=== PATIENT | female | born 1945 | race Caucasian/White ===

== ENCOUNTER 2021-03-30 06:44 | Day surgery (SDC) | payer MEDICARE, SELFPAY ==
--- NOTE | 2021-03-29 15:52 | HP.PCM_ITS ---
History and Physical Date of Admission: 03/30/21 Taniya Rendon 1945 ??? CHIEF COMPLAINT: left lower quadrant abdominal pain, screeening for colon cancer ? HPI: The patient is a 75 year old female presents with complaint of left lower quadrant abdominal pain. She underwent a CT scan to determine if there was a recurrence of her spigelian hernia, no hernia identified on CT scan. She has not had a previous colonoscopy and I have offered her one. She denies noting blood in her stools. ? PAST MEDICAL HISTORY ? Back pain ? ? Degenerative arthritis ? ? PAST SURGICAL HISTORY ? CHOLECYSTECTOMY HX ? 09/23/2003 ? INGUINAL HERNIA REPAIR HX ? 02/02/2009 ?? Medications ? peg 3350-Electrolytes (GOLYTELY) 236-22.74-6.74 -5.86 gram suspension Take 4,000 mL by mouth one time only for 1 dose. Refer to printed prep instructions from your provider. ? OTC NUTRITIONAL SUPPLEMENT plexux ? ALLERGIES: Sulfa (Sulfonamide Antibiotics) ? PERSONAL HISTORY: ? Smoking status: Never Smoker ? Smokeless tobacco: Never Used Substance Use Topics ? Alcohol use: Not on file ? Drug use: Not on file ? FAMILY HISTORY: no colon cancer known in family. ?? REVIEW OF SYSTEMS: General - denies fevers,?patient denies weight loss however IMO she has lost weight since I last took care of her Cardiovascular - denies chest pain,?unknown?history of MD had EKG changes but states that NM cardiac study was normal Pulmonary - denies shortness of breath, denies coughing up blood Gastrointestinal -?see HPI, denies previous colonoscopy, denies constipation or diarrhea, denies hematemesis, denies blood in stools Neurological - denies seizures, denies chronic numbness/weakness of extremities, denies chronic headaches Genitourinary - denies burning with urination, denies blood in urine Hematological - denies spontaneous/prolonged bleeding Skin - denies nonhealing skin wounds Musculoskeletal -?had recent stem cell injection in right hip (costing $12K) from [facility], has back and neck pain Endocrine - denies diabetes, no thyroid problems Psychological ??denies hallucinations ? PHYSICAL EXAMINATION: General: The patient is 75 year old female, well nourished, well hydrated in no acute distress. The patient is oriented to time, place, and person. VITALS: Blood pressure 122/64, pulse 96, temperature 36.7 ?C (98 ?F), height 167.6 cm (5' 6), weight 61.2 kg (135 lb), SpO2 100 %. Body mass index is 21.79 kg/m?. Head ? Normocephalic. EOM intact with sclera clear and no icterus noted. Mouth with mucus membranes moist. Neck - supple with no jugular venous distention noted. Trachea is midline. Lungs ? clear to auscultation. Normal breath sounds. No rales/rhonchi/wheezing noted. No labored breathing noted, such as retractions. No cough heard. Heart ? normal S1 and S2 auscultated. No rubs/clicks/murmurs noted. Regular rate. Abdomen ? soft and benign. Normal bowel sounds. Extremities ? no calf tenderness noted. No pitting edema noted. Skin ? normal skin integrity. Neurological ? gait normal, no focal deficits noted. Psych ? calm and appropriate IMPRESSION: screening for colon cancer via colonoscopy ? PLAN: I have discussed the above with the patient. I have offered colonoscopy, possible biopsies I have explained the procedure to the patient. I have counseled the patient as to the risks of the procedure, including but not limited to: infection, bleeding, injury to any intrabdominal organs such as liver/spleen, perforation of the GI tract, inability to complete the procedure, complications of anesthesia, etc. ? the patient understands. The patient wishes to proceed. I have answered all questions to the patient?s satisfaction and the patient has no further questions. . Diagnoses: (Z12.11) Screening for colon cancer (primary encounter diagnosis) Return to Clinic: The patient is instructed to follow-up with me as above. ? Elena Degroot MD v
[2021-03-30 07:10] VITALS: BP 138/69; PULSE 54; RESP 16; TEMP 37.1; O2SAT 100; BMI 22.1
[2021-03-30] MEDS: Lactated Ringers 1,000 ML 75 ML IV (07:10)
[2021-03-30 07:56] VITALS: BP 120/62; BP 138/69; PULSE 77; RESP 14; TEMP 36.4; O2SAT 99
--- NOTE | 2021-03-30 07:57 | OP.COLON_ITS ---
Patient Name: Taniya Rendon Procedure Date: 03/30/2021 7:23 AM Date of : 1945 Age: 75 Procedure: Colonoscopy Indications: Screening for colorectal malignant neoplasm Providers: Elena Degroot MD Referring MD: Eva Grant Medicines: See the Anesthesia note for documentation of the administered medications Patient Profile: Refer to note in patient chart for documentation of history and physical. Last Colonoscopy: none. The patient's first colonoscopy is today. Complications: No immediate complications. Procedure: Pre-Anesthesia Assessment: - see anesthesia note After I obtained informed consent, the scope was passed under direct vision. Throughout the procedure, the patient's blood pressure, pulse, and oxygen saturations were monitored continuously. The colonoscope was introduced through the anus and advanced to the cecum, identified by the appendiceal orifice, IC valve and transillumination. The colonoscopy was performed without difficulty. The patient tolerated the procedure well. The quality of the bowel preparation was adequate. Scope In: 7:33:10 AM Scope Withdrawal Time 0 hours 6 minutes 26 seconds Scope Out: 7:50:55 AM Total Procedure Duration Time 0 hours 17 minutes 45 seconds Findings: The perianal and digital rectal examinations were normal. Pertinent negatives include normal sphincter tone. Multiple small and large-mouthed diverticula were found in the sigmoid colon (tortuous sigmoid colon), descending colon and transverse colon. Non-bleeding internal hemorrhoids were found. Impression: - Diverticulosis in the sigmoid colon, in the descending colon and in the transverse colon. - Non-bleeding internal hemorrhoids. - No specimens collected. Recommendation: - Return to primary care physician PRN. - No repeat colonoscopy due to current age (66 years or older). - Continue present medications. Procedure Code(s): --- Professional --- G0121, Colorectal cancer screening; colonoscopy on individual not meeting criteria for high risk Diagnosis Code(s): --- Professional --- Z12.11, Encounter for screening for malignant neoplasm of colon K64.8, Other hemorrhoids K57.30, Diverticulosis of large intestine without perforation or abscess without bleeding CPT copyright 2017 [employer]. All rights reserved. The codes documented in this report are preliminary and upon robot technician review may be revised to meet current compliance requirements. MD Elena Davidson MD 03/30/2021 7:57:17 AM This report has been signed electronically. Number of Addenda: 0 Note Initiated On: 03/30/2021 7:23 AM
--- NOTE | 2021-03-30 07:57 | OP.CCLET_ITS ---
03/30/2021 Eva Grant Re : Colonoscopy procedure for Taniya Rendon Dear Juanita This procedure was performed on Tuesday, March 30, 2021. My impressions and recommendations are as follows: Impressions : - Diverticulosis in the sigmoid colon, in the descending colon and in the transverse colon. - Non-bleeding internal hemorrhoids. - No specimens collected. Recommendations : - Return to primary care physician PRN. - No repeat colonoscopy due to current age (66 years or older). - Continue present medications. My findings are described in the full procedure note, which is enclosed. If I can be of further assistance, please feel free to contact me at Doctor phone number(s): , Work: . Sincerely, MD Elena Davidson MD 03/30/2021 7:57:17 AM This report has been signed electronically.
[2021-03-30 08:00] VITALS: BP 124/52; BP 138/69; PULSE 79; RESP 18; O2SAT 99
[2021-03-30 08:05] VITALS: BP 121/80; BP 138/69; PULSE 78; RESP 18; O2SAT 99
[2021-03-30 08:12] VITALS: BP 125/66; BP 138/69; PULSE 79; RESP 18; TEMP 36.1; O2SAT 99
[2021-03-30 08:50] VITALS: BP 138/69
== END 2021-03-30 08:58 | disposition home or self-care (01) ==
LOC: EN 06:44 → AC 06:45
PROVIDERS: Visit Provider Surgery
PROC: 0DJD8ZZ Inspection of Lower Intestinal Tract, Via Natural or Artificial Opening Endoscopic (ICD-10-PCS; CPT 45378; principal; 2021-03-30 07:25)
DX: Z12.11 Encounter for screening for malignant neoplasm of colon (principal); K57.30 Diverticulosis of large intestine without perforation or abscess without bleeding; K64.8 Other hemorrhoids; M19.90 Unspecified osteoarthritis, unspecified site; Z86.2 Personal history of diseases of the blood and blood-forming organs and certain disorders involving the immune mechanism; Z86.73 Personal history of transient ischemic attack (TIA), and cerebral infarction without residual deficits
CPT/HCPCS: G0121; 87426; C9803; J7050; J7120; J2405

== ENCOUNTER 2022-08-31 12:54 | Day surgery (SDC) | payer OTHER, MEDICARE, SELFPAY ==
--- NOTE | 2022-08-30 14:00 | RAD_ITS ---
EXAM: XR CHEST, 2 VIEWS CLINICAL INDICATION: PRE-OP TECHNIQUE: Frontal and lateral views of the chest. This report was created using [employer] report generation technology. COMPARISON: None. FINDINGS: LUNGS AND PLEURAL SPACES: There is a calcified nodule in the right midlung. No pneumothorax. No effusion. HEART: Unremarkable. Cardiac silhouette not enlarged. MEDIASTINUM: Central airways and mediastinal contour are unremarkable. BONES/JOINTS: Unremarkable. SOFT TISSUES: Unremarkable. RAD/Chest PA and Lateral IMPRESSION: No acute findings in the chest. Electronically Signed: Karl Todd MD at 23:19 EST ,
[2022-08-30 14:43] LABS: Absolute Lymphocyte Count 2.27 X10^3/uL (0.83-4.51); Absolute Neutrophil Count 3.4 X10^3/uL (2.0-7.7); Basophil# 0.02 X10^3/uL; Basophil% 0.3 % (0-1); Eosinophil# 0.18 X10^3/uL; Eosinophils% 2.9 % (0-5); Hematocrit 40.1 % (37-47); Hemoglobin 12.6 g/dL (12.0-15.0); Lymphocyte # 2.27 X10^3/ul (0.83-4.51); Lymphocyte % 36.1 % (19-41); Mean Corp Hgb Conc 31.4 g/dL (32-36); Mean Corpuscular Hgb 27.9 pg (27.0-32.0); Mean Corpuscular Volume 88.9 fL (81-99); Mean Platelet Vol. 8.6 fl (6.2-12.0); Monocyte# 0.37 X10^3/uL; Monocyte% 5.9 % (0-10); NRBC Flagged by Analyzer 0 % (0-5); Neutrophil # 3.42 X10^3/uL (2.7-7.7); Neutrophil % 54.5 % (47-70); Platelet Count 317 K/mm3 (150-450); RBC Distribution Width CV 13.9 % (11.6-14.6); RBC Distribution Width SD 45.1 fl (35.1-43.9); Red Blood Count 4.51 M/mm3 (4.2-5.4); White Blood Count 6.3 K/mm3 (4.4-11.0)
[2022-08-30 15:05] LABS: Anion Gap 3 (5-15); BUN 15 mg/dL (7-18); BUN/Creat Ratio 20.5 RATIO (10-20); Calcium,Total 9.1 mg/dL (8.5-10.1); Chloride 106 mmol/L (98-107); Creatinine, Serum 0.73 mg/dL (0.55-1.02); EST Glomerular Filtration Rate 82 mL/min (>60); Est Glom Filt Rate - Afr Amer 100 mL/min (>60); Glucose 105 mg/dL (74-106); Potassium 3.3 mmol/L (3.5-5.1); Sodium Level 142 mmol/L (136-145)
--- NOTE | 2022-08-31 13:20 | RAD_ITS ---
STUDY: INTRAOPERATIVE FLUOROSCOPY TECHNIQUE: The examination was performed with referring physician in attendance. Under fluoroscopic observation, fluoroscopic images were obtained. Radiologist was not present for the study. Radiologist did not perform the procedure. This dictation is for documentation of the radiation dosage only. There is no interpretation of the images. TOTAL NUMBER OF IMAGES: 1 COMPARISON: None RADIATION DOSE: .29 mGy FLUOROSCOPY TIME: 30.1 seconds REASON FOR EXAM: FX Female, 77 years old. FINDINGS: 2 K wires visualized involving the base of the fifth proximal phalanx. RAD/Finger(s) Min 2 Views IMPRESSION: Fluoroscopic assistance images were obtained. Dictation for documentation purposes only. Electronically Signed: Mukul Avilez MD at 20:56 EST ,
[2022-08-31 13:24] VITALS: BP 123/46; PULSE 88; RESP 16; TEMP 36.8; O2SAT 100; BMI 26.2
[2022-08-31] MEDS: Lactated Ringers 1,000 ML 15 ML IV (13:40)
[2022-08-31] MEDS: Cefazolin 2 GM in 0.9% Normal Saline 100 ML IV (14:39)
[2022-08-31] MEDS: Lidocaine 1% (30 ml sdv) 30 ML Vial (14:45)
[2022-08-31 16:10] VITALS: BP 123/46; BP 132/68; PULSE 85; RESP 18; TEMP 36.8; O2SAT 100
--- NOTE | 2022-08-31 18:17 | DCINST_ITS ---
Discharge Instructions Follow Up Care Test Results: Test results from this visit will be discussed in further detail at your follow- up appointment, if applicable. Discharge Plan Admission Attending Provider: Olegario Grover Primary Care Provider: Eva Grant Instructions Additional Instructions / Restrictions: Follow preprinted instructions from your surgeons office. Discharge Orders/Prescriptions Prescriptions: No Action Plexus 2 - 4 cap PO/SL DAILY multivitamin Tablet 1 tab PO DAILY Referrals / Follow Up: Eva Grant DO [Primary Care Provider] - Olegario Grover DO [Med Staff - Active Staff] - Within 2 Weeks Disposition Disposition (needs filled in before D/C Order can be placed): Home, Self Care
--- NOTE | 2022-08-31 18:17 | OP.PCM_ITS ---
Report of Operation Date of Procedure: 08/31/22 Description of Surgical Findings:: Preoperative diagnosis: Right small finger proximal phalanx shaft fracture with intra-articular extension Postoperative diagnosis: Right small finger proximal phalanx shaft fracture with intra-articular extension Procedure: Right small finger proximal phalanx closed reduction percutaneous pinning Surgeon: Olegario Grover DO Anesthesia: Digital nerve block Complications: None apparent Drains: None Estimated blood loss: 5 cc Urinary output: None recorded IV fluids: Per anesthesia record Specimens: None Surgical implants: 0.045 K wires x2 Surgical indications: This is a 77-year-old female male who sustained a ground- level mechanical fall onto an outstretched right hand approximately 1 week ago. X-rays were obtained and demonstrated displaced proximal phalanx fracture of the right small finger she was placed in a finger splint by the emergency department and followed up in my office yesterday. There was rotational deformity and sagittal plane malalignment. I recommended surgical intervention in the form of closed versus open reduction with percutaneous pinning of the right small finger proximal phalanx. The risk, benefits, alternatives to the procedure reviewed with patient and parents at length and they agreed to proceed. Risks included but were not limited to bleeding, flexion, loss of life or limb, postoperative stiffness, need for therapy, long-term deformity. Informed consent obtained in the office. Description of procedure: Patient was identified in the preoperative holding area by name, medical record number, and date of . The operative extremity was marked. All questions were answered to patient's satisfaction. Informed consent confirmed. At time of her procedure, patient brought to the operative suite and positioned supine a standard operating table. All bony prominences were well-padded. 2 g Ancef was administered prior to the procedure by nursing staff. We prepped and draped the right hand and wrist in a normal, sterile orthopedic fashion. We then performed a timeout with all parties in attendance in agreement with the side, site, operation be performed. No concerns were voiced and would like to proceed with surgery. Then brought in C arm to act as a hand table. Prereduction fluoroscopic images were obtained. I then performed a closed reduction with longitudinal traction, MCP flexion, and external rotation of the digit. Reduction appeared ap propriate. I then placed 2 crossing percutaneous 0.045 K wires entering the collateral recesses of the fifth metacarpal head. Pins were driven through the MCP joint into the proximal phalanx. Placement and continued reduction was confirmed on orthogonal fluoroscopy. These were saved as finals. Pins were then bent and cut. Xeroform was placed around the pins. Bulky sterile compression dressing was then applied. Patient was placed in a well-padded ulnar gutter fiberglass splint with the wrist extended 10 degrees and MCP flexed 70 degrees. Patient tolerated procedure well without complication. She transferred his gurney and subsequently to same-day surgery in stable condition. Post Operative Plan: Weightbearing: Nonweightbearing operative extremity Antibiotics: None DVT Prophylaxis: None indicated Price: None Dressing: Maintain splint, keep it clean dry and intact until follow-up. Pins likely to be maintained for 3 weeks total. X-Rays: 2 week postop in the office Pain Medication: Hydrocodone provided as an outpatient Follow-up: 2 week post-operatively with me in the office
== END 2022-08-31 16:16 | disposition home or self-care (01) ==
LOC: SDC 12:55 → AC 12:55
PROVIDERS: Referring Provider Student in an Organized Health Care Education/Training Program; Visit Provider Student in an Organized Health Care Education/Training Program
PROC: (CPT 26727; principal; 2022-08-31 14:05)
DX: S62.616A Displaced fracture of proximal phalanx of right little finger, initial encounter for closed fracture (principal); W01.198A Fall on same level from slipping, tripping and stumbling with subsequent striking against other object, initial encounter; E66.3 Overweight; Z68.25 Body mass index [BMI] 25.0-25.9, adult
CPT/HCPCS: 26727; 01820; 36415; 71046; 73140; 76000; 80048; 85025; J7120

== ENCOUNTER 2022-12-21 10:00 | Outpatient (RCR) | payer OTHER, MEDICARE, SELFPAY ==
--- NOTE | 2022-11-28 07:20 | HP.OTEVAL ---
Patient's Visit Information LLOYD LUDWIG is a 77 year old F, referred to Occupational Therapy by Dr. Olegario Grover DO, with a diagnosis of right distal phal displaced fx LF. Date of Evaluation: 11/27/22 Occupational Therapist: Fawn Russell, OTR/Tay, CHT - Subjective This 77 year old female was seen for OT eval with dx of right LF displaced fx of proximal phalanx. pt states she had fall 1st week of 2021 suffering the finger fx. 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 pt states she is unsure how long she had pins in her finger but feels it was close to 8 weeks. pt states pins have been out and she has been trying to move her finger and make a fist but fingers are stiff and weak. pt would like to return to her PLOF with ADLs and IADls. - ROM MP: right 0/70 left 0/100 PIP: right -40/70 left 0/90 DIP: right -15/35 left 0/50 ROM Comments: pt demo with OA deformities in DIP and PIPJ - Strength Administrative Support Manager: right 15# left 45# Lateral Pinch: right 10# left 14# Tripod Pinch: right 6# left 8# Strength Comments: pt demo with weakness of right regional director and pinch strength - Sensation Thumb: right 3.22 left 2.83 Index: right 3.22 left 2.83 Middle: right 3.22 left 2.83 Ring: right 3.22 left 2.83 Little: right 3.22 left 2.83 - Quick DASH-Disab of Arm,Shoulder& Hand Quick DASH Score: 56.6650 - Goals Goal:ROM equal to unaffected hand: Yes Goal:Administrative Support Manager/Pinch strength at least 75% of unaffected hand: Yes Goal:No pain with affected hand use: Yes Goal:Full use of affected hand in daily activities including: Yes Other Goal: pt will demo understanding of joint protection and ad. eq. use as needed by d/c - Rehabilitation General Assessment: pt demo with decrease ROM of right LF and limited tight composite right fist. This limits pts ind. with ADls and IADls. Pt would benefit from skilled OT services 2x week for 6 weeks to increase functional ROM and strength to return pt to her PLOF. Today therapist reviewed ROM ex and discussed POC. pt demo understanding and agrees to POC. Rehabilitation Potential: Good - Anticipated Interventions A/AAROM/PROM, Strengthening, Modalities, Orthoses, Joint Protection/Energy Conservation, Home Program - Visit Plan Frequency: 2-3x /Week Duration: 6 Weeks TEXT: Thank you for the opportunity to evaluate your patient. For Medicare and Medicare HMO plans, please review the plan of care and approve it. It will need to be FAXED BACK to us at [phone] for Medicare purposes. Please let me know if there are questions or concerns regarding this plan of care. Physician Signature: Date:
--- NOTE | 2022-12-21 10:23 | HP.OTDCSUM ---
It has been my pleasure to treat LLOYD LUDWIG under orders from Dr. Olegario Grover, DO, for the diagnosis of right distal phal displaced fx LF for a total of 8 visit(s). Please see the following information for a summary of their discharge status. % Improvement: 80 Objective/Function: pt has had 8 OT sessions and is working consistently with her HEP. pt states pain is not there but has not noticed much change in ROM. left LF PIP 0/70. left LF MCP -40/75. left LF DIP -20/40. right senior executive assistant strength 30# this is a increase from 15#. pt continues to demo min. change in ROM however pain is much less and allowing her to use her hand with daily tasks and work tasks. Can vacuum and sweep without difficulty. pt d/c at this time with HEP Patient Goals: Regain Mobility, Decrease Pain, Use Hand/Wrist/Arm Normally Again, Be More Independent in ADLS, Resume Former Household Responsibilities (Cooking,Cleaning,Yard, etc.) Goal:ROM equal to unaffected hand: Yes Goal:Hospitalist Medical Director/Pinch strength at least 75% of unaffected hand: Yes Goal:No pain with affected hand use: Yes Goal:Full use of affected hand in daily activities including: Yes Other Goal: pt will demo understanding of joint protection and ad. eq. use as needed by d/c Plan: D/C Discharge Comments: Pt was seen for 8 OT sessions. pts ROM did not change much- but pts functional use returned and senior executive assistant strength to perform her ADLs and IADLs. pt was advised to continue with her HEP as tolerated - pt agree and agree to D/C. If there are questions or concerns regarding this patient's occupational therapy, please fell free to call me at [phone]. Thank you for the referral of this patient. Sincerely, Fawn Russell, OTR/L, CHT
== END 2022-12-21 19:00 | disposition home or self-care (01) ==
LOC: OT 10:00
PROVIDERS: Referring Provider Student in an Organized Health Care Education/Training Program; Visit Provider Student in an Organized Health Care Education/Training Program
DX: S62.616D Displaced fracture of proximal phalanx of right little finger, subsequent encounter for fracture with routine healing (principal)
CPT/HCPCS: 97110; 97140; 97166; 97530

== ENCOUNTER → 2023-03-12 | Outpatient (CLI) | payer MEDICARE, SELFPAY ==
--- NOTE | 2023-03-12 15:31 | CT_ITS ---
STUDY: CT CHEST WITHOUT CONTRAST REASON FOR EXAM: Female, 77 years old. CHEST PAIN OVERREAD ONLY RADIATION DOSAGE (If Supplied By Facility): CTDIvol = ( 26.35 ) mGy, DLP = ( 1333.51 ) mGycm TECHNIQUE: Transaxial imaging was performed without the administration of intravenous contrast material. Individualized dose optimization techniques were used for this CT. COMPARISON: No relevant priors. FINDINGS: CHEST Increased linear markings at the lung bases suggestive of scarring more prominent at the right lung base. There is no demonstrated pleural abnormality. There are calcifications of the coronary arteries. Calcified mediastinal lymph nodes. Calcified bilateral hilar lymph nodes. Normal unenhanced pulmonary arteries. Normal aorta arch and descending thoracic aorta. There are degenerative changes of the thoracic spine. Calcified hepatic and splenic granulomas. CT/Limited Chest CT Cardiac Only IMPRESSION: Coronary artery calcification. Electronically Signed: James Thompson MD at 15:07 EDT ,
[2023-03-12 15:36] VITALS: BP 122/50; PULSE 80; RESP 18; TEMP 36.6; O2SAT 97; BMI 25.6
[2023-03-12 15:56] VITALS: BP 122/50; PULSE 83
[2023-03-12] MEDS: Metoprolol Tartrate 5 MG/5 ML Vial IV ×2 (15:56→16:25)
[2023-03-12] MEDS: 0.9% Saline Lock 10 ML Syringe IV (15:59)
[2023-03-12 16:06] VITALS: BP 118/40; PULSE 66; RESP 18; O2SAT 99
[2023-03-12 16:25] VITALS: BP 115/75; PULSE 75
[2023-03-12 16:39] VITALS: BP 115/75; PULSE 70
[2023-03-12] MEDS: Nitroglycerin SL (ED/IMG/CATH) 0.4 MG TABLET SL (16:39)
[2023-03-12 16:51] VITALS: BP 115/50; PULSE 73; RESP 16; O2SAT 98
--- NOTE | 2023-03-14 07:56 | CCTA.WCONT ---
CCTA w/Cont Coronary Arteries Date of Study:: 03/14/23 Chest pain High-resolution computed tomographic imaging of the chest was performed on 03/12/2023 with particular attention paid to the coronary arteries. Images from the examination were analyzed for the presence and extent of coronary artery calcification using the coronary calcification quantification software. Intravenous contrast agent was also administered for evaluation of the coronary anatomy. Patient tolerated the procedure well there were no complications. There was minimal emergency registration artifact noted. The patient's score was then compared with published data relating to scores for people of similar age and gender. LEFT MAIN CORONARY ARTERY: This arose from the left coronary cusp and bifurcating to left anterior descending artery and left circumflex artery. No significant atherosclerotic plaquing was noted. Calcium score was 0. [] LEFT ANTERIOR DESCENDING CORONARY ARTERY: This was a medium size vessel which coursed towards the apex of the ventricle with minimal atherosclerotic plaquing noted and a calcium score of 0. [] LEFT CIRCUMFLEX CORONARY ARTERY: Nondominant vessel with no significant atherosclerotic plaquing noted. [] RIGHT CORONARY ARTERY: Dominant right coronary artery arising from the right coronary cusp with minimal atherosclerotic plaquing noted. CORONARY CALCIUM SCORE:0 Conclusion: Cardiac CT angio with a calcium score of 0 and minimal atherosclerotic plaquing noted.
== END | disposition home or self-care (01) ==
PROVIDERS: Referring Provider Internal Medicine Cardiovascular Disease; Visit Provider Internal Medicine Cardiovascular Disease
DX: R94.31 Abnormal electrocardiogram [ECG] [EKG] (principal); R07.89 Other chest pain
CPT/HCPCS: 75571; 75574; 76380; Q9967

== ENCOUNTER → 2023-04-28 | Outpatient (CLI) | payer MEDICARE, SELFPAY ==
--- NOTE | 2023-04-28 08:17 | CT_ITS ---
CT BILATERAL LOWER EXTREMITY WITH 3-D IMAGING CLINICAL INDICATION: PAIN RIGHT HIP MADISON PROTOCOL TECHNIQUE: Axial CT images of the BILATERAL lower extremity was performed without IV contrast material. Coronal and sagittal reformats were provided. RADIATION DOSAGE (If Supplied By Facility): CTDIvol = ( 13.96 ) mGy, DLP = ( 774.19 ) mGycm COMPARISON: No relevant prior comparison study available FINDINGS: Bones: Imaging of the right hip joint was obtained. There is a marked degree of joint space narrowing of the right hip joint with acetabular and femoral spur formation. 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 There is also evidence of moderate degree of joint space narrowing of the left hip joint with acetabular spurs. Imaging of both knee joints were obtained. There is a moderate degree of joint space narrowing and degenerative changes of both medial compartments. Soft Tissues: The deep soft tissue structures are unremarkable. The superficial soft tissues are unremarkable without evidence of edema, hematoma, or foreign body. CT/Extremity Lower without Contra IMPRESSION: Marked degree of joint space narrowing of the right hip joint with acetabular and femoral spur formation. 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 Moderate degree of the joint space narrowing of the left hip joint with acetabular spurs. Electronically Signed: James Thompson MD at 14:43 EDT ,
== END | disposition home or self-care (01) ==
PROVIDERS: Referring Provider Student in an Organized Health Care Education/Training Program; Visit Provider Student in an Organized Health Care Education/Training Program
DX: M25.551 Pain in right hip (principal)
CPT/HCPCS: 73700

== ENCOUNTER 2023-05-10 10:03 | Observation (INO) | payer MEDICARE, SELFPAY ==
[2023-04-24 16:34] LABS: Magnesium 2.2 mg/dL (1.6-2.6)
[2023-05-10] VITALS (14 sets, daily range): BP systolic 100–158; BP diastolic 51–84; PULSE 73–103; RESP 16–83; TEMP 36–36.8; O2SAT 96–100; BMI 26.6
--- NOTE | 2023-05-10 | HIP_PTH ---
PATIENT: LLOYD LUDWIG LOC: MS3 U#:[id number] AGE/SX: 77/F ROOM: [facility] [place] RE05/10/[address]: Dr. Olegario Grover DO : 1945 BED: 1 DIS: 05/11/2023 SPEC #: [id number] RECD: 05/10/23 12:22 STATUS: GILA BRIAN #: [id number] KIMBERLY: 05/10/23 00:[address]: Olegario Grover DEPT: SURGICAL PATHOLOGY RECD BY: Rafi Bustamante ENTERED: 05/10/23 12:22 SP TYPE: TOTAL HIP OTHR DR: DO Dr. Olegario Lang MD Tissues: Hip, NOS Procedures: Decalcification bone/plaque Surgery Specimen Level IV HEADER OPERATION: ERAS, total hip replacement robotic arm assist PRE-OP DIAGNOSIS: Severe osteoarthritis left hip TISSUE SUBMITTED: Right hip bone and tissue MICROSCOPIC DIAGNOSIS Bone and tissue of right hip, total hir resection: Severe degenerative joint disease. AM/am 05/16/23 MICROSCOPIC DESCRIPTION Slides are reviewed. GROSS DESCRIPTION Received is one container labeled with the patient's name and designated right hip bone and tissue. The specimen consists of a álvarez femoral head that measures 5.8 x 4.6 x 4.6 cm. The articular surface displays prominent osteophyte formation, eburnation and bone erosion. Also present in the specimen container are multiple irregular fragments of bone reamings, bone fragments and pink-yellow soft tissue measuring in aggregate 7.0 x 5.0 x 2.0 cm. Certified Anesthesiologist Assistant sections are submitted in two cassettes as follows: 1 - soft tissue, 2 - bone after decalcification. / AM:marla 05/10/2023 :5 CPT: 10889, 57932
[2023-05-10] MEDS: Lactated Ringers 1,000 ML 999 ML IV ×2 (06:31→10:20)
[2023-05-10] MEDS: Magnesium 1 GM over 15 mins IV (06:32)
[2023-05-10] MEDS: Gabapentin 600 MG Tablet PO (06:32)
[2023-05-10] MEDS: Acetaminophen 500 MG Tablet 1000 MG PO ×3 (06:33→23:13)
[2023-05-10 06:49] LABS: Bedside Glucose 91 mg/dL (74-106)
[2023-05-10] MEDS: Cefazolin 2 GM in 0.9% Normal Saline 100 ML IV (07:30)
[2023-05-10] MEDS: dexAMETHasone 10 MG/ML Vial IV (07:40)
[2023-05-10] MEDS: TXA 1000mg in NS100 100ml (IVPB at Incision) 660 MG IV (07:50)
[2023-05-10] MEDS: TXA 1000mg in NS100 100ml (IVPB at Closure) 660 MG IV (09:31)
[2023-05-10] MEDS: JPS (Morphine 10mg/ml) OPERA.SITE (09:31)
--- NOTE | 2023-05-10 10:01 | RAD_ITS ---
STUDY: X-RAY - PELVIS AND RIGHT HIP REASON FOR EXAM: Female, 77 years old. Total knee arthroplasty. Immediate postop evaluation. TECHNIQUE: 2 views of the pelvis and hip. COMPARISON: None. FINDINGS: Osteopenia with total hip arthroplasty in anatomic alignment with expected post-operative findings. No complications noted. Mild arthrosis of the left hip. RAD/Hip Min 2 Views (Portable) IMPRESSION: Placement of total hip arthroplasty in anatomic alignment without complications. Electronically Signed: Christian Bates MD at 11:05 EDT ,
--- NOTE | 2023-05-10 10:05 | PCM.OPRPT ---
Report of Operation Date of Procedure: 05/10/23 Description of Surgical Findings:: Preoperative diagnosis: Right hip primary osteoarthritis Postoperative diagnosis: Right hip primary osteoarthritis Procedure: Robotic assisted right total hip arthroplasty Surgeon: Olegario Grover DO Coal Mill Operator: Elina Cheney PA-C Anesthesia: Spinal with sedation Card Stripper: Rodolfo Keene CRNA Complications: None apparent Drains: None Estimated blood loss: 200 cc Urinary output: none recorded IV fluids: 1 L crystalloid Specimens: Femoral head Surgical implants: Giovani Accolade two 132 degree neck angle hip stem size #7, Biolox delta ceramic V 40 femoral head 36 mm outer diameter +2.5 mm neck length, [place] Trident X3 polyethylene insert, Trident 2 TriTanium cluster hole acetabular shell 50 mm diameter Indications: This is an 77-year-old female seen in the outpatient setting for right hip pain. X-rays revealed severe right hip osteoarthritis. She failed oral [id number]-[id number] analgesics including NSAIDs and Tylenol, activity modification. I recommended surgical intervention the form of right total hip arthroplasty. I reviewed the procedure with the patient, its risk, benefits, alternatives. Risks included but were not limited to bleeding, infection, loss of life or limb, risk of anesthesia, neurovascular injury, persistent pain, instability, need for additional surgery, failure of orthopedic hardware, loosening, osteolysis, need for assistive devices long-term, leg length discrepancy. Patient expressed understanding wish to proceed with surgery. Description of procedure: I greeted the patient in same-day surgery holding area the day of surgery. She was identified by name, medical record number, and date of . All questions were answered to patient satisfaction. The operative extremity was marked with a surgical marker. Informed consent was confirmed with the patient. Patient underwent spinal anesthetic in the PACU prior to the procedure. At time of her procedure, patient brought the operative suite and positioned supine initially on a standard operating table. Gentle MAC anesthesia was administered. Patient was then positioned in a lateral decubitus position with the right side up. An axillary roll was placed under the patient's left axilla. The left fibular head was free. We then prepped and draped the right lower extremity in normal, sterile orthopedic fashion. Prior to the procedure, the [facility] plan was reviewed and appeared appropriate based on the patient's CT scan and anatomy. We performed a timeout with all parties in attendance in agreement with the side, site, and operation to be performed. No concerns were voiced and would like to proceed. 1 g TXA IV as well as 2 g Ancef was administered prior to the incision by anesthesia staff. 1 g TXA IV was administered at time of closure additionally. I first elected to place our pelvic array with a curvilinear incision over the iliac crest just posterior to the ASIS. I bluntly dissected down the level of the periosteum. I then drilled 3 intracortical pins with excellent cortical purchase. Pelvic array was then assembled and positioned appropriately. I then turned my attention to the hip. A standard posterior lateral incision was made curvilinear over the posterior lateral hip, centered on the tip of the greater trochanter. Full-thickness skin incision was made, approximately 12 cm in length. I sharply dissected down the level of the fascia scott. Fascia scott was then incised in line with the incision. I bluntly dissected through the raphae of the gluteus donovan. Femoral checkpoint was placed at this point. We then registered her femoral anatomy prior to dislocating the hip. I then internally rotated the hip. Limited gluteal bursectomy was performed to identify the short external rotators. A Cobra retractor was placed in his gluteus medius. Short external rotators were taken down with Bovie cautery and tagged for later repair with #2 Ethibond suture. This identified the underlying capsule. A hockey-stick shaped capsulotomy was made over the femoral neck carried posteriorly to the acetabular labrum. Labrum was released and the hip was dislocated. I then marked a standard femoral neck cut 1 fingerbreadth above the lesser trochanter. Sagittal saw was used to carefully cut the femoral neck. Femoral head was removed and examined and appeared benign. It was sent to pathology per hospital policy. I then turned my attention to the acetabulum. Cobra retractors were placed anterior and posteriorly. Self-retaining retractor was placed superiorly. Acetabular labrum was excised with a long handled knife. Acetabular pulmonary was excised with Bovie cautery. Hemostasis was excellent at this point. I then registered the acetabulum with the [employer] robot successfully. I then brought in the Huber robot with the acetabular reaming arm to a size 50. This was reamed and the planned position to the planned depth. Reamer was then removed. There was excellent bleeding bone at the base and excellent remaining anterior posterior aburto of the acetabulum. 50 mm acetabular component was selected for and attached to the vocational rehabilitation supervisor arm of the robot. I placed the acetabular component near planned position before attaching to the robot. The robot then held the shell in position while I impacted it to an appropriate depth. The acetabular cup was then removed from the robotic arm. It had excellent rim fit. I drilled for a single cancellous screw 20 mm in length with excellent cancellous purchase. I then selected a 10 degree posterior lipped liner and impacted this per tool setter recommendations. I then turned my attention to the femur. Box chisel was then utilized to gain access to the femoral canal. Canal finder was placed. Sequential broaches were used and press-fit manner. A final size 7 achieved excellent vertical and rotational stability. We then trialed with a 132 degree hip stem as templated. A +5 and + 2.5 mm neck length were trialed. The + 2.5 mm neck achieved greater stability as well as allowed some lengthening of the limb, which was desired given her contralateral hip osteoarthritis. The +5 mm neck appeared to over tension her abductor tendons. Trials were then removed. We irrigated the wound with a 3-minute dilute Betadine bath and subsequent copious irrigation with normal saline solution. A size 7 stem was then impacted with excellent fixation. Final head was then impacted over clean, dry Boateng taper neck. Final reduction was performed. A posterior capsular repair was performed with #2 Ethibond suture and bone tunnels, as well as the short external rotator repair. Femoral checkpoint was removed. Pelvic array pins were removed. IT band was closed watertight with #1 strata fix suture. Deeper fascial layers were closed with 0 Vicryl suture in interrupted fashion. Subcutaneous layers were reapproximated with 2-0 Vicryl suture and skin reapproximated with running subcuticular 3-0 strata fix and skin glue. Pelvic array incision was closed with buried 2-0 Vicryl suture and skin glue.. A silver dressing was applied. Patient tolerated procedure well without complication. She was positioned back in the supine position on his hospital bed. He was transferred to PACU in stable condition. A pillow was placed between the patient's leg to be present while he is in bed. Need for skilled medical support assistant: Elina Cheney PA-C was critical to the outcome of the case. During the course of the procedure the physician medical support assistant played a vital role. Her intimate knowledge of my steps in the procedure aided in safe and expedient completion of the procedure. The PA played a vital role in positioning particularly in obtaining the appropriate positioning. The PA was also vital in the retraction of soft tissues during the exposure and projecting vital structures. The PA was also vital and protecting soft tissues during times of bony cuts. She also played a vital role in closure with my direct supervision. The PA was also important during reduction and dislocation of the joint and trials intraoperatively. Post Operative Plan: Patient will be placed in observation overnight given her multiple comorbidities and advanced age. Plan for discharge to home likely tomorrow. Weightbearing: Weightbearing as tolerated right lower extremity, posterior hip precautions. Pillows between legs while in bed Antibiotics: Ancef 1 g every 8 hours x 3 doses DVT Prophylaxis: Aspirin 81 mg twice daily to start tomorrow Price: None Dressing: Maintain silver dressing x 5 days X-Rays: PACU x-rays were reviewed demonstrated well-positioned right total hip arthroplasty implant. Follow-up 2-week x-rays in the office. Follow-up: 2 weeks in my office as scheduled
[2023-05-10] MEDS: Lactated Ringers 1,000 ML 125 ML IV (11:22)
[2023-05-10] MEDS: Ondansetron 4 MG/2 ML Vial IV (14:06)
[2023-05-10] MEDS: Ketorolac 30 MG/ML Syringe 15 MG IV (16:17)
[2023-05-10] MEDS: Cefazolin 1 GM/50 ML BAG IV ×2 (16:18→23:13)
[2023-05-10] MEDS: Ensure Surgery 237 ML LIQUID PO (18:18)
[2023-05-10] MEDS: Aspirin 81 MG TAB.CHEW PO (23:13)
[2023-05-10] MEDS: Senna/Docusate Sodium 1 Tablet 2 TABLET PO (23:13)
[2023-05-11 03:19] VITALS: BP 102/49; PULSE 95; RESP 12; TEMP 36.9; O2SAT 98
[2023-05-11 05:43] VITALS: O2SAT 99
[2023-05-11 05:45] VITALS: BP 128/70; PULSE 94; RESP 16; TEMP 36.8; O2SAT 97
[2023-05-11] MEDS: Acetaminophen 500 MG Tablet 1000 MG PO ×2 (06:04→15:21)
[2023-05-11] MEDS: oxyCODONE 5 MG Tablet PO (06:05)
[2023-05-11 07:15] LABS: Hematocrit 28.8 % (37-47); Mean Corp Hgb Conc 31.3 g/dL (32-36); Mean Corpuscular Hgb 28.8 pg (27.0-32.0); Platelet Count 278 K/mm3 (150-450); RBC Distribution Width CV 14.1 % (11.6-14.6); RBC Distribution Width SD 47.5 fl (35.1-43.9); Red Blood Count 3.13 M/mm3 (4.2-5.4); White Blood Count 13.4 K/mm3 (4.4-11.0)
--- NOTE | 2023-05-11 07:31 | PCM.PN.ORT ---
Subjective Subjective Patient seen and examined. Up with therapy yesterday and was able to ambulate across the room. Pain controlled with current pain regimen. Denies any fevers, chills, nausea vomiting, chest pain or shortness of breath. Urinating without difficulty. Objective Data Objective Data Vital Signs: Vital Signs Temp Pulse Resp BP Pulse Ox O2 Del Method O2 Flow Rate 98.2 F 94 16 128/70 H 97 Room Air 2 05/11/23 05:45 05/11/23 05:45 05/11/23 05:45 05/11/23 05:45 05/11/23 05:45 05/11/23 05:45 05/11/23 05:43 Oxygen Flow Rate (L/min) 2 Oxygen Delivery Method Room Air Weight: 155 lb 3.287 oz Body Mass Index (BMI) 26.6 Intake & Output: Intake and Output for Last 24 Hours 05/09/23 05/10/23 05/11/23 23:59 23:59 23:59 Intake Total 4632 / 4632 Output Total 1350 / 1350 650 / 650 Balance 3282 / 3282 -650 / -650 Lab / Micro Data 05/11/23 05:50 05/11/23 05:50 Labs: Laboratory Results - last 24 hr 05/11/23 05:50: WBC 13.4 H, RBC 3.13 L, Hgb 9.0 L, Hct 28.8 L, MCV 92.0, MCH 28.8, MCHC 31.3 L, RDW Std Deviation 47.5 H, RDW Coeff of Honorio 14.1, Plt Count 278, MPV 9.0 Micro: Microbiology 04/24/23 15:57 Interface Orders Nasal Screen MRSA/MSSA - Final Radiography Diagnostic Testing: Radiology Impression Hip X-Ray 05/10/23 10:01 IMPRESSION: Placement of total hip arthroplasty in anatomic alignment without complications. Electronically Signed: Christian Bates MD at 11:05 EDT , Physical Exam Narrative General - A&Ox3, NAD. VSS/AF Right lower extremity -incisional dressing C/D/I. SILT Sural, Saphenous, SPN, DPN, Tibial N. distributions. DP, PT 2+. BCR. DF, PF, EHL /. No calf TTP. Assessment & Plan Assessment/Plan (1) Post-op pain: PLAN: POD#1 s/p robotic assisted right total hip arthroplasty - Pain control - Medicine following for medical management - PT/OT -weightbearing as tolerated with a walker, posterior precautions - DVT PPX -Multimodal with SCDs, ED sigala, early mobilization and aspirin 81 mg twice daily - Case management - D/C planning Anticipate discharge home today if therapy goals are met.-
[2023-05-11 07:34] LABS: Anion Gap 2 (5-15); BUN 18 mg/dL (7-18); Calcium,Total 8.7 mg/dL (8.5-10.1); Chloride 109 mmol/L (98-107); Creatinine, Serum 0.67 mg/dL (0.55-1.02); EST Glomerular Filtration Rate 91 mL/min (>60); Est Glom Filt Rate - Afr Amer 111 mL/min (>60); Estimated Creatinine Clearance 41.33 ml/min; Glucose 132 mg/dL (74-106); Potassium 3.8 mmol/L (3.5-5.1); Sodium Level 142 mmol/L (136-145)
[2023-05-11] MEDS: Aspirin 81 MG TAB.CHEW PO (08:05)
[2023-05-11] MEDS: Senna/Docusate Sodium 1 Tablet 2 TABLET PO (08:05)
[2023-05-11] MEDS: Ensure Surgery 237 ML LIQUID PO (08:05)
[2023-05-11] MEDS: Famotidine 20 MG Tablet PO (08:05)
[2023-05-11 08:12] VITALS: BP 105/48; PULSE 86; RESP 18; TEMP 36.9; O2SAT 93
--- NOTE | 2023-05-11 09:24 | PCM.PN.HOSP ---
Subjective Subjective Pain controlled no issues overnight Objective Data Objective Data Vital Signs: Vital Signs Temp Pulse Resp BP Pulse Ox O2 Del Method O2 Flow Rate 98.4 F 86 18 105/48 L 93 Room Air 2 05/11/23 08:12 05/11/23 08:12 05/11/23 08:12 05/11/23 08:12 05/11/23 08:12 05/11/23 08:12 05/11/23 05:43 Oxygen Flow Rate (L/min) 2 Oxygen Delivery Method Room Air Weight: 155 lb 3.287 oz Body Mass Index (BMI) 26.6 Intake & Output: Intake and Output for Last 24 Hours 05/10/23 05/11/23 05/12/23 03:59 03:59 03:59 Intake Total 4632 / 4632 Output Total 1350 / 1350 650 / 650 Balance 3282 / 3282 -650 / -650 Lab / Micro Data 05/11/23 05:50 05/11/23 05:50 Labs: Laboratory Results - last 24 hr 05/11/23 05:50: WBC 13.4 H, RBC 3.13 L, Hgb 9.0 L, Hct 28.8 L, MCV 92.0, MCH 28.8, MCHC 31.3 L, RDW Std Deviation 47.5 H, RDW Coeff of Honorio 14.1, Plt Count 278, MPV 9.0, Sodium 142, Potassium 3.8, Chloride 109 H, Carbon Dioxide 31.0, Anion Gap 2 L, BUN 18, Creatinine 0.67, Estim Creat Clear Calc 41.33, Est GFR (MDRD) Af Amer 111, Est GFR (MDRD) Non-Af 91, BUN/Creatinine Ratio 27.0 H, Glucose 132 H, Calcium 8.7 Micro: Microbiology 04/24/23 15:57 Interface Orders Nasal Screen MRSA/MSSA - Final Radiography Diagnostic Testing: Radiology Impression Hip X-Ray 05/10/23 10:01 IMPRESSION: Placement of total hip arthroplasty in anatomic alignment without complications. Electronically Signed: Christian Bates MD at 11:05 EDT , Physical Exam Narrative General: Alert, Oriented x3, Cooperative, No apparent distress HEENT: Atraumatic, PERRLA, EOMI, Normocephalic Oral: Moist Mucosa Neck: Supple, No JVD Lungs: Clear to auscultation, Normal air movement, No rhonchi, No wheeze, No rales Cardiovascular: Regular rate, Regular Rhythm, Normal S1, Normal S2, No murmurs Abdomen: Soft, Non Tender, Non-Distended, No Hepato-splenomegaly Extremities: No edema, Capillary Refill Less than 3 Seconds Skin: Dressing CDI Musculoskeletal: No Tenderness to Palpation of Joints or Extremities Neurological: Cranial nerves II-XII grossly intact, Motor Exam 5/5 strength throughout, Sensory exam intact to light touch and pain Psych/Mental Status: Normal Affect, Appropriate Assessment & Plan Assessment/Plan (1) Status post total hip replacement, right: PLAN: Plan 1. Status post right total hip arthroplasty 1723 ? Pain management per primary ? PT/OT ? Medically cleared for discharge, she has no medical history We will sign off Charges/Coding Visit Charges Office Visits / Consults: 23850 OV L2 New
--- NOTE | 2023-05-11 10:22 | CASEMGMT ---
?Met with patient to complete TEAGUE form. TEAGUE form explained to patient who voiced understanding and signed form. Original form placed in pt?s chart and copy provided to patient. Deidra Chapman, Discharge Planning Asst.?
--- NOTE | 2023-05-11 12:10 | PCM.DC.SUM ---
Providers Date of Admission: 05/10/23 Primary Care Physician: Dr. Eva Grant, DO Consultations 05/10/23 10:01 Consult: Hospitalist Routine Consulting Provider: Olegario Rodriguez Reason for Consult: Medical management s/p R total hip EMERGENT Consult: No MD Notified: Yes Date Notified: 05/10/23 Time Notified: 12:08 Method of Notification: Text Reason For Visit: Total Hip Replacement Robotic Arm A Diagnosis Discharge Diagnosis (1) Status post total hip replacement, right: Status: Acute Code(s): Z96.641 - Presence of right artificial hip joint Medications at Discharge Home Medications Plexus 2 - 4 cap PO/SL DAILY 03/25/21 multivitamin 1 tab PO DAILY 08/30/22 acetaminophen 650 mg tablet,extended release (Arthritis Pain Relief (acetaminophen) ER) 1,300 mg PO Q12H PRN pain 04/25/23 aspirin 81 mg chewable tablet 81 mg PO BIDCM 28 days #56 tabs 05/11/23 famotidine 20 mg tablet 20 mg PO DAILY 14 days #14 tabs 05/11/23 oxycodone 5 mg tablet 5 mg PO Q4H PRN pain 7 days #42 tabs 05/11/23 sennosides 8.6 mg-docusate sodium 50 mg tablet (Stool Softener-Stimulant Laxative) 2 tab PO BID 7 days #28 tabs 05/11/23 Hospital Course Summary of Care Provided Minutes Spent on Discharge: 15 Hospital Course: Patient underwent elective uncomplicated right total hip arthroplasty with robotic arm assist on 05/10/23. She was admitted postoperatively for medical monitoring and early convalescence. No medical or surgical complications were encountered throughout her stay. She worked well with physical and occupational therapies. A hospitalist consult was placed for medical management during her stay. She was able to be safely discharged to home on postoperative day #1. Physical Exam Narrative General - A&Ox3, NAD. VSS/AF Right lower extremity -incisional dressing C/D/I. SILT Sural, Saphenous, SPN, DPN, Tibial N. distributions. DP, PT 2+. BCR. DF, PF, EHL 5/5. No calf TTP. Weight / BMI Weight Weight: 155 lb 3.287 oz Body Mass Index (BMI) 26.6 ABG / Lab / Microbiology Data 05/11/23 05:50 05/11/23 05:50 Laboratory: Laboratory Results - last 24 hr 05/11/23 05:50: WBC 13.4 H, RBC 3.13 L, Hgb 9.0 L, Hct 28.8 L, MCV 92.0, MCH 28.8, MCHC 31.3 L, RDW Std Deviation 47.5 H, RDW Coeff of Honorio 14.1, Plt Count 278, MPV 9.0, Sodium 142, Potassium 3.8, Chloride 109 H, Carbon Dioxide 31.0, Anion Gap 2 L, BUN 18, Creatinine 0.67, Estim Creat Clear Calc 41.33, Est GFR (MDRD) Af Amer 111, Est GFR (MDRD) Non-Af 91, BUN/Creatinine Ratio 27.0 H, Glucose 132 H, Calcium 8.7 Microbiology: Microbiology 04/24/23 15:57 Interface Orders Nasal Screen MRSA/MSSA - Final Meaningful Use Info Meaningful Use Diagnoses (Choose all that apply): None applicable Discharge Plan Admission Admit Date/Time: 05/10/23 10:03 Primary Reason for Your Visit: Right total hip replacement Attending Provider: Olegario Grover Primary Care Provider: Eva Grant Consulting Providers: Olegario Rodriguez Instructions Additional Instructions / Restrictions: Follow preprinted instructions from your surgeons office Discharge Orders/Prescriptions Prescriptions: New oxycodone 5 mg tablet 5 mg PO Q4H PRN (Reason: pain) 7 Days Qty: 42 0RF sennosides-docusate sodium [Stool Softener-Stimulant Laxat] 8.6-50 mg Tablet 2 tab PO BID 7 Days Qty: 28 0RF famotidine 20 mg Tablet 20 mg PO DAILY 14 Days Qty: 14 0RF aspirin 81 mg Tablet,Chewable 81 mg PO BIDCM 28 Days Qty: 56 0RF Continued Plexus 2 - 4 cap PO/SL DAILY multivitamin Tablet 1 tab PO DAILY acetaminophen [Arthritis Pain Relief (acetam)] 650 mg tablet extended release 1,300 mg PO Q12H PRN (Reason: pain) Referrals / Follow Up: Eva Grant DO [Primary Care Provider] - Olegario Grover DO [Med Staff - Active Staff] - Disposition Disposition (needs filled in before D/C Order can be placed): Home, Self Care
--- NOTE | 2023-05-11 12:46 | CASEMGMT ---
PARUL TIRADO Assessment: Face to Face with pt for initial transition planning/care coordination assessment. PARUL TIRADO introduced self and role at [facility], pt voices understanding and consents to assessment. Pt is A/O x4 and answers all questions appropriately at this time. Pt sitting up in chair in no distress. Care providers, pharmacy, and demographics verified/updated. Admitting Dx: THR PCP:Juanita Specialists:emma Grover; stan Mccloud Preferred Pharmacy: [facility] Insurance: [place] [facility] Prescription Benefit: yes LNOK: Ag Rendon, Living Arrangements: Pt lives with in a single story home with a ramp to enter. Pt reports she is I in ADL's except her assists with lower body dressing. Pt denies concerns at home. Transportation: Pt drives self and denies concerns with transportation. Pt will provide transportation until pt is able to medically again. DME/HHC/SNF: Pt has a rollator that she has been using. She has a FWW, cane, lift chair and shower chair. Pt denies hx of HHC or SNF stays. Pt states no concerns with going home at time of dc. She has outpt therapy set up for Sunday at [facility]. Pt states no further concerns/needs. CM to follow. Advised pt to ask CM if any further question/concerns/needs arise, voices understanding. Pt Goal: Home with outpt therapy already set up Plan: Home with outpt therapy already set up
[2023-05-11 15:25] VITALS: BP 118/66; PULSE 107; RESP 18; TEMP 36.7; O2SAT 96
--- NOTE | 2023-05-11 15:28 | NURSING ---
Pt sent home with extra pair of large thigh high short teds.
== END 2023-05-11 15:28 | disposition home or self-care (01) ==
LOC: SDC 10:26 → MS3 10:26
PROVIDERS: Anesthesiology; Admitting Provider Student in an Organized Health Care Education/Training Program; Referring Provider Student in an Organized Health Care Education/Training Program; Visit Provider Student in an Organized Health Care Education/Training Program
PROC: 8E0Y0CZ Robotic Assisted Procedure of Lower Extremity, Open Approach (ICD-10-PCS; CPT 27130; principal; 2023-05-10 07:00)
DX: M16.11 Unilateral primary osteoarthritis, right hip (principal); M35.3 Polymyalgia rheumatica; Z79.899 Other long term (current) drug therapy; R06.02 Shortness of breath; Z86.73 Personal history of transient ischemic attack (TIA), and cerebral infarction without residual deficits; N39.3 Stress incontinence (female) (male)
CPT/HCPCS: 27130; S2900; 01214; 36415; 73502; 80048; 82962; 83735; 85027; 87077; 87081; 88305; 88311; 94668; 96361; 96365; 96366; 96375; 97110; 97116; 97162; 97166; 97530; 97535; 99221; C1776; J7120; G0378; J2405; J3475

== ENCOUNTER 2024-02-12 10:39 | Inpatient (IN) | payer MEDICARE, SELFPAY ==
[2024-02-12 00:08] VITALS: BMI 25.0
[2024-02-12 00:39] VITALS: BP 114/70; PULSE 86; RESP 16; TEMP 36.6; O2SAT 95
[2024-02-12] MEDS: 0.9% Normal Saline (1000mL) 1,000 ML 100 ML IV ×3 (01:30→22:42)
[2024-02-12 02:20] VITALS: BP 107/51; PULSE 82; RESP 18; TEMP 36.4; O2SAT 95
[2024-02-12 06:31] VITALS: BP 109/61; PULSE 80; RESP 18; TEMP 36.6; O2SAT 99
[2024-02-12 06:42] LABS: Absolute Lymphocyte Count 1.45 X10^3/uL (0.83-4.51); Absolute Neutrophil Count 4.1 X10^3/uL (2.0-7.7); Basophil# 0.04 X10^3/uL; Basophil% 0.7 % (0-1); Eosinophil# 0.05 X10^3/uL; Eosinophils% 0.8 % (0-5); Hematocrit 37.2 % (37-47); Hemoglobin 11.4 g/dL (12.0-15.0); Lymphocyte # 1.45 X10^3/ul (0.83-4.51); Lymphocyte % 24.5 % (19-41); Mean Corp Hgb Conc 30.6 g/dL (32-36); Mean Corpuscular Hgb 25.2 pg (27.0-32.0); Mean Corpuscular Volume 82.1 fL (81-99); Mean Platelet Vol. 8.9 fl (6.2-12.0); Monocyte# 0.31 X10^3/uL; Monocyte% 5.2 % (0-10); NRBC Flagged by Analyzer 0 % (0-5); Neutrophil # 4.06 X10^3/uL (2.7-7.7); Neutrophil % 68.5 % (47-70); Platelet Count 308 K/mm3 (150-450); RBC Distribution Width CV 16.2 % (11.6-14.6); RBC Distribution Width SD 48.9 fl (35.1-43.9); Red Blood Count 4.53 M/mm3 (4.2-5.4); White Blood Count 5.9 K/mm3 (4.4-11.0)
[2024-02-12 07:18] LABS: Anion Gap 7 (5-15); BUN 9 mg/dL (7-18); BUN/Creat Ratio 14.8 RATIO (10-20); Chloride 106 mmol/L (98-107); Creatinine, Serum 0.61 mg/dL (0.55-1.02); EST Glomerular Filtration Rate 101 mL/min (>60); Est Glom Filt Rate - Afr Amer 122 mL/min (>60); Estimated Creatinine Clearance 55.09 ml/min; Glucose 101 mg/dL (74-106); Potassium 3.4 mmol/L (3.5-5.1); Sodium Level 140 mmol/L (136-145)
--- NOTE | 2024-02-12 07:29 | HP.PCM.SX_ITS ---
HPI - General General Date of Admission: 02/11/24 HPI Narrative LLOYD LUDWIG, is a 78 F who presents with vomiting and pain. She says that for the last 2 weeks she has been having vomiting and has not been able to eat and has been having weight loss. She has been having mild pain for the last 2 weeks. She says that yesterday the pain got worse and it was sharp and in her lower abdomen. She also had vomiting x 5 yesterday. She did have a bowel movement yesterday. She is reporting that she is passing a little bit of flatus. She was transferred from outside hospital. She reports that she has had cholecystectomy in the past and several hernia repairs. She had have bowel obstruction this past winter that resolved conservatively [facility] Medical History (Updated 02/12/24 @ 07:[address] Angel Cole MD) Polymyalgia rheumatica History of steroid therapy Ambulates with cane History of pain when walking History of stress test Cardiology follow-up encounter History of echocardiogram Depression Osteoporosis Former smoker Wears glasses Wears dentures Walker as ambulation aid Arthritis Bladder disease Anemia Back pain TIA (transient ischemic attack) Injury of head and neck Syncope Non-smoker Shortness of breath on exertion History of edema History of irregular heartbeat Home Medications ?Medication ?Instructions ?Recorded ?Last Taken ?Type Plexus 2 - 4 cap PO/SL DAILY stomach 03/25/21 Unknown History multivitamin 1 tab PO DAILY supplement 08/30/22 Unknown History Allergy/AdvReac Type Severity Reaction Status Date / Time red dye Allergy Itching Verified 04/25/23 14:38 Sulfa (Sulfonamide Allergy unsure Verified 04/25/23 14:38 Antibiotics) monosodium glutamate AdvReac Vomiting Verified 04/25/23 14:38 Surgical History Status post total hip replacement, right Hx of surgical procedure Hx of colonoscopy Hx of hernia repair Hx laparoscopic cholecystectomy Social History Smoking Status: Never smoker ROS Constitutional Constitutional: Reports anorexia; Denies fever(s) Eyes Eyes: Denies blurry vision ENT HEENT: Denies abnormal hearing Cardiovascular Cardiovascular: Denies chest pain Respiratory/Chest Respiratory/Chest: Denies cough or dyspnea Gastrointestinal Gastrointestinal: Reports abdominal pain and vomiting; Denies coffee ground emesis, melena or nausea Genitourinary Genitourinary: Denies change in urinary stream Musculoskeletal Musculoskeletal: Denies abnormal gait Integumentary Integumentary: Denies jaundice Neurologic Neurologic: Denies abnormal gait Psychiatric Psychiatric: Denies depression Endocrine Endocrinology: Denies flushing Vital Signs Vital Signs Vital Signs: 02/12/24 00:01 02/12/24 00:39 02/12/24 02:20 Temperature 97.9 F 97.5 F L Temperature Source Oral Oral Pulse Rate 86 82 Respiratory Rate 16 18 Respiratory Effort Normal Non-Labored Respiratory Depth Normal Respiratory Pattern Normal Blood Pressure 114/70 107/51 L Blood Pressure Mean 84 69 Blood Pressure Source Monitor Blood Pressure Position Semi-Fowlers Blood Pressure Location Right Arm Pulse Ox 95 95 Oxygen Delivery Method Room Air Room Air Room Air 02/12/24 06:31 Temperature 97.9 F Temperature Source Oral Pulse Rate 80 Respiratory Rate 18 Respiratory Effort Respiratory Depth Respiratory Pattern Blood Pressure 109/61 Blood Pressure Mean 77 Blood Pressure Source Monitor Blood Pressure Position Semi-Fowlers Blood Pressure Location Right Arm Pulse Ox 99 Oxygen Delivery Method Room Air Weight Weight: 145 lb 11.609 oz Body Mass Index (BMI) 25.0 Physical Exam Const oriented x3 and no apparent distress Resp normal respiratory effort GI soft to palpation Inspection: abdominal distention Palpation: tender LLQ Extremity normal to inspection Results Lab / Micro Data 02/12/24 06:06 02/12/24 06:06 Labs: Laboratory Results - last 24 hr 02/12/24 06:06: WBC 5.9, RBC 4.53, Hgb 11.4 L, Hct 37.2, MCV 82.1, MCH 25.2 L, M CHC 30.6 L, RDW Std Deviation 48.9 H, RDW Coeff of Honorio 16.2 H, Plt Count 308, MPV 8.9, Immature Gran % (Auto) 0.300, Neut % (Auto) 68.5, Lymph % (Auto) 24.5, [place] % (Auto) 5.2, Eos % (Auto) 0.8, Baso % (Auto) 0.7, Absolute Neuts (auto) 4.1, Absolute Lymphs (auto) 1.45, Nucleated RBC % 0, Sodium 140, Potassium 3.4 L , Chloride 106, Carbon Dioxide 27.0, Anion Gap 7, BUN 9, Creatinine 0.61, Estim Creat Clear Calc 55.09, Est GFR (MDRD) Af Amer 122, Est GFR (MDRD) Non-Af 101, BUN/Creatinine Ratio 14.8, Glucose 101, Calcium 9.0 Assessment & Plan Assessment/Plan (1) Small bowel obstruction: PLAN: I reviewed her imaging from outside hospital. Patient has a small bowel obstruction in the distal ileum. It appears to be in the right lower quadrant. The patient was having a lot of abdominal pain yesterday but reports overnight she had resolution of this and she feels better than she has in the last for 5 days. I will order a small bowel follow-through today. Labs are normal. Patient has hypokalemia and will be replaced. Angel Cole MD Pager: [facility] [address] [place] [address], [address] [place] [phone] Office:
--- NOTE | 2024-02-12 08:00 | RAD_ITS ---
EXAMINATION: SMALL BOWEL FOLLOW THROUGH INDICATION: Evaluate for small bowel obstruction. TECHNIQUE: After a preliminary study, Gastrografin was administered orally. Images were obtained at 2 hours. COMPARISON: CT of the abdomen and pelvis dated February 11, 2024 FINDINGS: Preliminary film shows cholecystectomy clips and right total hip arthroplasty with extensive osteopenia and distal thoracic and lumbosacral spondylosis with moderate arthrosis of the left hip. After administration of Gastrografin there is immediate opacification of jejunum. Study at 2 hours shows normal morphology of the jejunum and ileum with contrast extending into the colon to the mid descending colon. No disproportionate dilatation of bowel. No mass effect. No other abnormality. RAD/Small Bowel Series Only IMPRESSION: No abnormality of the small bowel follow-through study. Electronically Signed: Christian Bates MD at 10:43 EDT ,
[2024-02-12] MEDS: Potassium Chloride 10mEq/100mL 10 MEQ/100 ML IV.SOLN. 100 MEQ IV BOLUS ×3 (10:47→14:03)
[2024-02-12 10:56] VITALS: PULSE 80; O2SAT 94
[2024-02-12] MEDS: Morphine 2 MG/ML Syringe IV (11:11)
--- NOTE | 2024-02-12 11:15 | CASEMGMT ---
PARUL TIRADO Assessment: PARUL TIRADO to room to meet with pt for initial transition planning/care coordination assessment. PARUL TIRADO introduced self and role at [facility], pt voices understanding and consents to assessment. SonRajinder, @ bedside and pt agreeable to him being present during assessment. Pt is A/O and answers all questions appropriately at this time. Pt resting in bed in no distress. Care providers, pharmacy, and demographics verified/updated. PCP: Dr Grant Specialists: Dr Grover, ortho; [facility] @ discharge. Insurance: [employer] [facility] Prescription Benefit: yes LNOK: Ag Rendon, . SonRajinder Living Arrangements: Pt lives with in a single story home with basement and ramp to enter. Pt's granddaughter and her family are in the process of moving in. Pt reports she is I in ADL's except her assists with lower body dressing. Pt denies concerns at home. Granddaughter has been doing most home mgnt tasks. Transportation: Pt drives self and denies concerns with transportation. also drives. DME: Pt has a rollator that she mostly uses when outside. She has a lift chair that she sleeps in @ night. She has a FWW, cane, and shower chair available but does not use. HHC/SNF: Pt denies hx of HHC or SNF stays. She declines wanting HHC or OP therapy. She was made aware to f/u with PCP if she changes her mind. She voices understanding. She states her son and granddaughter are both nurses and they can help her if needed. She declines need for therapy @ discharge. She has done OP therapy in the past. Pt states no concerns with going home at time of dc. Pt states no further concerns/needs. CM to follow. Advised pt to ask CM if any further question/concerns/needs arise, voices understanding. Plan: Home Darwin DAVEY RN, CM
[2024-02-12 14:08] VITALS: BP 142/68; PULSE 88; RESP 18; TEMP 36.9; O2SAT 96
[2024-02-12 22:52] VITALS: BP 92/51; PULSE 79; RESP 18; TEMP 36.9; O2SAT 95
[2024-02-13 05:00] VITALS: BP 123/61; PULSE 75; RESP 16; TEMP 36.8; O2SAT 97
--- NOTE | 2024-02-13 06:56 | PCM.PN.SRG ---
Subjective Subjective Patient had small bowel follow-through yesterday. She reports 5 bowel movements overnight. She is not having any abdominal pain or nausea or vomiting this morning. Objective Data Objective Data Vital Signs: Vital Signs Temp Pulse Resp BP Pulse Ox O2 Del Method 98.2 F 75 16 123/61 H 97 Room Air 02/13/24 05:00 02/13/24 05:00 02/13/24 05:00 02/13/24 05:00 02/13/24 05:00 02/13/24 05:00 Oxygen Delivery Method Room Air Weight: 145 lb 11.609 oz Body Mass Index (BMI) 25.0 Intake & Output: Intake and Output for Last 24 Hours 02/11/24 02/12/24 02/13/24 23:59 23:59 23:59 Intake Total 2531.67 / 2531.67 Balance 2531.67 / 1.67 Medical Nutrition Assessment Dietitian: Malnutrition Criteria Met Start: 02/12/24 11:29 Freq: Status: Active Protocol: Document 02/12/24 11:29 (Rec: 02/12/24 11:29 [id number]) Nutrition Malnutrition Evidence of Malnutrition Exists Yes Malnutrition (moderate): Acute Illness/Injury Evidenced By Suboptimal Energy Intake ( Moderate),Weight Loss (Severe) Clinical Problem Acute Disease or Injury Related Malnutrition Etiology moderate related to altered GI function Signs/Symptoms as evidenced by 9.3lbs (6%) weight loss in ~2 weeks and PO intakes <75% of estimated energy needs x2 weeks Status Active Problem Recommendation Dietitian Recommendations/Changes ADAT to Low Fiber diet when medically able to manage medical conditions. Recommend 120mL Ensure Clear 4x daily with medpass when diet advances to clear liquid diet to provide supplemental energy. Lab / Micro Data 02/12/24 06:06 02/12/24 06:06 Labs: Laboratory Results - last 24 hr 02/12/24 06:06: Sodium 140, Potassium 3.4 L, Chloride 106, Carbon Dioxide 27.0, Anion Gap 7, BUN 9, Creatinine 0.61, Estim Creat Clear Calc 55.09, Est GFR (MDRD) Af Amer 122, Est GFR (MDRD) Non-Af 101, BUN/Creatinine Ratio 14.8, Glucose 101, Calcium 9.0 Radiography Diagnostic Testing: Radiology Impression Small Bowel X-Ray 02/12/24 08:00 IMPRESSION: No abnormality of the small bowel follow-through study. Electronically Signed: Christian Bates MD at 10:43 EDT , Physical Exam Const oriented x3 and no apparent distress Resp normal respiratory effort GI soft to palpation and non-tender Assessment & Plan Assessment/Plan (1) Small bowel obstruction: PLAN: I ordered a small bowel follow-through yesterday which showed immediate passage of contrast with no dilation. Start her on a clear liquid diet around lunchtime but she says no one took her order until dinner. She did tolerate some clear liquids. She has not tried regular food. She seems very upset as to how she has been treated in the hospital. She was upset that no one came to take her order this morning for food. If she tolerates regular diet this morning I will let her go home. Seems that her bowel obstruction has resolved. Angel Cole MD Pager: [facility] [address] [place] [address], [address] [place] [address] Office:
[2024-02-13 07:59] LABS: Magnesium 1.8 mg/dL (1.6-2.6); Phosphorus 2.9 mg/dL (2.5-4.9)
[2024-02-13 11:00] VITALS: BP 154/64; PULSE 78; RESP 16; TEMP 37.6; O2SAT 96
[2024-02-13] MEDS: Morphine 2 MG/ML Syringe IV (11:51)
[2024-02-13] MEDS: 0.9% Saline Lock 10 ML Syringe IV (11:51)
--- NOTE | 2024-02-13 13:11 | PN_ITS ---
Progress Note Patient reports that she is tolerating lunch. She does not have any nausea. She did have a little bit of lower abdominal pain with the eating. She says she is having copious amounts of diarrhea. Continue to observe. Patient would like to go home today but I would like to see her tolerating more of her diet and make sure she does not become dehydrated from her diarrhea. Angel Cole MD Pager: [facility] [address] [place] [address], [address] [place] [address] Office:
--- NOTE | 2024-02-13 15:09 | PCM.DC.SUM ---
Providers Date of Admission: 02/12/24 Primary Care Physician: Dr. Eva Grant DO Reason For Visit: SMALL BOWEL OBSTRUCTION Diagnosis Discharge Diagnosis (1) Small bowel obstruction: Status: Acute Code(s): K56.609 - Unspecified intestinal obstruction, unspecified as to partial versus complete obstruction Medications at Discharge Home Medications Plexus 2 - 4 cap PO/SL DAILY stomach 03/25/21 multivitamin 1 tab PO DAILY supplement 08/30/22 Hospital Course Summary of Care Provided Minutes Spent on Discharge: 35 Hospital Course: Patient is a 78 y/o F who was transferred from an outside facility with a small bowel obstruction. Small bowel follow-through was completed and did not demonstrate any abnormality of the small bowel. Patient's hospitalization was uneventful. Upon discharge, patient is tolerating a regular diet. She did have some pain which she was given IV morphine for. Patient consumed majority of her lunch without any pain. She notes the loose stools/diarrhea has slowed down. She is passing flatus. Patient is very persistent about wanting to go home today. She voices not wanting to stay another night. Physical Exam GI normal to inspection, nondistended, normoactive bowel sounds Medical Records Data Medical Nutrition Assessment Dietitian: Malnutrition Criteria Met Start: 02/12/24 11:29 Freq: Status: Active Protocol: Document 02/12/24 11:29 (Rec: 02/12/24 11:29 [id number]) Nutrition Malnutrition Evidence of Malnutrition Exists Yes Malnutrition (moderate): Acute Illness/Injury Evidenced By Suboptimal Energy Intake ( Moderate),Weight Loss (Severe) Clinical Problem Acute Disease or Injury Related Malnutrition Etiology moderate related to altered GI function Signs/Symptoms as evidenced by 9.3lbs (6%) weight loss in ~2 weeks and PO intakes <75% of estimated energy needs x2 weeks Status Active Problem Recommendation Dietitian Recommendations/Changes ADAT to Low Fiber diet when medically able to manage medical conditions. Recommend 120mL Ensure Clear 4x daily with medpass when diet advances to clear liquid diet to provide supplemental energy. Weight / BMI Weight Weight: 145 lb 11.609 oz Body Mass Index (BMI) 25.0 ABG / Lab / Microbiology Data 02/12/24 06:06 02/12/24 06:06 Laboratory: Laboratory Results - last 24 hr 02/13/24 07:07: Phosphorus 2.9, Magnesium 1.8 D/C Instructions Discharge Diet: - (low fiber diet for 2 weeks then advance to regular diet as tolerated) Please Follow Up With: Angel Cole MD When: Follow-up as needed with our office. Our office number is [phone] Meaningful Use Info Meaningful Use Meaningful Use Diagnoses (Choose all that apply): None applicable Ischemic Stroke Statin Dosing Therapy Reference: STATIN DOSE THERAPY REFERENCE: * Patients > 75 years receive moderate or high dose statin therapy. * Patients 75 years or YOUNGER should receive HIGH intensity statin dose unless contraindicated. You will be required to document reason for non-treatment if statin daily dose does not meet guidelines. HIGH DOSE STATIN THERAPY DAILY Atorvastatin > than or = to 40 mg Rosuvastatin > than or = to 20 mg Amlodipine + Atorvastatin > than or = to 2.5/40 mg Ezetimibe + Simvastatin 10/80 mg Simvastatin 80mg Discharge Plan Admission Admit Date/Time: 02/12/24 10:39 Primary Reason for Your Visit: small bowel obstruction Attending Provider: Angel Cole Primary Care Provider: Eva Grant Instructions Additional Instructions / Restrictions: What are low-fiber foods? If your doctor tells you to follow a low-fiber diet, here are low-fiber foods you can eat and higher-fiber foods you should avoid. Remember to always choose foods that you would normally eat. Do not try any foods that caused you discomfort or allergic reactions in the past. If you are on a ?low-residue diet,? your food choices are even more restricted than those listed below. Talk with your cancer care team or dietitian if you have questions about certain foods or amounts. Meat, fish, poultry, and protein Eat: Tender cuts of meat Ground meat Tofu Fish and shellfish Smooth peanut butter Eggs Bake, broil, or poach meats, and use mild seasonings. Try preparing meats as stews, roasts, meatloaves, casseroles, sandwiches, and soups using ingredients on the approved lists. Scramble, poach, or boil eggs; or make omelets, souffl?s, custard, puddings, and casseroles, using ingredients noted below. You might want to ask your doctor, nurse, or dietitian about other foods may be OK for you to eat, and find out when you can go back to your normal diet. Avoid: All beans, nuts, peas, lentils, and legumes Processed meats, hot dogs, sausage, and cold cuts Tough meats with gristle Dairy: Milk and cheese Eat: Only in small to medium amounts and only if they don?t cause problems for you Milk, chocolate milk, buttermilk, and milk drinks Yogurt without seeds or granola Sour cream Cheese Cottage cheese Custard or pudding Ice cream or frozen desserts (without nuts) Cream sauces, soups, and casseroles You can use these items in desserts, snacks, or breads. Bread, cereals, and grains Eat: White breads, waffles, Lebanese toast, plain white rolls, or white bread toast Pretzels Plain pasta or noodles White rice Crackers, zwieback, ita, and matzoh (no cracked wheat or whole grains) Cereals without whole grains, added fiber, seeds, raisins, or other dried fruit Use white flour for baking and making sauces. Grains, such as white rice, Cream of Wheat, or grits, should be well-cooked. Include the above grains in casseroles, dumplings, souffl?s, cheese strata, kugels, and pudding. Avoid any food that contains: Brown or wild rice Whole grains, cracked grains, or whole wheat products Kasha (buckwheat) Cornbread or cornmeal Dm crackers Bran Wheat germ Nuts Granola Coconut Dried fruit Seeds Vegetables and potatoes Eat: Tender, well-cooked fresh or canned vegetables without seeds, stems, or skins Cooked sweet or white potatoes without skins Strained vegetable juices without pulp or spices You can also eat these with cream sauces, or in soups, souffl?s, kugels, and casseroles. Avoid: All raw or steamed vegetables All types of beans Potatoes with skin Peas [place] Cabbage, broccoli, cauliflower, Boston sprouts, and greens Sauerkraut Onions Fruits and desserts Eat: Soft canned or cooked fruit without seeds or skins (small amounts) Small amounts of well-ripened banana Strained or clear juices Small amounts of soft cantaloupe or honeydew melon Cookies and other desserts without whole grains, dried fruit, berries, nuts, or coconut Sherbet and popsicles Serving suggestions include gelatins, milk shakes, frozen desserts, puddings, tapioca, cakes, and sauces. Avoid: All raw or dried fruits Berries Prune juice, prunes, and raisins Other foods Eat: Mayonnaise and mild salad dressings Margarine, butter, cream, and oils in small amounts Plain gravies Plain bouillon and broth Ketchup and mild mustard Spices, cooked herbs, and salt Sugar, honey, and syrup Clear jellies Hard candy and marshmallows Plain chocolate Avoid: Marmalade Pickles, olives, relish, and horseradish Popcorn Potato chips Liquids Keep in mind that low-fiber foods cause fewer bowel movements and smaller stools. You may need to drink extra fluids to help prevent constipation while you are on a low-fiber diet. Drink plenty of water unless your doctor tells you otherwise, and use juices and milk as noted above. Discharge Orders/Prescriptions Prescriptions: Continued Plexus 2 - 4 cap PO/SL DAILY multivitamin Tablet 1 tab PO DAILY Referrals / Follow Up: Eva Grant DO [Primary Care Provider] - Disposition Disposition (needs filled in before D/C Order can be placed): Home, Self Care Charges/Coding Visit Charges Inpatient E&M: 10832 Disch Hosp >30min
[2024-02-13 16:00] VITALS: BP 128/62; PULSE 80; RESP 16; TEMP 37; O2SAT 97
== END 2024-02-13 16:50 | disposition home or self-care (01) | DRG 389 ==
PROVIDERS: Admitting Provider Surgery; Visit Provider Surgery
DX: K56.609 Unspecified intestinal obstruction, unspecified as to partial versus complete obstruction (principal); E44.0 Moderate protein-calorie malnutrition; E87.6 Hypokalemia; R19.7 Diarrhea, unspecified; Z86.73 Personal history of transient ischemic attack (TIA), and cerebral infarction without residual deficits; Z90.49 Acquired absence of other specified parts of digestive tract; Z68.25 Body mass index [BMI] 25.0-25.9, adult
CPT/HCPCS: 36415; 74250; 80048; 83735; 84100; 85025; J7030; A4216

== ENCOUNTER 2024-03-26 10:46 | Inpatient (IN) | payer MEDICARE, SELFPAY ==
[2024-03-26 10:47] VITALS: BP 134/71; PULSE 90; RESP 18; TEMP 36.4; O2SAT 97
[2024-03-26 10:48] VITALS: BMI 24.3
--- NOTE | 2024-03-26 11:03 | EX.ED.DYSGE1 ---
HPI History of Present Illness Chief Complaint: Abd Pain [facility] Medical History (Updated 03/26/24 @ 16:08 by Liza Sheriff) Dyspnea Scarlet fever GERD (gastroesophageal reflux disease) Polymyalgia rheumatica History of steroid therapy Ambulates with cane History of pain when walking History of stress test Cardiology follow-up encounter History of echocardiogram Depression Osteoporosis Former smoker Wears glasses Wears dentures Walker as ambulation aid Arthritis Bladder disease Anemia Back pain TIA (transient ischemic attack) Injury of head and neck Syncope Non-smoker Shortness of breath on exertion History of edema History of irregular heartbeat Home Medications ?Medication ?Instructions ?Recorded ?Last Taken ?Type Plexus 2 - 4 cap PO/SL DAILY stomach 03/25/21 Unknown History multivitamin 1 tab PO DAILY supplement 08/30/22 Unknown History docusate sodium 100 mg tablet 100 mg PO DAILY 03/26/24 03/26/24 History Allergy/AdvReac Type Severity Reaction Status Date / Time red dye Allergy Itching Verified 03/26/24 10:47 Sulfa (Sulfonamide Allergy unsure Verified 03/26/24 10:47 Antibiotics) monosodium glutamate AdvReac Vomiting Verified 03/26/24 10:47 Surgical History (Updated 03/26/24 @ 16:08 by Liza Sheriff) History of cholecystectomy Status post total hip replacement, right Hx of surgical procedure Hx of colonoscopy Hx of hernia repair Hx laparoscopic cholecystectomy Social History Smoking Status: Never smoker EXAM Physical Exam Const Vital Signs: 03/26/24 10:47 03/26/24 12:46 03/26/24 14:00 Temperature 97.6 F L Temperature Source Temporal Pulse Rate 90 90 83 Respiratory Rate 18 18 16 Blood Pressure 134/71 H 138/68 H 151/76 H Blood Pressure Mean 92 91 101 Pulse Ox 97 99 95 Oxygen Delivery Method Room Air Room Air MDM MDM MDM Narrative Medical decision making narrative: HISTORY OF PRESENT ILLNESS: 78year old female presents with abdominal pain. Notes abdominal pain and vomiting for last couple weeks. Notes right lower quad abdominal pain that is constant severe. Notes nonbloody nonbilious vomiting as well. Denies burning with urination but does note increased urinary frequency over the last several days. Denies diarrhea, constipation. Denies melena or hematochezia. REVIEW OF SYSTEMS: All other systems reviewed and are negative except as noted in the history of present illness. At least 10 review of systems reviewed and are negative except as noted in history of present illness. PHYSICAL EXAM: Nursing triage notes reviewed, Vital signs reviewed Constitutional: please see [facility] HENT: MMM Eyes: Pupils equal round and reactive to light, Extraocular muscles intact Neck: No stridor, no JVD, full neck ROM Lungs: Clear to auscultation, No wheezing or rales. No increased work of breathing, no conversational dyspnea, no accessory muscle use, no nasal flaring. No respiratory distress noted Heart: Regular rate and rhythm, No murmurs, No rubs and No gallops, 2+ distal pulses (radial, femoral, posterior tibial) in all extremities Abdomen: Soft, no rigidity, rebound or guarding, no obvious peritoneal signs, no palpable pulsatile abdominal masses, no auscultated abdominal bruit : No CVAT Extremities: No edema Neuro: No focal neurological deficits, cranial nerves II through XII intact, 5/5 strength in all extremities. Intact sensation to light touch in all extremities, 2+ reflexes bilateral patella tendons. Normal gait. No ataxia. Skin: No rash or lesions noted MEDICAL DECISION MAKING: Chief Complaint: abdominal pain External records reviewed: Imaging reviewed: Reviewed x-ray from 02/12/2024. There is no abnormality of the small bowel follow-through on this study. Factors affecting care: Status post cholecystectomy Social determinants of health:none History obtained from others: Family Consults: General surgery, internal medicine [facility] Narrative: The patient was initially hemodynamically stable, afebrile and nontoxic-appearing. Exam with right lower quadrant TTP. I considered the following differential diagnosis: AAA, small bowel obstruction, abdominal perforation, appendicitis, pancreatitis, hepatobiliary pathology (acute cholecystitis), mesenteric ischemia, abnormalities such as pyelonephritis, nephrolithiasis I obtained a broad lab and imaging workup to further elucidate etiology patient complaints. I treat the patient with IV fluids, Zofran and Toradol for pain and symptom control. ALL IMAGES (IF OBTAINED) HAVE BEEN PERSONALLY REVIEWED AND INTERPRETED BY MYSELF. CT scan abdomen pelvis shows evidence of small bowel obstruction CBC without leukocytosis, severe anemia, no thrombocytopenia. Lactate is wnl indicating no end-organ hypoperfusion and/or hypoxia. Lipase is wnl indicating no pancreatic inflammation. BMP without evidence of significant electrolyte abnormalities, no anion gap, no acute kidney injury. Urinalysis consistent with UTI (will give ceftriaxone) I consulted surgery who spoke to Dr. Cole who recommended admission to medicine. He did no recommend acute surgical intervention. Spoke with Dr. Pena who agreed admit the patient. The patient and/or family, caregivers express understanding. The patient and/or family, caregivers agrees with the plan. Total critical care time today provided was at least 0 minutes. This excludes separately billable procedures. Critical care time (if documented) is secondary to the patient having high probability of clinically significant/life threatening deterioration in the patient's condition which required my urgent intervention. Shared decision making: I will have a discussion with the patient and or visitors regarding risk/benefits of further testing or admission. They will be made aware of of the risk/benefits inherent in this decision they will be given the opportunity to voice understanding. Impression: 1. Small bowel obstruction 2. Acute UTI 3. Nausea vomiting Disposition: Admit to [facility] Carlito Stephen DO This note was generated with [employer] dictation software. It may contain incorrect words, spelling, and punctuation that were not noted in review of the chart prior to signing. Lab Data Labs: Laboratory Results - last 24 hr 03/26/24 03/26/24 11:25 11:53 WBC 5.7 RBC 4.61 Hgb 11.6 L Hct 37.4 MCV 81.1 MCH 25.2 L MCHC 31.0 L RDW Std Deviation 47.8 H RDW Coeff of Honorio 16.3 H Plt Count 321 MPV 8.8 Immature Gran % (Auto) 0.200 Neut % (Auto) 62.3 Lymph % (Auto) 25.8 [place] % (Auto) 7.7 Eos % (Auto) 3.5 Baso % (Auto) 0.5 Absolute Neuts (auto) 3.5 Absolute Lymphs (auto) 1.47 Nucleated RBC % 0 Sodium 140 Potassium 3.2 L Chloride 104 Carbon Dioxide 29.0 Anion Gap 7 BUN 13 Creatinine 0.77 Est GFR (MDRD) Af Amer 93 Est GFR (MDRD) Non-Af 77 BUN/Creatinine Ratio 16.8 Glucose 106 Lactic Acid 1.3 Calcium 9.1 Lipase 29 Urine Color Yellow Urine Clarity Sl. Cloudy Urine pH 5.0 Ur Specific [place] 1.020 Urine Protein 30 H Urine Glucose (UA) Normal Urine Ketones 5 H Urine Occult Blood 250 H Urine Nitrite Positive H Urine Bilirubin 1 H Urine Urobilinogen 1 H Ur Leukocyte Esterase 500 H Urine RBC 0-5 SEEN Urine WBC 10-25 SEEN Ur Squamous Epith Cells 0-5 SEEN Urine Bacteria 1+ Urine Mucus 0 SEEN Radiography Diagnostic Testing: Clinical Impression(s) from Imaging Studies Abdomen/Pelvis CT 03/26/24 11:05 IMPRESSION: Focal enteritis or early/partial small bowel obstruction of a loop of small bowel in the pelvis without evidence of ischemia or perforation. Electronically Signed: Tristian Gonzales MD at 12:49 EDT , Discharge Plan Disposition Disposition: Acute Care Hospital [facility] Discharge Date/Time: 03/26/24 15:32
--- NOTE | 2024-03-26 11:05 | CT_ITS ---
STUDY: CT ABDOMEN AND PELVIS WITH CONTRAST REASON FOR EXAM: Female, 78 years old. Abdominal pain, vomiting RADIATION DOSAGE (If Supplied By Facility): CTDIvol = ( 13.44 ) mGy, DLP = ( 646.14 ) mGycm TECHNIQUE: Transaxial images were obtained from the dome of the diaphragm to the symphysis pubis without oral contrast. IV 100mL Isovue-370 was administered. Sagittal and coronal images were reconstructed. Individualized dose optimization techniques were used for this CT. COMPARISON: 02/11/2024 FINDINGS: The visualized lung bases are unremarkable. The visualized portions of the heart are within normal limits. Normal liver. There are surgical clips in the gallbladder fossa consistent with a prior cholecystectomy. Normal spleen. Normal pancreas. Normal bilateral adrenal glands. Ptotic right kidney. Suspect 2 mm nonobstructing stone midsection of right kidney. No hydronephrosis, ureteral stone, ureteral dilatation. Normal left kidney. Normal visualized stomach. Prominent loop of small bowel in the pelvis with mild dilatation filled with feculent material and wall thickening. There is a questionable transition point at the right lateral margin of the dilated loop of bowel on image 80. However, there is no dilatation of more proximal small bowel. Differential diagnosis includes focal enteritis or early partial small bowel obstruction. No pneumatosis to suggest ischemia. No pneumoperitoneum to suggest perforation. There are multiple colonic diverticula consistent with diverticulosis. There is non-visualization of the appendix. Normal abdominal aorta. Normal inferior vena cava. Prominent left ovarian vein and parametrial veins which can be seen in pelvic congestion syndrome. Normal urinary bladder. Status post repair of hernia of the lateral aspect of the abdominal wall on the left with mesh. No residual recurrent hernia. Mild S-shaped scoliosis of lumbar spine with degenerative disc disease. Status post right hip arthroplasty.
[2024-03-26 11:39] LABS: Absolute Lymphocyte Count 1.47 X10^3/uL (0.83-4.51); Absolute Neutrophil Count 3.5 X10^3/uL (2.0-7.7); Basophil# 0.03 X10^3/uL; Basophil% 0.5 % (0-1); Eosinophils% 3.5 % (0-5); Hematocrit 37.4 % (37-47); Hemoglobin 11.6 g/dL (12.0-15.0); Lymphocyte # 1.47 X10^3/ul (0.83-4.51); Lymphocyte % 25.8 % (19-41); Mean Corpuscular Hgb 25.2 pg (27.0-32.0); Mean Corpuscular Volume 81.1 fL (81-99); Mean Platelet Vol. 8.8 fl (6.2-12.0); Monocyte# 0.44 X10^3/uL; Monocyte% 7.7 % (0-10); NRBC Flagged by Analyzer 0 % (0-5); Neutrophil # 3.54 X10^3/uL (2.7-7.7); Neutrophil % 62.3 % (47-70); Platelet Count 321 K/mm3 (150-450); RBC Distribution Width CV 16.3 % (11.6-14.6); RBC Distribution Width SD 47.8 fl (35.1-43.9); Red Blood Count 4.61 M/mm3 (4.2-5.4); White Blood Count 5.7 K/mm3 (4.4-11.0)
[2024-03-26] MEDS: 0.9% Normal Saline (1000mL) 1,000 ML 999 ML IV (11:40)
[2024-03-26] MEDS: Ketorolac 15 MG/ML Vial IV ×2 (11:40→18:33)
[2024-03-26] MEDS: Ondansetron 4 MG/2 ML Vial IV (11:41)
[2024-03-26 11:49] LABS: Anion Gap 7 (5-15); BUN 13 mg/dL (7-18); BUN/Creat Ratio 16.8 RATIO (10-20); Calcium,Total 9.1 mg/dL (8.5-10.1); Chloride 104 mmol/L (98-107); Creatinine, Serum 0.77 mg/dL (0.55-1.02); EST Glomerular Filtration Rate 77 mL/min (>60); Est Glom Filt Rate - Afr Amer 93 mL/min (>60); Glucose 106 mg/dL (74-106); Lipase 29 U/L (13-75); Potassium 3.2 mmol/L (3.5-5.1); Sodium Level 140 mmol/L (136-145)
[2024-03-26 11:58] LABS: Mucous, Urine 0 SEEN /hpf (<or=2+)
[2024-03-26 12:00] LABS: Lactic Acid 1.3 mmol/L (0.4-1.9)
[2024-03-26 12:00] LABS: Color, Urine Yellow (Yellow); Glucose, Dipstick Normal (Normal); Ketone-Dipstick 5 mg/dl (Negative); Leukocyte Esterase-Dipstick 500 /ul (Negative); Nitrite-Dipstick Positive (Negative); Occult Blood-Urine 250 /ul (Negative); Protein-Dipstick 30 mg/dl (Negative); Urine Clarity Sl. Cloudy (Clear); Urine Urobilinogen 1 mg/dl (Normal)
[2024-03-26 12:15] LABS: Urine Bilirubin Dipstick 1 mg/dL (Negative)
[2024-03-26 12:17] LABS: Bacteria 1+ /hpf (None Seen); Red Blood Cells-Urine 0-5 SEEN /hpf (0-5); Squamous Epithelial Cells - UA 0-5 SEEN /hpf (5-10); White Blood Cells 10-25 SEEN /hpf (0-5)
[2024-03-26 12:46] VITALS: BP 138/68; PULSE 90; RESP 18; O2SAT 99
[2024-03-26 14:00] VITALS: BP 151/76; PULSE 83; RESP 16; O2SAT 95
[2024-03-26] MEDS: Ceftriaxone 1 GM/50 ML BAG IV (14:08)
--- NOTE | 2024-03-26 14:19 | CON.PCM.SX_ITS ---
Assessment & Plan Assessment/Plan (1) Small bowel obstruction: PLAN: The patient repeat CT scan which showed small bowel obstruction. There is a loop of small bowel that has fecalization in the pelvis. It appears to be the same area that she was obstructed last time in January. At this point I recommend surgery to evaluate. She has been vomiting for 2 months. I recommend exploratory laparoscopy with evaluation and possible bowel resection. I discussed this with her and her son in detail. I discussed the risks including but not limited to bleeding, infection, injury other organs such as the bowel or bladder. Tomorrow is a holiday so I will plan for surgery on Sunday. I recommend IV fluids and keeping her n.p.o. and if she starts to have nausea placing an NG tube. Angel Cole MD Pager: [facility] [address] [place] [address], [address] [place] [phone] Office: HPI Consult Data Date of Consult: 03/26/24 HPI Narrative HPI Narrative: LLOYD LUDWIG, is a 78 F who presents with nausea and vomiting and abdominal pain. The patient was recently here in January with a bowel obstruction. She said since then she has been vomiting and having pain. She says she has been having daily bowel movements. She said she vomited twice today. [facility] Medical History Polymyalgia rheumatica History of steroid therapy Ambulates with cane History of pain when walking History of stress test Cardiology follow-up encounter History of echocardiogram Depression Osteoporosis Former smoker Wears glasses Wears dentures Walker as ambulation aid Arthritis Bladder disease Anemia Back pain TIA (transient ischemic attack) Injury of head and neck Syncope Non-smoker Shortness of breath on exertion History of edema History of irregular heartbeat Home Medications ?Medication ?Instructions ?Recorded ?Last Taken ?Type Plexus 2 - 4 cap PO/SL DAILY stomach 03/25/21 Unknown History multivitamin 1 tab PO DAILY supplement 08/30/22 Unknown History docusate sodium 100 mg tablet 100 mg PO DAILY 03/26/24 03/26/24 History Allergy/AdvReac Type Severity Reaction Status Date / Time red dye Allergy Itching Verified 03/26/24 10:47 Sulfa (Sulfonamide Allergy unsure Verified 03/26/24 10:47 Antibiotics) monosodium glutamate AdvReac Vomiting Verified 03/26/24 10:47 Surgical History Status post total hip replacement, right Hx of surgical procedure Hx of colonoscopy Hx of hernia repair Hx laparoscopic cholecystectomy Social History Smoking Status: Never smoker ROS Constitutional Constitutional: Reports anorexia; Denies chills, fatigue or fever(s) Eyes Eyes: Denies blurry vision ENT HEENT: Denies abnormal hearing Cardiovascular Cardiovascular: Denies chest pain Respiratory/Chest Respiratory/Chest: Denies cough or dyspnea Gastrointestinal Gastrointestinal: Reports abdominal pain, nausea and vomiting Genitourinary Genitourinary: Denies change in urinary stream Musculoskeletal Musculoskeletal: Denies abnormal gait Neurologic Neurologic: Denies abnormal gait Psychiatric Psychiatric: Denies anxiety Endocrine Endocrinology: Denies heat intolerance Hematologic/Lymphatic Hematologic/Lymphatic: Denies easy bleeding Physical Exam Const alert and oriented x3 HEENT normocephalic Head and Scalp: normal to inspection Eyes PERRL Resp normal respiratory effort Cardio Rate: regular rate Rhythm: regular rhythm GI soft to palpation Inspection: abdominal distention Palpation: tender Extremity normal to inspection Lab / Micro Data 03/26/24 11:25 03/26/24 11:25 Labs: Laboratory Results - last 24 hr 03/26/24 11:25: WBC 5.7, RBC 4.61, Hgb 11.6 L, Hct 37.4, MCV 81.1, MCH 25.2 L, M CHC 31.0 L, RDW Std Deviation 47.8 H, RDW Coeff of Honorio 16.3 H, Plt Count 321, MPV 8.8, Immature Gran % (Auto) 0.200, Neut % (Auto) 62.3, Lymph % (Auto) 25.8, [place] % (Auto) 7.7, Eos % (Auto) 3.5, Baso % (Auto) 0.5, Absolute Neuts (auto) 3.5, Absolute Lymphs (auto) 1.47, Nucleated RBC % 0, Sodium 140, Potassium 3.2 L , Chloride 104, Carbon Dioxide 29.0, Anion Gap 7, BUN 13, Creatinine 0.77, Est GFR (MDRD) Af Amer 93, Est GFR (MDRD) Non-Af 77, BUN/Creatinine Ratio 16.8, Glucose 106, Lactic Acid 1.3, Calcium 9.1, Lipase 29 03/26/24 11:53: Urine Color Yellow, Urine Clarity Sl. Cloudy, Urine pH 5.0, Ur Specific [place] 1.020, Urine Protein 30 H, Urine Glucose (UA) Normal, Urine Ketones 5 H, Urine Occult Blood 250 H, Urine Nitrite Positive H, Urine Bilirubin 1 H, Urine Urobilinogen 1 H, Ur Leukocyte Esterase 500 H, Urine RBC 0-5 SEEN, Urine WBC 10-25 SEEN, Ur Squamous Epith Cells 0-5 SEEN, Urine Bacteria 1+, Urine Mucus 0 SEEN Imaging Radiology Impression Abdomen/Pelvis CT 03/26/24 11:05 IMPRESSION: Focal enteritis or early/partial small bowel obstruction of a loop of small bowel in the pelvis without evidence of ischemia or perforation. Electronically Signed: Tristian Gonzales MD at 12:49 EDT ,
--- NOTE | 2024-03-26 15:12 | PCM.HP.STD ---
HPI - General General Date of Admission: 03/26/24 Date of Service: 03/26/24 Chief Complaint: Abd pain and vomiting HPI Narrative LLOYD LUDWIG, is a 78F with history of bowel obstruction previously that spontaneous resolved and right hip replacement presented to [facility] ED 03/26/2024 for significant abdominal pain and intractable nausea and vomiting as well as poor p.o. intake. She was found to have small bowel obstruction on CT and surgery contacted who recommended medical admission with surgical consult. Of note ED patient also had UA suspicious for UTI. Hospitalist contacted for admission. Patient seen at bedside, several months ago she did have small bowel obstruction and when she drank contrast for small bowel follow-through her obstruction spontaneous resolved in 2 weeks discharged home. Has had intermittent symptoms for the past month but over the past day she has had severe lower abdominal pain and has had nausea and vomiting since last night and now that nothing is in her stomach she has been having dry heaving. Does feel slightly better with medications in ED. Has been somewhat itchy from a combination of poison vidal and recently taking something with red dye, urinates often, last bowel movement this morning with liquid and chunks and reports this is somewhat unusual for her given the consistency and amount. Denies any other focal complaints. [facility] Medical History (Updated 03/26/24 @ 15:[address] Lilian Pena MD) Ambulates with cane Anemia Arthritis Back pain Bladder disease Cardiology follow-up encounter Depression Former smoker History of echocardiogram History of edema History of irregular heartbeat History of pain when walking History of steroid therapy History of stress test Injury of head and neck Non-smoker Osteoporosis Polymyalgia rheumatica Shortness of breath on exertion Syncope TIA (transient ischemic attack) Walker as ambulation aid Wears dentures Wears glasses Home Medications ?Medication ?Instructions ?Recorded ?Last Taken ?Type Plexus 2 - 4 cap PO/SL DAILY stomach 03/25/21 Unknown History multivitamin 1 tab PO DAILY supplement 08/30/22 Unknown History docusate sodium 100 mg tablet 100 mg PO DAILY 03/26/24 03/26/24 History Allergy/AdvReac Type Severity Reaction Status Date / Time red dye Allergy Itching Verified 03/26/24 10:47 Sulfa (Sulfonamide Allergy unsure Verified 03/26/24 10:47 Antibiotics) monosodium glutamate AdvReac Vomiting Verified 03/26/24 10:47 Surgical History Hx laparoscopic cholecystectomy Hx of colonoscopy Hx of hernia repair Hx of surgical procedure Status post total hip replacement, right Social History Smoking Status: Never smoker ROS ROS Narrative General: Denies fever/chills, does always take home HENT: Denies headache, denies stuffy nose, denies sore throat EYES: Denies changes in vision Resp: Denies cough, denies shortness of breath Cardiac: Denies chest pain GI: Lower abdominal pain, bowel movement this a.m. somewhat watery, nausea and vomiting : Has some possible urinary frequency Extremity: Denies swelling MSK: Denies weakness Neuro: Denies any numbness/tingling Heme: Denies any bleeding or bruising Skin: Has some itching on her back Psychiatric: No complaints voiced Vital Signs Vital Signs Vital Signs: 03/26/24 10:47 03/26/24 12:46 03/26/24 14:00 Temperature 97.6 F L Temperature Source Temporal Pulse Rate 90 90 83 Respiratory Rate 18 18 16 Blood Pressure 134/71 H 138/68 H 151/76 H Blood Pressure Mean 92 91 101 Pulse Ox 97 99 95 Oxygen Delivery Method Room Air Room Air Physical Exam Narrative General: Alert, oriented, no apparent distress HEENT: Atraumatic, normocephalic Eyes: Anicteric, normal conjunctiva, extraocular movements grossly intact Neck: Supple Respiratory: Clear to auscultation bilaterally, normal respiratory effort Cardiovascular: Regular rate and rhythm GI: Hypoactive bowel sounds, tender with no rebound, guarding, rigidity Extremities: No edema Musculoskeletal: Moving all extremities Neuro: No overt focal neurological deficits Skin: Excoriations on back Psych: Cooperative Results Lab / Micro Data 03/26/24 11:25 03/26/24 11:25 Labs: Laboratory Results - last 24 hr 03/26/24 11:25: WBC 5.7, RBC 4.61, Hgb 11.6 L, Hct 37.4, MCV 81.1, MCH 25.2 L, MCHC 31.0 L, RDW Std Deviation 47.8 H, RDW Coeff of Honorio 16.3 H, Plt Count 321, MPV 8.8, Immature Gran % (Auto) 0.200, Neut % (Auto) 62.3, Lymph % (Auto) 25.8, [place] % (Auto) 7.7, Eos % (Auto) 3.5, Baso % (Auto) 0.5, Absolute Neuts (auto) 3.5, Absolute Lymphs (auto) 1.47, Nucleated RBC % 0, Sodium 140, Potassium 3.2 L, Chloride 104, Carbon Dioxide 29.0, Anion Gap 7, BUN 13, Creatinine 0.77, Est GFR (MDRD) Af Amer 93, Est GFR (MDRD) Non-Af 77, BUN/Creatinine Ratio 16.8, Glucose 106, Lactic Acid 1.3, Calcium 9.1, Lipase 29 03/26/24 11:53: Urine Color Yellow, Urine Clarity Sl. Cloudy, Urine pH 5.0, Ur Specific [place] 1.020, Urine Protein 30 H, Urine Glucose (UA) Normal, Urine Ketones 5 H, Urine Occult Blood 250 H, Urine Nitrite Positive H, Urine Bilirubin 1 H, Urine Urobilinogen 1 H, Ur Leukocyte Esterase 500 H, Urine RBC 0-5 SEEN, Urine WBC 10-25 SEEN, Ur Squamous Epith Cells 0-5 SEEN, Urine Bacteria 1+, Urine Mucus 0 SEEN Imaging Radiology Impression Abdomen/Pelvis CT 03/26/24 11:05 IMPRESSION: Focal enteritis or early/partial small bowel obstruction of a loop of small bowel in the pelvis without evidence of ischemia or perforation. Electronically Signed: Tristian Gonzales MD at 12:49 EDT Reading Location ID and State: [address] [place] [address] Tel , Service support , Assessment & Plan Assessment/Plan (1) Small bowel obstruction: (2) Abnormal urinalysis: PLAN: Plan #Small bowel obstruction -Surgery following -Plan is for surgery Sunday -Advised to keep patient n.p.o. and start IV fluids -Will provide pain and nausea control -Per surgery needs NG if patient develops further nausea #Abn UA -Patient with UA suggestive of UTI -Has had some urinary frequency -Given dose of Rocephin in ED -Will continue Rocephin pending culture # Hypokalemia -Will replace #DVT ppx: Lovenox subcu Lilian Pena MD Charges/Coding Visit Charges Inpatient E&M: 46370 Init Hosp L1
[2024-03-26 15:30] VITALS: BP 156/79; PULSE 77; RESP 15; TEMP 36.7; O2SAT 95
[2024-03-26 15:31] VITALS: BP 151/76; PULSE 83; RESP 16; TEMP 36.4; O2SAT 95
[2024-03-26 15:36] VITALS: BMI 24.3
[2024-03-26] MEDS: 0.9% Normal Saline (1000mL) 1,000 ML 75 ML IV (16:14)
[2024-03-26] MEDS: 0.9% Saline Lock 10 ML Syringe IV ×2 (16:26→18:34)
[2024-03-26] MEDS: Potassium Chloride 10mEq/100mL 10 MEQ/100 ML IV.SOLN. 100 MEQ IV BOLUS ×2 (16:26→18:09)
[2024-03-26] MEDS: 0.9% Normal Saline (250mL Bag) 250 ML 15 ML IV (16:26)
[2024-03-26 21:48] VITALS: BP 124/67; PULSE 92; RESP 16; TEMP 36.7; O2SAT 94
[2024-03-27] MEDS: 0.9% Normal Saline (1000mL) 1,000 ML 75 ML IV ×2 (05:35→17:06)
[2024-03-27 05:38] VITALS: BP 127/58; PULSE 82; RESP 16; TEMP 36.4; O2SAT 96
[2024-03-27] MEDS: Ketorolac 15 MG/ML Vial IV (05:47)
--- NOTE | 2024-03-27 06:52 | PN.HOSP_ITS ---
Reason for Visit Reason for Visit: Abdominal pain and vomiting Subjective Subjective Mrs. Rendon is a 78-year-old white female who presented to the emergency department at [facility] on 03/26/2024 with significant abdominal pain, intractable nausea and vomiting and poor p.o. intake. She had a previous hospitalization at the end of January at which time she had small bowel obstruction that resolved without any surgical intervention. Since discharge she did having ongoing intermittent symptoms but nothing persistent. Over the 24 hours prior to admission she was having severe lower abdominal pain, nausea and vomiting and dry heaving. Vital signs demonstrated temperature of 97.6, heart rate 90, respiratory rate was 18, blood pressure was 134/71, and pulse ox was 97% on room air. CBC was overtly unremarkable other than a mild stable anemia. Chemistry panel showed mild hypokalemia with a potassium of 3.2 but was otherwise unremarkable. Lactic acid was 1.3 and lipase was normal. UA was suggestive of infection as well with positive leuk esterase, nitrate, white cells and 1+ bacteria. Urine culture was sent and antibiotics were started. CT of the abdomen pelvis showed focal enteritis and early partial small bowel obstruction with a loop of small bowel in the pelvis and no evidence of ischemia or perforation. She was seen by general surgery in the emergency department and given this is an ongoing issue he felt an ex lap would be appropriate. Patient states she had 1 episode of flatus. Still with nausea but complains that her mouth is markedly diet. Begging for something to eat and drink. We discussed the reason why she cannot have anything to eat or drink she voiced understanding however she is frustrated. Acknowledges that the plan is for surgery tomorrow. Objective Data Objective Data Vital Signs: Vital Signs Temp Pulse Resp BP Pulse Ox O2 Del Method 97.6 F L 82 16 127/58 H 96 Room Air 03/27/24 05:38 03/27/24 05:38 03/27/24 05:38 03/27/24 05:38 03/27/24 05:38 03/27/24 05:38 Oxygen Delivery Method Room Air Weight: 64.467 kg Body Mass Index (BMI) 24.3 Intake & Output: Intake and Output for Last 24 Hours 03/25/24 03/26/24 03/27/24 23:59 23:59 23:59 Intake Total 1250.25 / 1250.25 1000 / 1000 Balance 1250.25 / 1250.25 1000 / 1000 Lab / Micro Data 03/27/24 06:11 03/27/24 06:11 Labs: Laboratory Results - last 24 hr 03/26/24 11:25: WBC 5.7, RBC 4.61, Hgb 11.6 L, Hct 37.4, MCV 81.1, MCH 25.2 L, M CHC 31.0 L, RDW Std Deviation 47.8 H, RDW Coeff of Honorio 16.3 H, Plt Count 321, MPV 8.8, Immature Gran % (Auto) 0.200, Neut % (Auto) 62.3, Lymph % (Auto) 25.8, [place] % (Auto) 7.7, Eos % (Auto) 3.5, Baso % (Auto) 0.5, Absolute Neuts (auto) 3.5, Absolute Lymphs (auto) 1.47, Nucleated RBC % 0, Sodium 140, Potassium 3.2 L , Chloride 104, Carbon Dioxide 29.0, Anion Gap 7, BUN 13, Creatinine 0.77, Est GFR (MDRD) Af Amer 93, Est GFR (MDRD) Non-Af 77, BUN/Creatinine Ratio 16.8, Glucose 106, Lactic Acid 1.3, Calcium 9.1, Lipase 29 03/26/24 11:53: Urine Color Yellow, Urine Clarity Sl. Cloudy, Urine pH 5.0, Ur Specific [place] 1.020, Urine Protein 30 H, Urine Glucose (UA) Normal, Urine Ketones 5 H, Urine Occult Blood 250 H, Urine Nitrite Positive H, Urine Bilirubin 1 H, Urine Urobilinogen 1 H, Ur Leukocyte Esterase 500 H, Urine RBC 0-5 SEEN, Urine WBC 10-25 SEEN, Ur Squamous Epith Cells 0-5 SEEN, Urine Bacteria 1+, Urine Mucus 0 SEEN Radiography Diagnostic Testing: Radiology Impression Abdomen/Pelvis CT 03/26/24 11:05 IMPRESSION: Focal enteritis or early/partial small bowel obstruction of a loop of small bowel in the pelvis without evidence of ischemia or perforation. Electronically Signed: Tristian Gonzales MD at 12:49 EDT , Physical Exam Const alert, oriented x3, no apparent distress, average body habitus, healthy appearing and well nourished Constitutional Narrative: Pleasant, elderly, white female, sitting up in bed, appears comfortable and nontoxic HEENT head/scalp atraumatic and moist oral mucous membranes HEENT Narrative: Mallampati 2, no thrush Head and Scalp: normocephalic Resp normal respiratory effort, no retractions, no use of accessory muscles and clear to auscultation bilaterally Auscultation: Negative for rales, rhonchi or wheezes Cardio regular rate, regular rhythm, S1 normal heart sound, S2 normal heart sound, no rub, no gallops and no clicks; Negative for no murmurs Cardio Narrative: 2 out of 6 systolic murmur loudest at right upper sternal border GI GI Narrative: Abdomen is slightly distended, bowel sounds are hypoactive but abdomen is soft, no organomegaly was noted Extremity no clubbing, cyanosis or edema Extremity Narrative: Pedal pulses are 2+ Neuro oriented x3, moves all extremities and no focal motor deficits Speech: speech normal Psych affect normal Psych Narrative: Extremely pleasant, interacts appropriately, eye contact is good Assessment & Plan Assessment/Plan (1) Bowel obstruction: (2) Abnormal urinalysis: (3) UTI (urinary tract infection): (4) Hypokalemia: PLAN: Plan Small bowel obstruction -Has been an ongoing issue intermittently with recent admission -Surgery is following with plans for OR 03/28/2024 -Continue n.p.o. 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 labs pending -Continue to follow History of osteoporosis -Restart multivitamin when p.o. intake is applicable DVT prophylaxis -Continue subcu Lovenox CODE STATUS Full code Charges/Coding Visit Charges Inpatient E&M: 73884 Subs Hosp L2
[2024-03-27 07:18] LABS: Absolute Lymphocyte Count 1.74 X10^3/uL (0.83-4.51); Absolute Neutrophil Count 3.1 X10^3/uL (2.0-7.7); Basophil# 0.03 X10^3/uL; Basophil% 0.5 % (0-1); Eosinophil# 0.29 X10^3/uL; Eosinophils% 5.2 % (0-5); Hematocrit 33.8 % (37-47); Hemoglobin 10.5 g/dL (12.0-15.0); Lymphocyte # 1.74 X10^3/ul (0.83-4.51); Lymphocyte % 31.4 % (19-41); Mean Corp Hgb Conc 31.1 g/dL (32-36); Mean Corpuscular Hgb 25.4 pg (27.0-32.0); Mean Corpuscular Volume 81.8 fL (81-99); Mean Platelet Vol. 8.8 fl (6.2-12.0); Monocyte# 0.38 X10^3/uL; Monocyte% 6.8 % (0-10); NRBC Flagged by Analyzer 0 % (0-5); Neutrophil % 55.9 % (47-70); Platelet Count 301 K/mm3 (150-450); RBC Distribution Width CV 16.4 % (11.6-14.6); RBC Distribution Width SD 49.3 fl (35.1-43.9); Red Blood Count 4.13 M/mm3 (4.2-5.4); White Blood Count 5.6 K/mm3 (4.4-11.0)
--- NOTE | 2024-03-27 07:37 | PN.SURG_ITS ---
Subjective Subjective Patient still having abdominal pain denies any flatus or bowel movement. Objective Data Objective Data Vital Signs: Vital Signs Temp Pulse Resp BP Pulse Ox O2 Del Method 97.6 F L 82 16 127/58 H 96 Room Air 03/27/24 05:38 03/27/24 05:38 03/27/24 05:38 03/27/24 05:38 03/27/24 05:38 03/27/24 05:38 Oxygen Delivery Method Room Air Weight: 142 lb 2 oz Body Mass Index (BMI) 24.3 Intake & Output: Intake and Output for Last 24 Hours 03/25/24 03/26/24 03/27/24 23:59 23:59 23:59 Intake Total 1250.25 / 1250.25 1000 / 1000 Balance 1250.25 / 1250.25 1000 / 1000 Lab / Micro Data 03/27/24 06:11 03/27/24 06:11 Labs: Laboratory Results - last 24 hr 03/26/24 11:25: WBC 5.7, RBC 4.61, Hgb 11.6 L, Hct 37.4, MCV 81.1, MCH 25.2 L, M CHC 31.0 L, RDW Std Deviation 47.8 H, RDW Coeff of Honorio 16.3 H, Plt Count 321, MPV 8.8, Immature Gran % (Auto) 0.200, Neut % (Auto) 62.3, Lymph % (Auto) 25.8, [place] % (Auto) 7.7, Eos % (Auto) 3.5, Baso % (Auto) 0.5, Absolute Neuts (auto) 3.5, Absolute Lymphs (auto) 1.47, Nucleated RBC % 0, Sodium 140, Potassium 3.2 L , Chloride 104, Carbon Dioxide 29.0, Anion Gap 7, BUN 13, Creatinine 0.77, Est GFR (MDRD) Af Amer 93, Est GFR (MDRD) Non-Af 77, BUN/Creatinine Ratio 16.8, Glucose 106, Lactic Acid 1.3, Calcium 9.1, Lipase 29 03/26/24 11:53: Urine Color Yellow, Urine Clarity Sl. Cloudy, Urine pH 5.0, Ur Specific [place] 1.020, Urine Protein 30 H, Urine Glucose (UA) Normal, Urine Ketones 5 H, Urine Occult Blood 250 H, Urine Nitrite Positive H, Urine Bilirubin 1 H, Urine Urobilinogen 1 H, Ur Leukocyte Esterase 500 H, Urine RBC 0-5 SEEN, Urine WBC 10-25 SEEN, Ur Squamous Epith Cells 0-5 SEEN, Urine Bacteria 1+, Urine Mucus 0 SEEN 03/27/24 06:11: WBC 5.6, RBC 4.13 L, Hgb 10.5 L, Hct 33.8 L, MCV 81.8, MCH 25.4 L, MCHC 31.1 L, RDW Std Deviation 49.3 H, RDW Coeff of Honorio 16.4 H, Plt Count 301, MPV 8.8, Immature Gran % (Auto) 0.200, Neut % (Auto) 55.9, Lymph % (Auto) 31.4, [place] % (Auto) 6.8, Eos % (Auto) 5.2 H, Baso % (Auto) 0.5, Absolute Neuts (auto) 3.1, Absolute Lymphs (auto) 1.74, Nucleated RBC % 0 Radiography Diagnostic Testing: Radiology Impression Abdomen/Pelvis CT 03/26/24 11:05 IMPRESSION: Focal enteritis or early/partial small bowel obstruction of a loop of small bowel in the pelvis without evidence of ischemia or perforation. Electronically Signed: Tristian Gonzales MD at 12:49 EDT Reading Location ID and State: [facility] Tel , Service support , Physical Exam Const alert and oriented x3 Resp normal respiratory effort Cardio Rate: regular rate Rhythm: regular rhythm GI soft to palpation Inspection: abdominal distention Palpation: tender other (More in the lower abdomen no peritoneal signs) Assessment & Plan Assessment/Plan (1) Small bowel obstruction: PLAN: Will keep patient n.p.o. except for ice chips and meds, continue IV fluids. Will plan for surgery with Dr. Cole tomorrow. Patient no further questions at this time. Alayna Nevarez M.D. Pager: [phone] [facility] [address] [place] [address], Outpatient [facility], [address] [place] [address] Office: [phone] Charges/Coding Visit Charges Inpatient E&M: 74019 Subs Hosp L2
[2024-03-27 08:02] LABS: ALB/GLOB Ratio 0.9 RATIO (0.9-2.4); AST(SGOT) 16 U/L (15-37); Alanine Aminotransfer ALT/SGPT 15 U/L (13-56); Albumin, Serum 2.8 g/dL (3.2-5.0); Alkaline Phosphatase 67 U/L (45-117); Anion Gap 6 (5-15); BUN 9 mg/dL (7-18); BUN/Creat Ratio 17.1 RATIO (10-20); Calcium,Total 8.4 mg/dL (8.5-10.1); Chloride 110 mmol/L (98-107); Creatinine, Serum 0.53 mg/dL (0.55-1.02); EST Glomerular Filtration Rate 120 mL/min (>60); Est Glom Filt Rate - Afr Amer 145 mL/min (>60); Estimated Creatinine Clearance 50.85 ml/min; Glucose 82 mg/dL (74-106); Magnesium 1.9 mg/dL (1.6-2.6); Potassium 3.5 mmol/L (3.5-5.1); Protein, Total 5.8 g/dL (6.4-8.2); Sodium Level 142 mmol/L (136-145)
[2024-03-27 09:17] VITALS: BP 122/67; PULSE 88; RESP 16; TEMP 36.7; O2SAT 94
[2024-03-27] MEDS: Ceftriaxone 1 GM/50 ML BAG IV (09:29)
[2024-03-27] MEDS: Enoxaparin 40 MG/0.4 ML Syringe SC (09:30)
[2024-03-27 14:20] VITALS: BP 136/66; PULSE 87; RESP 16; TEMP 36.6; O2SAT 98
[2024-03-27] MEDS: BENZOCAINE/MENTHOL 1 LOZENGE MUCOUS MEM ×2 (17:06→19:52)
[2024-03-27 19:55] VITALS: BP 133/63; PULSE 91; RESP 18; TEMP 36.7; O2SAT 94
[2024-03-28] VITALS (18 sets, daily range): BP systolic 108–192; BP diastolic 51–87; PULSE 80–95; RESP 14–18; TEMP 36.4–37.4; O2SAT 6–100; BMI 24.3
--- NOTE | 2024-03-28 | IMM_PTH ---
PATIENT: LLOYD LUDWIG LOC: MS3 U#:[id number] AGE/SX: 78/F ROOM: [facility] RE03/26/[address]: Dr. Alana Ochoa DO : 1945 BED: 1 DIS: 03/30/2024 SPEC #: [id number] RECD: 04/02/24 12:38 STATUS: SOUT REQ #: [id number] KIMBERLY: 03/28/24 00:[address]: Angel Cole DEPT: IMMUNOHISTOCHEMISTRY RECD BY: Benjamin Quintana ENTERED: 04/02/24 12:39 SP TYPE: IMMUNO OTHR DR: MD Dr. Eva Kingston DO Dr. Kathryn Lee, DO Dr. Paige Pierce, MD Tissues: Colon, NOS Procedures: Synapto (add) CD31 (add) CD56 (add) CHROMO (add) CK20 (add) CK7 (add) CK8 (add) KI-67 (add) FACTOR VIII (add) Pankeratin (initial) MOC-31 (add) Comments: @ Ordering doctor for SYN. edited from to @ by IZABEL at 04/02/24 1240 @ Ordering doctor for CD31. edited from to @ by IZABEL at 04/02/24 1240 @ Ordering doctor for CD56. edited from to @ by IZABEL at 04/02/24 1240 @ Ordering doctor for CHROMO. edited from to @ by IZABEL at 04/02/24 1240 @ Ordering doctor for CK20. edited from to @ by IZABEL at 04/02/24 1240 @ Ordering doctor for CK7. edited from to @ by IZABEL at 04/02/24 1240 @ Ordering doctor for CK8. edited from to @ by IZABEL at 04/02/24 1240 @ Ordering doctor for KI67. edited from to @ by IZABEL at 04/02/24 1240 @ Ordering doctor for FACTOR VIII. edited from to @ by IZABEL at 04/02/24 1240 @ Ordering doctor for PANK edited from to @ by IZABEL at 04/02/24 1240 @ Ordering doctor for MOC31 edited from to @ by IZABEL at 04/02/24 1240 @ Submitting doctor edited from to @ by IZABEL at 04/02/24 1240 PHYSICIAN & [place] [id number] SPECIMEN INFORMATION: Tissue Source: Small bowel segment Clinical Info: Small bowel resection, small bowel obstruction, small bowel mass Specimen Number: [id number] CPT code: 27060,[id number] METHODOLOGY: Deparaffinized sections of prefer/formalin-fixed tissue or PAP/DQ stained slides are incubated with monoclonal/polyclonal antibodies/oligonucleotide probes. Localization is made via biotin free immunoperoxidase method. Appropriate controls are performed and reacted as expected. Results on target cell population are indicated in the following table: RESULTS: ANTIBODY / CLONE RESULT Block 4 AE1-3 (AE1/AE3/PCK26) positive CK7 (OV-TL12/30) negative CK8 (69xcamS25) positive CK20 (KS20.8) negative MOC-31 (4561) positive CD56 (123C3.D5) positive Chromo (LK2H10) positive Synapto (polyclonal) positive Ki-67 (30-9) positive, 5% Block 7 CD31 (SHELLI/70A) positive Factor VIII (R Ag) positive Block 13 CD31 (SHELLI/70A) positive Factor VIII (R Ag) positive These tests were developed and their performance characteristics determined by [facility]. They may not have been cleared or approved by the U.S. Food and Drug Administration. The FDA has determined that such clearance or approval is not necessary. The above immunohistochemical/dualISH markers are ordered and reviewed by the Pathologist. 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 HILARIO/ 04/03/2024
[2024-03-28] MEDS: BENZOCAINE/MENTHOL 1 LOZENGE MUCOUS MEM ×3 (03:43→23:21)
--- NOTE | 2024-03-28 05:00 | EKG12_ITS ---
Test Reason : AM EKG Blood Pressure : / mmHG Vent. Rate : 093 BPM Atrial Rate : 093 BPM P-R Int : 220 ms QRS Dur : 094 ms QT Int : 380 ms P-R-T Axes : 066 -10 001 degrees QTc Int : 472 ms Sinus rhythm with 1st degree A-V block Septal infarct , age undetermined Abnormal ECG No previous ECGs available Confirmed by GOPAL GAMBOA, ANDREY ([id number]), continuity editor JAYY ALONSO ([id number]) on 03/31/2024 10:31:05 AM Referred By: NATE Confirmed By:ANDREY HERRON MD
[2024-03-28] MEDS: 0.9% Normal Saline (1000mL) 1,000 ML 75 ML IV ×2 (06:14→16:42)
[2024-03-28 06:38] LABS: International Normalized Ratio 1.1; Prothrombin Time (Protime)PT. 13.7 SECONDS (11.7-14.9)
[2024-03-28 06:39] LABS: Partial Thromboplast Time 36.8 Seconds (24.1-36.2)
[2024-03-28 06:49] LABS: Hematocrit 40.4 % (37-47); Hemoglobin 11.7 g/dL (12.0-15.0); Mean Corpuscular Hgb 25.8 pg (27.0-32.0); Mean Corpuscular Volume 89.2 fL (81-99); Mean Platelet Vol. 9.1 fl (6.2-12.0); Platelet Count 220 K/mm3 (150-450); RBC Distribution Width CV 16.5 % (11.6-14.6); Red Blood Count 4.53 M/mm3 (4.2-5.4); White Blood Count 4.1 K/mm3 (4.4-11.0)
--- NOTE | 2024-03-28 09:39 | CASEMGMT ---
PARUL TIRADO Assessment Face to Face with patient for initial transition planning/care coordination assessment. PARUL TIRADO introduced self and role at [facility], pt voices understanding. Pt is A&Ox4 and is resting comfortably in bed and is calm. Care providers, pharmacy, and demographics verified. Admitting dx: SBO BALDEMAR Strata: 2 PCP: Eva Grant Specialists: Lenore (Ortho), Azeb (GI) Preferred Pharmacy: [facility] Insurance: BOOK A TIGER Prescription Benefit: Yes LNOK: Ag Rendon (H) Living Arrangements: Pt lives with her , GD, GD's and her GD's 6 children in a single story home with a ramp to enter ADLs/IADLs: Pt states that she is independent and that she still works Transportation: Self, , Family DME: FWW, Cane, Rollator x2, Lift chair, shower chair. HHC/SNF: Denies history or needs. Pt states that she has a Hx of OP therapy at [facility] Pt?s goal: Home Plan: Pt is scheduled for Sx today at 1400. Current 6-Click score is 24. Pt denies needs at home. Pt states that she feels safe returning home at time of discharge without any additional needs. Pt states that she does not require HHC or OP therapy at this time. Pt states that she has plenty of family support at home. CM to follow. Landy Gunter RN, CM
[2024-03-28 10:23] LABS: Anion Gap 14 (5-15); BUN 12 mg/dL (7-18); BUN/Creat Ratio 20.8 RATIO (10-20); Calcium,Total 8.9 mg/dL (8.5-10.1); Chloride 108 mmol/L (98-107); Creatinine, Serum 0.58 mg/dL (0.55-1.02); EST Glomerular Filtration Rate 108 mL/min (>60); Est Glom Filt Rate - Afr Amer 130 mL/min (>60); Estimated Creatinine Clearance 50.85 ml/min; Glucose 56 mg/dL (74-106); Potassium 3.4 mmol/L (3.5-5.1); Sodium Level 140 mmol/L (136-145)
[2024-03-28] MEDS: Ceftriaxone 1 GM/50 ML BAG IV (10:24)
--- NOTE | 2024-03-28 10:39 | PCM.PN.SRG ---
Subjective Subjective Patient reported intermittent pain yesterday. No nausea or vomiting. She is passing gas but no bowel movement. Objective Data Objective Data Vital Signs: Vital Signs Temp Pulse Resp BP Pulse Ox O2 Del Method 99.3 F H 90 16 108/56 L 94 Room Air 03/28/24 08:00 03/28/24 08:00 03/28/24 08:00 03/28/24 08:00 03/28/24 08:00 03/28/24 08:00 Oxygen Delivery Method Room Air Weight: 142 lb 2 oz Body Mass Index (BMI) 24.3 Intake & Output: Intake and Output for Last 24 Hours 03/26/24 03/27/24 03/28/24 23:59 23:59 23:59 Intake Total 1250.25 / 1250.25 1913.75 / 1913.75 985 / 985 Balance 1250.25 / 1250.25 191.75 / 1912.75 985 / 985 Lab / Micro Data 03/28/24 05:03 03/28/24 08:00 Labs: Laboratory Results - last 24 hr 03/28/24 05:03: WBC 4.1 L, RBC 4.53, Hgb 11.7 L, Hct 40.4, MCV 89.2 D, MCH 25.8 L, MCHC 29.0 L D, RDW Std Deviation 54.0 H, RDW Coeff of Honorio 16.5 H, Plt Count 220, MPV 9.1, PT 13.7, INR 1.1, APTT 36.8 H, Sodium Cancelled, Potassium Cancelled, Chloride Cancelled, Carbon Dioxide Cancelled, Anion Gap Cancelled, BUN Cancelled, Creatinine Cancelled, Estim Creat Clear Calc Cancelled, Est GFR (MDRD) Af Amer Cancelled, Est GFR (MDRD) Non-Af Cancelled, BUN/Creatinine Ratio Cancelled, Glucose Cancelled, Calcium Cancelled 03/28/24 08:00: Sodium 140, Potassium 3.4 L, Chloride 108 H, Carbon Dioxide 18.0 L, Anion Gap 14, BUN 12, Creatinine 0.58, Estim Creat Clear Calc 50.85, Est GFR (MDRD) Af Amer 130, Est GFR (MDRD) Non-Af 108, BUN/Creatinine Ratio 20.8 H, Glucose 56 L, Calcium 8.9 Micro: Microbiology 03/26/24 12:45 Urine, Clean Catch Urine Culture - Final Escherichia coli Physical Exam Const oriented x3 and no apparent distress Resp normal respiratory effort GI soft to palpation Inspection: Negative for abdominal distention Palpation: Negative for tender Assessment & Plan Assessment/Plan (1) Partial small bowel obstruction: PLAN: The patient has a partial small bowel obstruction. She was here about a month ago and passed a small bowel follow-through but started having nausea vomiting and pain at home. After reviewing the CAT scan it appears to be the same loop of bowel which is overlying the bladder and adherent to the right lower quadrant. I believe she will likely have issues until she has surgery for this. I discussed exploratory laparoscopy with her 2 days ago. I discussed the risks including but not limited to bleeding, infection, injury to other organs, need for conversion to open surgery or bowel resection. Patient understands all the risks and is willing to proceed. Patient also has a UTI and she was started on ceftriaxone. Angel Cole MD Pager: [facility] [address] [place] [address] [address] [place] [address] Office:
--- NOTE | 2024-03-28 10:43 | PCM.PN.HOSP ---
Reason for Visit Reason for Visit: Abdominal pain/nausea and vomiting Subjective Subjective Still with intermittent nausea and vomiting. Did pass some flatus through the night. Objective Data Objective Data Vital Signs: Vital Signs Temp Pulse Resp BP Pulse Ox O2 Del Method 99.3 F H 90 16 108/56 L 94 Room Air 03/28/24 08:00 03/28/24 08:00 03/28/24 08:00 03/28/24 08:00 03/28/24 08:00 03/28/24 08:00 Oxygen Delivery Method Room Air Weight: 64.467 kg Body Mass Index (BMI) 24.3 Intake & Output: Intake and Output for Last 24 Hours 03/26/24 03/27/24 03/28/24 23:59 23:59 23:59 Intake Total 1250.25 / 1250.25 1913.75 / 1913.75 985 / 985 Balance 1250.25 / 1250.25 1913.75 / 1913.75 985 / 985 Lab / Micro Data 03/28/24 05:03 03/28/24 08:00 Labs: Laboratory Results - last 24 hr 03/28/24 05:03: WBC 4.1 L, RBC 4.53, Hgb 11.7 L, Hct 40.4, MCV 89.2 D, MCH 25.8 L, MCHC 29.0 L D, RDW Std Deviation 54.0 H, RDW Coeff of Honorio 16.5 H, Plt Count 220, MPV 9.1, PT 13.7, INR 1.1, APTT 36.8 H, Sodium Cancelled, Potassium Cancelled, Chloride Cancelled, Carbon Dioxide Cancelled, Anion Gap Cancelled, BUN Cancelled, Creatinine Cancelled, Estim Creat Clear Calc Cancelled, Est GFR (MDRD) Af Amer Cancelled, Est GFR (MDRD) Non-Af Cancelled, BUN/Creatinine Ratio Cancelled, Glucose Cancelled, Calcium Cancelled 03/28/24 08:00: Sodium 140, Potassium 3.4 L, Chloride 108 H, Carbon Dioxide 18.0 L, Anion Gap 14, BUN 12, Creatinine 0.58, Estim Creat Clear Calc 50.85, Est GFR (MDRD) Af Amer 130, Est GFR (MDRD) Non-Af 108, BUN/Creatinine Ratio 20.8 H, Glucose 56 L, Calcium 8.9 Micro: Microbiology 03/26/24 12:45 Urine, Clean Catch Urine Culture - Final Escherichia coli Physical Exam Const alert, oriented x3, no apparent distress, average body habitus, healthy appearing and well nourished Constitutional Narrative: Pleasant, elderly, white female, sitting up in bed, appears comfortable and nontoxic HEENT head/scalp atraumatic and moist oral mucous membranes HEENT Narrative: Mallampati 2, no thrush Head and Scalp: normocephalic Resp normal respiratory effort, no retractions, no use of accessory muscles and clear to auscultation bilaterally Auscultation: Negative for rales, rhonchi or wheezes Cardio regular rate, regular rhythm, S1 normal heart sound, S2 normal heart sound, no rub, no gallops and no clicks; Negative for no murmurs Cardio Narrative: 2 out of 6 systolic murmur loudest at right upper sternal border GI GI Narrative: Minimal distention, bowel sounds are hypoactive but abdomen is soft Extremity no clubbing, cyanosis or edema Extremity Narrative: Pedal pulses are 2+ Neuro oriented x3, moves all extremities and no focal motor deficits Speech: speech normal Psych affect normal Psych Narrative: Extremely pleasant, interacts appropriately, eye contact is good Assessment & Plan Assessment/Plan (1) Bowel obstruction: (2) Abnormal urinalysis: (3) UTI (urinary tract infection): (4) Hypokalemia: PLAN: Plan Small bowel obstruction -Has been an ongoing issue intermittently with recent admission -Surgery is planned for later this afternoon -Continue n.p.o. but okay for p.o. meds -Continue IV fluids at 75 cc/h -Continue antiemetics -Continue medication for pain -Not requiring an NG at this time E. 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 Anemia -Mild -Within baseline -Continue to monitor especially in the postoperative period Leukopenia Can suspect related to dilution from IV fluids and is only mild -Repeat CBC in a.m. History of osteoporosis -Restart multivitamin when p.o. intake is applicable DVT prophylaxis -Continue subcu Lovenox CODE STATUS Full code Charges/Coding Visit Charges Inpatient E&M: 37217 Subs Hosp L2
--- NOTE | 2024-03-28 11:35 | NURSING ---
checked with anesthesia regarding oral kcl at this time. instructed to hold as k+ 3.4 and 'is ok with'
--- NOTE | 2024-03-28 13:26 | PCM.PRE.AN2 ---
ASA Classification* ASA Classification ASA Classification: 3 Assessment & Plan Anesthesia* Anesthesia Assessment Anesthesia Assessment: Discussed sedation and/or anesthesia options, risks, benefits, and alternatives with patient/parents/legal guardian/POA. Questions invited. The patient/parents/legal guardian/POA seems to understand and agrees to proceed with anesthesia plan. Reviewed the physical assessment, medical history, allergy history and patient home medications list prior to surgery/procedure/anesthetic and documented any changes. Performed airway and anesthesia risk assessments. Anesthesia Type Anesthesia Type: General History Source History Obtained from:: Patient and Chart Anesthesia Focused Assessment* Temperature: 99.3 F Pulse Rate: 90 Blood Pressure: 108/56 Respiratory Rate: 16 Pulse Ox: 94 Oxygen Delivery Method: Room Air Airway Assessment Mouth opens: >3 cm Mallampati Score: IV Teeth Condition: Dentures, Full (Top dentures out.) and Missing (Bottom teeth are mostly missing none loose) Neck Range of motion (ROM): Limited ROM Pertinent Findings EKG Pertinent Findings:: March 28, 2024. Sinus rhythm with first-degree AV block. Septal infarct. ECHO Pertinent Findings:: January 31, 2023. Ejection fraction is 55 to 60%. Pulmonary artery pressure is 42. Other Pertinent Findings:: Cardiac CT performed on March 14, 2023. Patient had a 0 score for coronary artery disease. Focused Labs Anesthesia Preop lab: CBC WBC 4.1 K/mm3 (4.4-11.0) L 03/28/24 05:03 RBC 4.53 M/mm3 (4.2-5.4) 03/28/24 05:03 Hgb 11.7 g/dL (12.0-15.0) L 03/28/24 05:03 Hct 40.4 % (37-47) 03/28/24 05:03 Plt Count 220 K/mm3 (150-450) 03/28/24 05:03 CHEMISTRY Potassium 3.4 mmol/L (3.5-5.1) L 03/28/24 08:00 Sodium 140 mmol/L (136-145) 03/28/24 08:00 Magnesium 1.9 mg/dL (1.6-2.6) 03/27/24 06:11 Phosphorus 2.9 mg/dL (2.5-4.9) 02/13/24 07:07 BUN 12 mg/dL (7-18) 03/28/24 08:00 Creatinine 0.58 mg/dL (0.55-1.02) 03/28/24 08:00 Glucose 56 mg/dL (74-106) L 03/28/24 08:00 POC Glucose 91 mg/dL (74-106) 05/10/23 06:20 COAG PT 13.7 SECONDS (11.7-14.9) 03/28/24 05:03 Pre-Assessment Diagnosis/Proposed Procedure Planned Operative Procedure(s): Exploratory laparoscopy. Rule out small bowel obstruction. Possible open. Anesthesia History Anesthesia History - paint trimmer pipe bowls: Anesthesia History - paint trimmer pipe bowls Hx Hospitalization No 04/25/23 14:57 Any Problems With Anesthesia Yes: very slow to wake up 03/28/24 03:33 Cholinesterase deficiency No 03/28/24 03:33 You/Your Family Experience No 03/28/24 03:33 fever (hyperthermia) with Relationship Recent Exposure to Contagious No 03/28/24 03:33 Disease Does patient have nerve No 03/28/24 03:33 stimulator Patient instructed to have No 03/28/24 03:33 device shut off --Does patient have Pacemaker No 03/28/24 13:00 or ICD? When Was Last Pacemaker Check QUESTION #4 FULL TEXT: You/Your Family Experience fever (hyperthermia) with Anesthesia Last Oral Intake Last Oral intake: Last Oral Intake NPO since 00:00 03/28/24 13:00 Meds taken in AM with sips of No 03/28/24 13:00 water? Meds patient instructed to take am of surgery PONV PONV - paint trimmer pipe bowls: PONV - paint trimmer pipe bowls Female HX of Motion Sickness HX of N/V After Surgery Non-Smoker Duration of Surgery greater than 60 minutes Number of Risk Factors PONV Score Height & Weight Height & Weight: Anesthesia: Height & Weight Height 5 ft 4 in 03/28/24 13:00 Weight: 64.467 kg 03/28/24 13:00 Body Mass Index (BMI) 24.3 03/28/24 13:00 Respiratory Assessment Respiratory Assessment - paint trimmer pipe bowls: Respiratory Tract Infection Hx - paint trimmer pipe bowls Hx Respiratory Tract Infection No 03/28/24 03:33 STOP Sleep Apnea STOP Sleep Apnea - paint trimmer pipe bowls: STOP Sleep Apnea - paint trimmer pipe bowls Hx Hypertension No 03/26/24 15:36 Hx Sleep Apnea No 03/26/24 15:36 CPAP BIPAP Do you snore loudly (louder Yes 03/26/24 15:36 than talking or can be heard Do you often feel tired/ Yes 03/26/24 15:36 fatigued/ sleepy during daytime? Has anyone observed you stop No 03/26/24 15:36 breathing during sleep? STOP Results Positive 03/26/24 15:36 QUESTION #5 FULL TEXT : Do you snore loudly (louder than talking or can be heard through closed doors)? 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 Specify any problems Hx of Preganancy in last 3 N/A 03/26/24 15:36 Months Nurse Filling Out Transfusion SHIRA 03/26/24 15:36 & Questions: Date: 03/26/24 03/26/24 15:36 Time: 16:00 03/26/24 15:36 Patient unable to answer at this time (ie. confused, unrespo /Reproduction History /Reproductive History - paint trimmer pipe bowls: /Reproductive Hx- paint trimmer pipe bowls Hx Now No 03/28/24 03:33 Gestational Age (in weeks): EDC: Hx Hx Para Hx Section SAB No 03/28/24 03:33 Active Medications Active Medications: Current Medications Generic Name Dose Route Start Last Admin Trade Name Freq PRN Reason Stop Dose Admin Albuterol Sulfate 2.5 mg 03/26/24 15:37 Albuterol 2.5 Mg/3 Ml Vial.Neb. INHALATION Q2H PRN PRN SOB &/OR WHEEZING Enoxaparin Sodium 40 mg 03/27/24 10:00 03/28/24 09:00 Enoxaparin 40 Mg/0.4 Ml Syringe SC Not Given DAILY JAMAAL Sodium Chloride 1,000 mls @ 75 mls/hr 03/26/24 15:37 03/28/24 06:14 IV 75 mls/hr .[id number] JAMAAL Administration Ceftriaxone Sodium 1 gm in 50 mls @ 100 mls/hr 03/27/24 10:00 03/28/24 11:12 Rocephin IV Infused Q24 JAMAAL Infusion Sodium Chloride 250 mls @ 15 mls/hr 03/26/24 16:02 03/27/24 19:38 IV Infused .[id number] PRN Infusion Additional IVPB Infusion Sodium Chloride 250 mls @ 15 mls/hr 03/26/24 16:02 IV .[id number] PRN Saline Flush Ketorolac Tromethamine 15 mg 03/26/24 15:37 03/27/24 05:47 Ketorolac 15 Mg/Ml Vial IV 03/31/24 15:37 15 mg Q6H PRN PRN Administration Pain Score 1-10 Melatonin 3 mg 03/26/24 15:37 Melatonin 3 Mg Tablet PO QHS PRN PRN INSOMNIA Morphine Sulfate 2 mg 03/27/24 07:17 Morphine 2 Mg/Ml Syringe IV Q2H PRN PRN Pain Score 4-5 Ondansetron HCl 4 mg 03/26/24 15:37 Ondansetron 4 Mg/2 Ml Vial IV Q8H PRN PRN NAUSEA/VOMITING Senna/Docusate Sodium 2 tablet 03/26/24 15:37 Senna/Docusate Sodium 1 Tablet PO BID PRN PRN Constipation Sodium Chloride 10 - 40 ml 03/26/24 16:02 03/26/24 18:34 0.9% Saline Lock 10 Ml Syringe IV 10 ml UD PRN Administration SALINE FLUSH Throat Lozenges 1 lozenge 03/27/24 16:59 03/28/24 03:43 Benzocaine/Menthol 1 Lozenge MUCOUS MEM 1 lozenge Q2H PRN PRN Administration SORE THROAT PFSH Medical History Dyspnea Scarlet fever GERD (gastroesophageal reflux disease) Polymyalgia rheumatica History of steroid therapy Ambulates with cane History of pain when walking History of stress test Cardiology follow-up encounter History of echocardiogram Depression Osteoporosis Former smoker Wears glasses Wears dentures Walker as ambulation aid Arthritis Bladder disease Anemia Back pain TIA (transient ischemic attack) Injury of head and neck Syncope Non-smoker Shortness of breath on exertion History of edema History of irregular heartbeat Home Medications ?Medication ?Instructions ?Recorded ?Last Taken ?Type Plexus 2 - 4 cap PO/SL DAILY stomach 03/25/21 Unknown History multivitamin 1 tab PO DAILY supplement 08/30/22 Unknown History docusate sodium 100 mg tablet 100 mg PO DAILY 03/26/24 03/26/24 History Allergy/AdvReac Type Severity Reaction Status Date / Time red dye Allergy Itching Verified 03/28/24 13:06 Sulfa (Sulfonamide Allergy unsure Verified 03/28/24 13:06 Antibiotics) monosodium glutamate AdvReac Vomiting Verified 03/28/24 13:06 Surgical History History of cholecystectomy Status post total hip replacement, right Hx of surgical procedure Hx of colonoscopy Hx of hernia repair Hx laparoscopic cholecystectomy Social History Smoking Status: Never smoker Review of Systems (Anesthesia) ROS Narrative System reviewed and no additional complaints, except as documented.
[2024-03-28] MEDS: Bupivacaine Mpf 0.5% 30 ML VIAL (13:45)
--- NOTE | 2024-03-28 14:00 | COL_PTH ---
PATIENT: LLOYD LUDWIG LOC: MS3 U#:[id number] AGE/SX: 78/F [place] [facility] [place]: Dr. Alana Ochoa DO : 1945 BED: 1 DIS: 03/30/2024 SPEC #: [id number] RECD: 03/28/24 16:05 STATUS: GILA TORRES #: [id number] KIMBERLY: 03/28/24 14:[address]: Angel Cole DEPT: SURGICAL PATHOLOGY RECD BY: Maria Del Rosario Baker ENTERED: 03/31/24 07:20 SP TYPE: COLON OTHR DR: MD Dr. Eva Kingston DO Dr. Kathryn Lee, DO Dr. Paige Pierce, MD Tissues: Colon, NOS Procedures: Surgery Specimen Level V Comments: @ Ordering doctor for SUV edited from to @ yna PAIZ at 03/31/24826 @ Submitting doctor edited from to @ nya PAIZ at 03/31/24826 HEADER OPERATION: Exploratory laparoscopy, small bowel resection PRE-OP DIAGNOSIS: Small bowel resection, small bowel obstruction, small bowel mass TISSUE SUBMITTED: Small bowel segment MICROSCOPIC DIAGNOSIS Small bowel, segmental dissection: Invasive well differentiated neuroendocrine tumor. See cancer summary in the comment section. HILARIO/ 04/02/2024 COMMENT JEJUNUM AND ILEUM NEUROENDOCRINE TUMOR CANCER SUMMARY: Procedure: Segmented resection, small intestine Tumor: Tumor site: small intestine: Not specified Histologic type and grade: Grade 1 well differentiated neuroendocrine tumor Mitotic rate: none identified Ki-67 labeling index: 5% Tumor size: Larger tumor- 2.0 x 1.5 x 1.0cm, Smaller tumor- 0.6 x 0.5 x 0.5cm Tumor focality: Multifocal Number of tumors: 2 Tumor extent: Larger tumor invades through the muscularis propria into subserosal adipose tissue without penetration of overlying serosa. Smaller tumor invades superficially into the muscularis propria. Lymphovascular invasion: Present Perineural invasion: Present Mesenteric masses: Present Number of mesenteric masses: 2 Larger mesenteric mass measures 1.1 x 0.6cm Margins: All margins are negative for tumor. The tumor is 9.0cm away from the closest axial resection margin. Regional lymph nodes: Number of lymph node with tumor: 4 Number of lymph nodes examined: 14 The largest focus of metastasis measures 0.6 x 0.4cm. Distant metastasis: Not applicable Additional pathologic findings: None Pathologic stage: pT3 pN1 pMx Immunohistochemistry ([id number]) supports the diagnosis of well differentiated neuroendocrine tumor and lymph-vascular invasion. MICROSCOPIC DESCRIPTION Slides are reviewed. GROSS DESCRIPTION Received in fixative is one container labeled with the patient's name and designated Small bowel segment. The specimen consists of a segment of small bowel measuring 25.0cm in length. Portion of bowel is dilated and measures 3.5cm in diameter and non-dilated portion measures 2.0cm in diameter. Both resection margins are stapled. 9.0cm away from one resection margin is a focal area of stricture with serosal adhesion is noted. Serosal surface in this area inked black. Lumen contains a yellow nodular mass corresponding to the area of stricture measuring 2.0 x 1.5 x 1.0cm. This mass appears to involve full thickness of bowel wall. The lumen in this area is almost completely obstructed. Also present in the container is a second smaller segment of small bowel measuring 2.5cm in length. No mucosal lesion is identified in this segment. Also present in the container is a donut shaped piece of bowel tissue measuring 4.0 x 1.5 x 0.5cm. Also present in the container is a small piece of bowel tissue with multiple manav measuring 1.0 x 1.0 x 0.1cm. Mesenteric tissue is fixed in lymph node revealing solution. More dictation will follow after additional fixation. HILARIO/ 03/31/2024 A second smaller mucosal nodule is also noted about 10.0cm away from the larger nodular mass measuring 0.6 x 0.5 x 0.5cm. it does not appear to be invade the underlying bowel wall. Sections of mesenteric tissue reveal multiple lymph nodes. Largest lymph node measures 1.5cm in greatest dimension. Doping Supervisor sections are submitted as follows: 1- donut shaped piece of tissue and small bowel tissue with multiples staple, 2- smaller segment of bowel, 3- one resection margin, 4-7- larger nodular mass, submitted in entirety, 8- smaller submucosal nodular mass, submitted in entirety, 9- advertising representative sections of small bowel, 10- one serially sectioned lymph node, 11- one serially sectioned lymph node, 12- one bisected lymph node, 13- one bisected lymph node, 14- one bisected lymph node, 15- multiple lymph nodes, 16- multiple lymph nodes, 17- multiple lymph nodes, 18- one lymph node, 19- second resection margin. HILARIO/ 04/01/2024 TC:0 CPT:81757
[2024-03-28] MEDS: Cefotetan 2 GM in 0.9% Normal Saline (100mL MB+) 100 ML IV (14:04)
--- NOTE | 2024-03-28 15:14 | CHAPLAIN ---
Type of Pastoral Visit ___ Initial Visit ___ Follow-up Visit ___ On-call Visit ___ General Patient Visit ___ Spiritual Assessment ___ Family Conference ___ Bereavement ___ Rapid Response ___ Code Blue ___ Other (describe below) Pastoral Care Referral From ___ Patient ___ Family ___ Nurse ___ Physician ___ Board Turner ___ Rubber Trimmer ___ Other (describe below) Sacrament/Intervention ___ Active listening ___ Anointing ___ Voodoo ___ Bereavement ___ Communion ___ Joi exploration ___ ___ Life review ___ Prayer ___ Reconciliation ___ Sacrament of Sick ___ Supportive presence ___ Wedding ___ Other (describe below) Pastoral Comments patient and bed are out of the room; left a calling card
--- NOTE | 2024-03-28 15:51 | OP.PCM_ITS ---
Report of Operation Date of Procedure: 03/28/24 Pre-Operative Diagnosis: Small bowel obstruction Post-Operative Diagnosis: Small bowel obstruction due to small bowel mass Surgery/Procedure Performed:: Exploratory laparoscopy with small bowel resection Type of Anesthesia: General/Regional Specimen's removed: Small bowel segment Estimated Blood Loss (mL): 50 Description of Procedure: Patient was brought back to the operating room and general anesthesia was induced. A Price catheter was then placed. The abdomen was then prepped and draped in usual sterile fashion. A midline incision was made superior to the umbilicus and deepened to the fascia and it was elevated and incised. A port was placed into the abdomen and it was insufflated to [address] aced into the abdomen was inspected. There were no injuries from entry. The patient had adhesions around the umbilicus. A 5 mm port was placed under direct visualization in the suprapubic space as well as the left lower quadrant. Enseal was used to take down the adhesions to the anterior abdominal wall after the bowel was identified. Next the patient was placed in Trendelenburg position and the cecum was identified. The terminal ileum was traced back to the area of obstruction. There appeared to be a firm mass that was causing the obstruction. The bowel was decompressed after the mass and dilated before the mass. The rest of the bowel was run and there were no other adhesions in the abdomen. Next the bowel was grasped with an atraumatic grasper and a lower midline incision was made and deepened to the fascia which was elevated and incised. Wound protector was placed and the bowel was delivered through the wound protector. It appeared to be about a foot and half proximal to the ileocecal valve. It appeared to be a mass and there were enlarged lymph nodes in the mesenteric vessels reaching down toward the mesentery. The pedicle that had all the surrounding enlarged lymph nodes was isolated. Next the small bowel was divided at least 10 cm proximal and distal to the mass with ALVIN staplers. Enseal was used to take down the mesentery in a wedgelike fashion until the enlarged lymph nodes were encountered. The vessels were encountered and there was some bleeding from the small bowel artery but it was clamped then a locking clip was used to clip off the vessel and there was good hemostasis. The specimen was sent for pathology. Next the corner of each staple line was removed sharply and the stapler was used to create a [id number] functional end to end anastomosis. Next the enterostomy was inspected and the staple line appeared hemostatic. Using a TX 60 stapler the enterostomy was closed. A 3-0 silk suture was used as a crotch suture. 3-0 silk sutures were also used to maintain hemostasis of the staple line. The mesenteric defect was then closed with a running 3-0 Vicryl suture. The bowel appeared healthy and functional and was returned to the abdom en. The abdomen was then irrigated and suctioned dry and the wound protector was removed. The upper midline incision was closed with a [id number] 0 Vicryl suture. The lower midline fascia was closed with a running #1 PDS suture. The subcutaneous tissue was irrigated and suctioned dry and local anesthetic was injected. Interrupted 4-0 Monocryl sutures were used to close all the skin incisions. Steri-Strips and bandages were applied. Patient was awoken and Price was removed and taken to PACU in stable condition. Admit VTE Documentation VTE Mechan Device Prophylaxis: SCD's
--- NOTE | 2024-03-28 15:56 | PCM.POST.ANE ---
Anesthesia: Postop Eval I Current Vital Signs Temperature: 97.8 F Pulse Rate: 80 Blood Pressure: 185/78 Respiratory Rate: 14 Pulse Ox: 100 Oxygen Delivery Method: Simple Mask Oxygen Flow Rate (L/min): 6 Assessment Airway patent: Yes Spontaneous unlabored respirations: Yes Mental status: Asleep nausea: No Vomiting: No Anesthesia Complication: No Fluid Hydration Crystalloid volume administer (ml): 1,300 Total IV fluid infused: 1,300 Progress Note Anesthesia document: Postop Eval 1 completed: Yes
[2024-03-28] MEDS: Ketorolac 15 MG/ML Vial IV (16:16)
[2024-03-28 19:02] LABS: Bedside Glucose 83 mg/dL (74-106)
[2024-03-29 02:13] VITALS: BP 97/45; PULSE 88; RESP 16; TEMP 36.8; O2SAT 94
[2024-03-29] MEDS: 0.9% Normal Saline (1000mL) 1,000 ML 75 ML IV (02:23)
[2024-03-29] MEDS: 0.9% Normal Saline (500mL Bag) 500 ML 999 ML IV (04:01)
[2024-03-29 05:56] VITALS: BP 109/48; PULSE 95; RESP 16; TEMP 36.9; O2SAT 97
[2024-03-29 07:06] LABS: Hematocrit 38.9 % (37-47); Hemoglobin 11.8 g/dL (12.0-15.0); Mean Corp Hgb Conc 30.3 g/dL (32-36); Mean Corpuscular Hgb 25.2 pg (27.0-32.0); Mean Corpuscular Volume 83.1 fL (81-99); Mean Platelet Vol. 8.6 fl (6.2-12.0); Platelet Count 382 K/mm3 (150-450); RBC Distribution Width CV 16.3 % (11.6-14.6); RBC Distribution Width SD 49.1 fl (35.1-43.9); Red Blood Count 4.68 M/mm3 (4.2-5.4); White Blood Count 14.9 K/mm3 (4.4-11.0)
[2024-03-29 07:38] LABS: Anion Gap 13 (5-15); BUN 12 mg/dL (7-18); BUN/Creat Ratio 14.3 RATIO (10-20); Calcium,Total 8.4 mg/dL (8.5-10.1); Chloride 112 mmol/L (98-107); Creatinine, Serum 0.84 mg/dL (0.55-1.02); EST Glomerular Filtration Rate 70 mL/min (>60); Est Glom Filt Rate - Afr Amer 84 mL/min (>60); Estimated Creatinine Clearance 48.43 ml/min; Glucose 68 mg/dL (74-106); Magnesium 1.8 mg/dL (1.6-2.6); Phosphorus 4.1 mg/dL (2.5-4.9); Potassium 3.7 mmol/L (3.5-5.1); Sodium Level 141 mmol/L (136-145)
[2024-03-29 08:00] VITALS: BP 99/46; PULSE 94; RESP 15; TEMP 36.6; O2SAT 97
--- NOTE | 2024-03-29 09:59 | PCM.PN.SRG ---
Subjective Subjective Patient is only having minimal gas denies any nausea or vomiting. Objective Data Objective Data Vital Signs: Vital Signs Temp Pulse Resp BP Pulse Ox O2 Del Method O2 Flow Rate 97.9 F 94 15 99/46 L 97 Room Air 6 03/29/24 08:00 03/29/24 08:00 03/29/24 08:00 03/29/24 08:00 03/29/24 08:00 03/29/24 08:00 03/28/24 16:00 Oxygen Flow Rate (L/min) 6 Oxygen Delivery Method Room Air Weight: 142 lb 2 oz Body Mass Index (BMI) 24.3 Intake & Output: Intake and Output for Last 24 Hours 03/27/24 03/28/24 03/29/24 23:59 23:59 23:59 Intake Total 1913.75 / 1913.75 3135 / 3135 1226.25 / 1226.25 Output Total 650 / 650 200 / 200 Balance 3.75 / 3.75 2485 / 2485 1026.25 / 1026.25 Lab / Micro Data 03/29/24 06:35 03/29/24 06:35 Labs: Laboratory Results - last 24 hr 03/28/24 08:00: Sodium 140, Potassium 3.4 L, Chloride 108 H, Carbon Dioxide 18.0 L, Anion Gap 14, BUN 12, Creatinine 0.58, Estim Creat Clear Calc 50.85, Est GFR (MDRD) Af Amer 130, Est GFR (MDRD) Non-Af 108, BUN/Creatinine Ratio 20.8 H, Glucose 56 L, Calcium 8.9 03/28/24 18:43: POC Glucose 83 03/29/24 06:35: WBC 14.9 H, RBC 4.68, Hgb 11.8 L, Hct 38.9, MCV 83.1 D, MCH 25.2 L, MCHC 30.3 L, RDW Std Deviation 49.1 H, RDW Coeff of Honorio 16.3 H, Plt Count 382, MPV 8.6, Sodium 141, Potassium 3.7, Chloride 112 H, Carbon Dioxide 16.0 L, Anion Gap 13, BUN 12, Creatinine 0.84, Estim Creat Clear Calc 48.43, Est GFR (MDRD) Af Amer 84, Est GFR (MDRD) Non-Af 70, BUN/Creatinine Ratio 14.3, Glucose 68 L, Calcium 8.4 L, Phosphorus 4.1, Magnesium 1.8 Micro: Microbiology 03/26/24 12:45 Urine, Clean Catch Urine Culture - Final Escherichia coli Physical Exam Resp normal respiratory effort Cardio regular rate GI GI Narrative: Abdomen: Soft, nondistended, tender near incision's dressed clean dry and intact, no peritoneal signs Assessment & Plan Assessment/Plan (1) S/P small bowel resection: (2) Small bowel mass: PLAN: Plan Patient denies any nausea or vomiting and is thirsty/hungry. Will advance to clears as patient is only having minimal flatus. Patient has more bowel function will advance diet. Encourage ambulation Pain control DVT prophylaxis Alayna Nevarez M.D. Pager: [phone] [facility] [address] [place] [address], [address] [place] [id number] Office: [phone]
[2024-03-29] MEDS: Ceftriaxone 1 GM/50 ML BAG IV (10:14)
[2024-03-29] MEDS: Enoxaparin 40 MG/0.4 ML Syringe SC (10:14)
--- NOTE | 2024-03-29 10:48 | PN.HOSP_ITS ---
Reason for Visit Reason for Visit: Abdominal pain/nausea and vomiting Subjective Subjective No issues overnight. Patient states she had some flatus overnight but none yet today. Denies any significant abdominal pain. States she is just sleepy from her anesthesia. Is asking if she can have a pass to go to a reunion today. We discussed that that is not a good idea and then if she indeed wanted to leave she have to leave AGAINST MEDICAL ADVICE and then come back to the emergency. Objective Data Objective Data Vital Signs: Vital Signs Temp Pulse Resp BP Pulse Ox O2 Del Method O2 Flow Rate 97.9 F 94 15 99/46 L 97 Room Air 6 03/29/24 08:00 03/29/24 08:00 03/29/24 08:00 03/29/24 08:00 03/29/24 08:00 03/29/24 08:00 03/28/24 16:00 Oxygen Flow Rate (L/min) 6 Oxygen Delivery Method Room Air Weight: 64.467 kg Body Mass Index (BMI) 24.3 Intake & Output: Intake and Output for Last 24 Hours 03/27/24 03/28/24 03/29/24 23:59 23:59 23:59 Intake Total 1912.75 / 1912.75 3135 / 3135 1226.25 / 1226.25 Output Total 650 / 650 200 / 200 Balance 1912.75 / 1912.75 2485 / 2485 1026.25 / 1026.25 Lab / Micro Data 03/29/24 06:35 03/29/24 06:35 Labs: Laboratory Results - last 24 hr 03/28/24 18:43: POC Glucose 83 03/29/24 06:35: WBC 14.9 H, RBC 4.68, Hgb 11.8 L, Hct 38.9, MCV 83.1 D, MCH 25.2 L, MCHC 30.3 L, RDW Std Deviation 49.1 H, RDW Coeff of Honorio 16.3 H, Plt Count 382, MPV 8.6, Sodium 141, Potassium 3.7, Chloride 112 H, Carbon Dioxide 16.0 L, Anion Gap 13, BUN 12, Creatinine 0.84, Estim Creat Clear Calc 48.43, Est GFR (MDRD) Af Amer 84, Est GFR (MDRD) Non-Af 70, BUN/Creatinine Ratio 14.3, G lucose 68 L, Calcium 8.4 L, Phosphorus 4.1, Magnesium 1.8 Micro: Microbiology 03/26/24 12:45 Urine, Clean Catch Urine Culture - Final Escherichia coli Physical Exam Const alert, oriented x3, no apparent distress, average body habitus and well nourished Constitutional Narrative: Pleasant, elderly, white female, lying in bed resting with eyes closed but awakens easily to voice, appears comfortable and nontoxic HEENT head/scalp atraumatic and moist oral mucous membranes HEENT Narrative: Mallampati 2, no thrush Head and Scalp: normocephalic Resp normal respiratory effort, no retractions, no use of accessory muscles and clear to auscultation bilaterally Auscultation: Negative for rales, rhonchi or wheezes Cardio regular rate, regular rhythm, S1 normal heart sound, S2 normal heart sound, no rub, no gallops and no clicks; Negative for no murmurs Cardio Narrative: 2 out of 6 systolic murmur loudest at right upper sternal border GI GI Narrative: Bowel sounds are hypoactive, postoperative incisions with dressings in place, large incision with some old blood staining but otherwise unremarkable, mild diffuse postoperative tenderness present, abdomen is soft Extremity no clubbing, cyanosis or edema Extremity Narrative: Pedal pulses are 2+ Neuro oriented x3, moves all extremities and no focal motor deficits Speech: speech normal Psych affect normal Psych Narrative: Extremely pleasant, interacts appropriately, eye contact is good Assessment & Plan Assessment/Plan (1) Bowel obstruction: (2) Abnormal urinalysis: (3) UTI (urinary tract infection): (4) Hypokalemia: PLAN: Plan Small bowel obstruction secondary to small bowel mass with enlarged lymph nodes -Postop day 1 exploratory laparoscopy with small bowel resection -Mass found in the small bowel -Pathology is pending -Clear liquids started by general surgery -Discontinue IV fluids -Continue antiemetics -Continue medication for pain -Discontinue Toradol E. coli UTI -Continue ceftriaxone for now--> dose 4 of 7 -Will transition to Keflex tomorrow if p.o. intake continues to be non- problematic Leukocytosis -Likely reactive from surgery -Will repeat in a.m. Non-anion gap metabolic acidosis -Likely related to hyperchloremia -Discontinue normal saline -Repeat lab in a.m. Hypokalemia -Resolved Anemia -Mild -Within baseline and remained stable postoperatively -Continue to monitor especially in the postoperative period Leukopenia -Resolved History of osteoporosis -Restart multivitamin when p.o. intake is applicable DVT prophylaxis -Continue subcu Lovenox CODE STATUS Full code Charges/Coding Visit Charges Inpatient E&M: 47199 Subs Hosp L2
--- NOTE | 2024-03-29 11:35 | POSTOPAN2_ITS ---
Anesthesia Postop Eval I Sum Postop Eval Completion status Anesthesia document: Postop Eval 1 completed: Yes Anesthesia Postop Eval I Summary Anesthesia Postop Eval I Summary: Anesthesia Postop Eval I: Assessment Summary Airway patent Yes 03/28/24 15:57 ELECTRICAL DESIGN [email or web address].[email or web address] Spontaneous unlabored Yes 03/28/24 15:57 ELECTRICAL DESIGN TECHNOLOGIST.ALECOBDandre respirations Mental status Asleep 03/28/24 15:57 ELECTRICAL DESIGN TECHNOLOGIST.[email or web address] nausea No 03/28/24 15:57 ELECTRICAL DESIGN TECHNOLOGIST.[email or web address] Vomiting No 03/28/24 15:57 ELECTRICAL DESIGN TECHNOLOGIST.[email or web address] Anesthesia Postop Eval I: Fluid Summary Crystalloid volume administer 1,300 03/28/24 15:57 ELECTRICAL DESIGN TECHNOLOGIST.SKOBY (ml) Colloids volume administered ( ml) Blood Product volume administered (ml) Total IV fluid infused 1,300 03/28/24 15:57 ELECTRICAL DESIGN TECHNOLOGIST.ALECOBDandre Anesthesia Postop Eval I: Summary Notes Anesthesia Complication No 03/28/24 15:57 ELECTRICAL DESIGN TECHNOLOGIST.ALECOBDandre Anesthesia Complication Comment: Post-operative progress note Anesthesia: Postop Eval II Evaluation Mental status: Awake and Calm Pain Level: 3 nausea: No Vomiting: No Complications Anesthesia Complication: No
--- NOTE | 2024-03-29 11:35 | PCM.POSTANE2 ---
Anesthesia Postop Eval I Sum Postop Eval Completion status Anesthesia document: Postop Eval 1 completed: Yes Anesthesia Postop Eval I Summary Anesthesia Postop Eval I Summary: Anesthesia Postop Eval I: Assessment Summary Airway patent Yes 03/28/24 15:57 DRY DIP [email or web address] Spontaneous unlabored Yes 03/28/24 15:57 DRY DIP WORKER.ALECOBDandre respirations Mental status Asleep 03/28/24 15:57 DRY DIP [email or web address] nausea No 03/28/24 15:57 DRY DIP WORKER.[email or web address] Vomiting No 03/28/24 15:57 DRY DIP [email or web address] Anesthesia Postop Eval I: Fluid Summary Crystalloid volume administer 1,300 03/28/24 15:57 DRY DIP [email or web address] (ml) Colloids volume administered ( ml) Blood Product volume administered (ml) Total IV fluid infused 1,300 03/28/24 15:57 DRY DIP WORKER.ALECOBDandre Anesthesia Postop Eval I: Summary Notes Anesthesia Complication No 03/28/24 15:57 DRY DIP WORKER.ALECOBDandre Anesthesia Complication Comment: Post-operative progress note Anesthesia: Postop Eval II Evaluation Mental status: Awake and Calm Pain Level: 3 nausea: No Vomiting: No Complications Anesthesia Complication: No
[2024-03-29 14:00] VITALS: BP 114/45; PULSE 94; RESP 13; TEMP 36.7; O2SAT 97
[2024-03-29] MEDS: Acetaminophen 500 MG Tablet 1000 MG PO (18:30)
[2024-03-29] MEDS: 0.9% Saline Lock 10 ML Syringe IV (19:59)
[2024-03-29] MEDS: Morphine 2 MG/ML Syringe IV (19:59)
[2024-03-29] MEDS: Senna/Docusate Sodium 1 Tablet 2 TABLET PO (19:59)
[2024-03-29] MEDS: BENZOCAINE/MENTHOL 1 LOZENGE MUCOUS MEM (19:59)
[2024-03-29 20:14] VITALS: BP 128/59; PULSE 91; RESP 16; TEMP 37.2; O2SAT 96
[2024-03-30] MEDS: BENZOCAINE/MENTHOL 1 LOZENGE MUCOUS MEM (05:34)
[2024-03-30 05:52] LABS: Hematocrit 33.6 % (37-47); Hemoglobin 10.5 g/dL (12.0-15.0); Mean Corp Hgb Conc 31.3 g/dL (32-36); Mean Corpuscular Hgb 25.4 pg (27.0-32.0); Mean Corpuscular Volume 81.2 fL (81-99); Mean Platelet Vol. 8.8 fl (6.2-12.0); Platelet Count 339 K/mm3 (150-450); RBC Distribution Width CV 16.6 % (11.6-14.6); RBC Distribution Width SD 49.3 fl (35.1-43.9); Red Blood Count 4.14 M/mm3 (4.2-5.4); White Blood Count 8.3 K/mm3 (4.4-11.0)
[2024-03-30] MEDS: Acetaminophen 500 MG Tablet 1000 MG PO (06:24)
[2024-03-30 06:27] LABS: Anion Gap 9 (5-15); BUN 9 mg/dL (7-18); BUN/Creat Ratio 16.2 RATIO (10-20); Calcium,Total 8.7 mg/dL (8.5-10.1); Chloride 110 mmol/L (98-107); Creatinine, Serum 0.56 mg/dL (0.55-1.02); EST Glomerular Filtration Rate 112 mL/min (>60); Est Glom Filt Rate - Afr Amer 136 mL/min (>60); Estimated Creatinine Clearance 50.85 ml/min; Glucose 88 mg/dL (74-106); Potassium 3.2 mmol/L (3.5-5.1); Sodium Level 140 mmol/L (136-145)
[2024-03-30 06:37] VITALS: BP 148/68; PULSE 85; RESP 16; TEMP 36.3; O2SAT 96
[2024-03-30 08:02] VITALS: BP 108/57; PULSE 80; RESP 16; TEMP 36.8; O2SAT 95
--- NOTE | 2024-03-30 08:32 | NURSING ---
Dr. Nevarez came in to see pt and this RN asked her about the order of KDur 60meq that she just ordered this morning. Informed Dr. Nevarez of order from Dr. Ochoa of 40meq of KDur. Dr. Nevarez did not see Dr. Ochoa's order. Order to discontinue the 60meq of potassium.
--- NOTE | 2024-03-30 08:36 | PN.SURG_ITS ---
Subjective Subjective Tolerated clears, positive flatus thinks may have a bowel movement this morning. Objective Data Objective Data Vital Signs: Vital Signs Temp Pulse Resp BP Pulse Ox O2 Del Method O2 Flow Rate 98.3 F 80 16 108/57 L 95 Room Air 6 03/30/24 08:02 03/30/24 08:02 03/30/24 08:02 03/30/24 08:02 03/30/24 08:02 03/30/24 08:02 03/28/24 16:00 Oxygen Flow Rate (L/min) 6 Oxygen Delivery Method Room Air Weight: 142 lb 2 oz Body Mass Index (BMI) 24.3 Intake & Output: Intake and Output for Last 24 Hours 03/28/24 03/29/24 03/30/24 23:59 23:59 23:59 Intake Total 3135 / 3135 2166.25 / 2166.25 Output Total 650 / 650 200 / 200 Balance 2485 / 2485 1966.25 / 1966.25 Lab / Micro Data 03/30/24 05:00 03/30/24 05:00 Labs: Laboratory Results - last 24 hr 03/30/24 05:00: WBC 8.3, RBC 4.14 L, Hgb 10.5 L, Hct 33.6 L, MCV 81.2, MCH 25.4 L, MCHC 31.3 L, RDW Std Deviation 49.3 H, RDW Coeff of Honorio 16.6 H, Plt Count 339, MPV 8.8, Sodium 140, Potassium 3.2 L, Chloride 110 H, Carbon Dioxide 21.0, Anion Gap 9, BUN 9, Creatinine 0.56, Estim Creat Clear Calc 50.85, Est GFR (MDRD) Af Amer 136, Est GFR (MDRD) Non-Af 112, BUN/Creatinine Ratio 16.2, Glucose 88, Calcium 8.7 Micro: Microbiology 03/26/24 12:45 Urine, Clean Catch Urine Culture - Final Escherichia coli Physical Exam Resp normal respiratory effort Cardio regular rate GI GI Narrative: Abdomen: Soft, nondistended, tender near incision's dressed clean dry and intact, no peritoneal signs Assessment & Plan Assessment/Plan (1) S/P small bowel resection: (2) Small bowel mass: (3) UTI (urinary tract infection): PLAN: Plan Will advance to full if has bowel movement will be able to advance diet possible DC today. Continue ambulation. UTI currently on Rocephin plans to transition to Keflex per medicine Alayna Nevarez M.D. Pager: [phone] [facility] [address] [place] [address], [address] [place] [id number] Office: [phone]
--- NOTE | 2024-03-30 08:39 | DCINST_ITS ---
Discharge Instructions Diet Discharge Diet: - (Transitional/low fiber) Activity Discharge Activity: May Shower Lifting Restrictions: no lifting > 20 lb x 2 weeks Dressing / Incision Call your doctor if your incision/area has: Continuous Slow Oozing, Sudden Increased Bleeding, Increased Pain/ Swelling, Increased Redness and Swelling at the incision site Change Dressing in: 1 day (Only need to replace dressing if drainage.) Cleanse incision/area with: Soap & Water Follow Up Care Please Follow Up With: Angel Cole MD When: Call the office for a follow-up in 1 to 2 weeks. [phone] Test Results: Test results from this visit will be discussed in further detail at your follow- up appointment, if applicable. Discharge Plan Admission Admit Date/Time: 03/26/24 15:13 Attending Provider: Alana Ochoa Primary Care Provider: Eva Grant Consulting Providers: Angel Cole; Lilian Pena Discharge Orders/Prescriptions Prescriptions: No Action Plexus 2 - 4 cap PO/SL DAILY multivitamin Tablet 1 tab PO DAILY docusate sodium 100 mg tablet 100 mg PO DAILY Referrals / Follow Up: Eva Grant DO [Primary Care Provider] - Disposition Disposition (needs filled in before D/C Order can be placed): Home, Self Care
[2024-03-30] MEDS: Potassium Chloride Oral Tablet 20 MEQ 40 MEQ PO (09:20)
[2024-03-30] MEDS: Enoxaparin 40 MG/0.4 ML Syringe SC (09:21)
[2024-03-30] MEDS: Ceftriaxone 1 GM/50 ML BAG IV (09:31)
--- NOTE | 2024-03-30 12:16 | PCM.DC.SUM ---
Providers Date of Admission: 03/26/24 Date of Discharge: 03/30/24 Primary Care Physician: Dr. Eva Grant, DO Consultations 03/26/24 15:37 Consult: General Surgery Routine Consulting Provider: Angel Cole Reason for Consult: SBO, pt for surgery EMERGENT Consult: No MD Notified: Yes Date Notified: 03/26/24 Time Notified: 15:18 Method of Notification: ED Physician Initiated Reason For Visit: SBO Diagnosis Discharge Diagnosis (1) S/P small bowel resection: Status: Acute Code(s): Z90.49 - Acquired absence of other specified parts of digestive tract (2) Small bowel mass: Status: Acute Code(s): K63.89 - Other specified diseases of intestine (3) UTI (urinary tract infection): Status: Acute Code(s): N39.0 - Urinary tract infection, site not specified Medications at Discharge Home Medications Plexus 2 - 4 cap PO/SL DAILY stomach 03/25/21 multivitamin 1 tab PO DAILY supplement 08/30/22 docusate sodium 100 mg tablet 100 mg PO DAILY 03/26/24 cephalexin 500 mg capsule 500 mg PO BID #4 caps 03/30/24 sennosides 8.6 mg-docusate sodium 50 mg tablet (Stool Softener-Stimulant Laxative) 2 tab PO BID PRN PRN Constipation #0 tabs 03/30/24 tramadol 50 mg tablet 50 mg PO Q6H PRN PRN Pain Score 1-10 #12 tabs 03/30/24 Hospital Course Operations - (Exploratory laparoscopy with small bowel resection) Procedures - (CT abdomen and pelvis) Summary of Care Provided Minutes Spent on Discharge: 39 Hospital Course: Mrs. Rendon is a 78-year-old white female who presented to the emergency department at [facility] on 03/26/2024 with significant abdominal pain, intractable nausea and vomiting and poor p.o. intake. She had a previous hospitalization at the end of January at which time she had small bowel obstruction that resolved without any surgical intervention. Since discharge she did having ongoing intermittent symptoms but nothing persistent. Over the 24 hours prior to admission she was having severe lower abdominal pain, nausea and vomiting and dry heaving. Vital signs demonstrated temperature of 97.6, heart rate 90, respiratory rate was 18, blood pressure was 134/71, and pulse ox was 97% on room air. CBC was overtly unremarkable other than a mild stable anemia. Chemistry panel showed mild hypokalemia with a potassium of 3.2 but was otherwise unremarkable. Lactic acid was 1.3 and lipase was normal. UA was suggestive of infection as well with positive leuk esterase, nitrate, white cells and 1+ bacteria. Urine culture was sent and antibiotics were started. CT of the abdomen pelvis showed focal enteritis and early partial small bowel obstruction with a loop of small bowel in the pelvis and no evidence of ischemia or perforation. She was seen by general surgery in the emergency department and given this is an ongoing issue he felt an ex lap would be appropriate. She was taken to the operating room on 03/28/2024 at which time an exploratory laparoscopy with small bowel resection was performed. She was noted to have a mass that was sent for pathology and pathology was pending at discharge. Lymphadenopathy was noted at well and this was felt to be likely malignancy. Postop day 1 she was started on a clear liquid diet which she tolerated well and then on the a.m. of 03/30/2024 she had a large bowel movement and her diet was advanced to transitional diet which she tolerated well. She was also found to have a urinary tract infection with E. coli during her hospital course and was treated with ceftriaxone while hospitalized until p.o. could be reinitiated and then completed treatment with Keflex. Prescription for Keflex x 2 days was sent with her at discharge to complete antibiotic course. The patient was able to be discharged in stable condition to home on 03/30/2024. She is to follow-up in Dr. Cole's office within the next 2 weeks and call on Sunday to set up an appointment. We have also asked that she follow-up with her primary care physician within the next 2 weeks. Pathology results will be discussed with her when she follows up with Dr. Cole. She was sent home with a short course of Ultram for pain and asked to utilize a transitional diet with high-fiber by general surgery. Discharge diagnoses: Small bowel obstruction secondary to mass-pathology pending E. coli UTI Hypokalemia-resolved History of osteoporosis Physical Exam Const alert, oriented x3, no apparent distress, average body habitus, no limitations, healthy appearing and well nourished Constitutional Narrative: Pleasant, elderly, white female, sitting up in bed talking on her phone, appears comfortable and nontoxic General Appearance: cooperative, comfortable, well kempt and well developed Orientation / Consciousness: awake, oriented to person, oriented to place and oriented to time Exam Limitations: no limitations HEENT normocephalic, head/scalp atraumatic, hearing grossly normal bilaterally and moist oral mucous membranes HEENT Narrative: Mallampati 2, no thrush Eyes PERRL, EOMs intact bilaterally and conjunctivae normal Eyes Narrative: No scleral icterus Neck no lymphadenopathy and supple Neck Narrative: Trachea midline, no thyroid enlargement Resp normal respiratory effort, no retractions, no use of accessory muscles and clear to auscultation bilaterally Auscultation: Negative for rales, rhonchi or wheezes Cardio regular rate, regular rhythm, S1 normal heart sound, S2 normal heart sound, no rub, no gallops and no clicks; Negative for no murmurs Cardio Narrative: 2 out of 6 systolic murmur loudest at right upper sternal border GI GI Narrative: postoperative incisions with dressings in place, large incision with some old blood staining but otherwise unremarkable, minimal tenderness, abdomen is soft, bowel sounds are good Extremity no clubbing, cyanosis or edema Extremity Narrative: Pedal pulses are 2+ Skin no rashes or lesions noted, skin turgor normal and no jaundice Skin Narrative: Postoperative surgical incision as above Neuro oriented x3, moves all extremities and no focal motor deficits Speech: speech normal Psych affect normal Psych Narrative: Extremely pleasant, interacts appropriately, eye contact is good Weight / BMI Weight Weight: 64.467 kg Body Mass Index (BMI) 24.3 ABG / Lab / Microbiology Data 03/30/24 05:00 03/30/24 05:00 Laboratory: Laboratory Results - last 24 hr 03/30/24 05:00: WBC 8.3, RBC 4.14 L, Hgb 10.5 L, Hct 33.6 L, MCV 81.2, MCH 25.4 L, MCHC 31.3 L, RDW Std Deviation 49.3 H, RDW Coeff of Honorio 16.6 H, Plt Count 339, MPV 8.8, Sodium 140, Potassium 3.2 L, Chloride 110 H, Carbon Dioxide 21.0, Anion Gap 9, BUN 9, Creatinine 0.56, Estim Creat Clear Calc 50.85, Est GFR (MDRD) Af Amer 136, Est GFR (MDRD) Non-Af 112, BUN/Creatinine Ratio 16.2, Glucose 88, Calcium 8.7 Microbiology: Microbiology 03/26/24 12:45 Urine, Clean Catch Urine Culture - Final Escherichia coli D/C Instructions Discharge Diet: - (Transitional/low fiber) Discharge Activity: Return to Normal Activity Call your doctor if your incision/area has: Continuous Slow Oozing, Sudden Increased Bleeding, Increased Pain/ Swelling, Increased Redness and Swelling at the incision site Cleanse incision/area with: Soap & Water Please Follow Up With: Angel Cole MD When: Call the office for a follow-up in 1 to 2 weeks. [phone] Meaningful Use Info Meaningful Use Meaningful Use Diagnoses (Choose all that apply): None applicable Ischemic Stroke Statin Dosing Therapy Reference: STATIN DOSE THERAPY REFERENCE: * Patients > 75 years receive moderate or high dose statin therapy. * Patients 75 years or YOUNGER should receive HIGH intensity statin dose unless contraindicated. You will be required to document reason for non-treatment if statin daily dose does not meet guidelines. HIGH DOSE STATIN THERAPY DAILY Atorvastatin > than or = to 40 mg Rosuvastatin > than or = to 20 mg Amlodipine + Atorvastatin > than or = to 2.5/40 mg Ezetimibe + Simvastatin 10/80 mg Simvastatin 80mg Discharge Plan Admission Admit Date/Time: 03/26/24 15:13 Primary Reason for Your Visit: Abdominal pain/nausea and vomiting Attending Provider: Alana Ochoa Primary Care Provider: Eva Grant Consulting Providers: Angel Cole; Lilian Pena Instructions Additional Instructions / Restrictions: 1. The pathology from your surgery is still pending at the time of discharge and will be discussed with you at your follow-up appointment with Dr. Cole. Discharge Orders/Prescriptions Prescriptions: New tramadol 50 mg Tablet 50 mg PO Q6H PRN PRN (Reason: Pain Score 1-10) Qty: 12 0RF sennosides-docusate sodium [Stool Softener-Stimulant Laxat] 8.6-50 mg Tablet 2 tab PO BID PRN PRN (Reason: Constipation) Qty: 0 0RF cephalexin 500 mg capsule 500 mg PO BID Qty: 4 0RF No Action Plexus 2 - 4 cap PO/SL DAILY multivitamin Tablet 1 tab PO DAILY docusate sodium 100 mg tablet 100 mg PO DAILY Referrals / Follow Up: Angel Cole MD [Med Staff - Active Staff] - Within 2 Weeks Eva Grant DO [Primary Care Provider] - Within 2 Weeks Disposition Disposition (needs filled in before D/C Order can be placed): Home, Self Care Charges/Coding Visit Charges Inpatient E&M: 32670 Disch Hosp >30min
[2024-03-30 12:44] VITALS: BP 155/64; PULSE 89; RESP 18; TEMP 37.1; O2SAT 98
== END 2024-03-30 14:00 | disposition home or self-care (01) | DRG 330 ==
LOC: ED 14:27 → MS3 14:47
PROVIDERS: Surgery; Admitting Provider Internal Medicine; Emergency Provider Emergency Medicine; Visit Provider Internal Medicine
PROC: 0DB84ZZ Excision of Small Intestine, Percutaneous Endoscopic Approach (ICD-10-PCS; CPT 44202; principal; 2024-03-28 13:40)
DX: C7A.019 Malignant carcinoid tumor of the small intestine, unspecified portion (principal); K56.690 Other partial intestinal obstruction; E87.20 Acidosis, unspecified; N39.0 Urinary tract infection, site not specified; D64.9 Anemia, unspecified; E87.6 Hypokalemia; E87.8 Other disorders of electrolyte and fluid balance, not elsewhere classified; K52.9 Noninfective gastroenteritis and colitis, unspecified; B96.20 Unspecified Escherichia coli [E. coli] as the cause of diseases classified elsewhere; Z79.01 Long term (current) use of anticoagulants; Z86.73 Personal history of transient ischemic attack (TIA), and cerebral infarction without residual deficits; Z90.49 Acquired absence of other specified parts of digestive tract; M81.0 Age-related osteoporosis without current pathological fracture
CPT/HCPCS: 36415; 74177; 80048; 80053; 81001; 81002; 82962; 83605; 83690; 83735; 84100; 85025; 85027; 85610; 85730; 87077; 87086; 87088; 87186; 88307; 88341; 88342; 93005; 94668; 99284; J7030; J7040; J7050; Q9967; A4216; C1760; J2405

== ENCOUNTER → 2024-06-12 | Outpatient (CLI) | payer MEDICARE, SELFPAY ==
--- NOTE | 2024-06-12 08:06 | BI_ITS ---
MAMMOGRAPHY - BILATERAL SCREENING REASON FOR EXAM: Female, 78 years old. Routine annual screening examination. PERTINENT HISTORY: Non-contributory. TECHNIQUE: Digital bilateral breast abelardo (3D mammographic acquisition) in the CC and MLO projections. 2-D mediolateral oblique (MLO) and craniocaudad (CC) views of both breasts were obtained. CAD: Full Field Digital Mammography with Computer Added Detection was performed. COMPARISON: No comparison mammograms available at this time. If any prior films become available, an addendum to this report can be generated. FINDINGS: Breast Composition: The breasts are heterogeneously dense, which may obscure small masses. There are no dominant masses or suspicious calcifications. Left axillary lymph nodes. No other significant abnormalities are identified. There has been no significant change since the prior study. BI/SCRN MAMM (CAD)W/ABELARDO BILAT IMPRESSION: Stable bilateral screening mammogram. Yearly follow-up mammogram recommended. (A) ASSESSMENT CATEGORY: BIRADS Category 2: Benign. A letter regarding these results will be sent to the patient by the facility within 30 days. Approximately 10% of breast cancers are not detected by mammography. A normal mammogram should not delay biopsy of a clinically suspicious abnormality. [id number] Electronically Signed: James Thompson MD at 9:25 EDT ,
== END | disposition home or self-care (01) ==
LOC: OPBI 08:06
PROVIDERS: Referring Provider Internal Medicine Hematology & Oncology; Visit Provider Internal Medicine Hematology & Oncology
DX: Z12.31 Encounter for screening mammogram for malignant neoplasm of breast (principal)
CPT/HCPCS: 77063; 77067

== ENCOUNTER → 2024-07-07 | Outpatient (CLI) | payer MEDICARE, SELFPAY ==
--- NOTE | 2024-07-07 13:17 | CT_ITS ---
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 The protocol utilizes one or more of the following dose reduction techniques: automated exposure control, adjustment of mA and/or kV according to patient size,and/or use of iterative reconstruction technique. IV Contrast dosage and agent: 100 cc of Isovue-370 Oral contrast: None. RADIATION DOSAGE (If Supplied By Facility): CTDIvol = ( 12.16 ) mGy, DLP = ( 900.33 ) mGycm COMPARISON: March 26, 2024, February 11, 2024 and PET/CT dated July 01, 2024 FINDINGS: LOWER CHEST: There is a separate dedicated CT report of the chest. LIVER: Homogeneous. No focal mass. GALLBLADDER AND BILIARY TREE: There are surgical clips within the gallbladder fossa consistent with prior closed appendectomy. . No intra- or extrahepatic biliary ductal dilation. PANCREAS: No focal cystic or solid mass. SPLEEN: Normal size without focal cystic or solid mass. ADRENAL GLANDS: No nodules. KIDNEYS AND URETERS: Normal renal size and position. No hydronephrosis. There is a stable left renal cyst. PERITONEUM: No ascites or free air. No other fluid collection. BOWEL: No stomach or bowel distension. There are diverticula arising from the colon. No focal inflammatory change. LYMPH NODES: No enlarged mesenteric or retroperitoneal lymph nodes. VESSELS: Aorta is non-dilated. There are peripheral calcifications of the abdominal aorta. URINARY BLADDER: Unremarkable. REPRODUCTIVE ORGANS: No pelvic masses. There are prominent veins within the left adnexa. ABDOMINAL WALL: There are postsurgical changes along the anterior abdominal wall. BONES: There are degenerative changes of the visualized thoracic and lumbar spine. There is a stable right total hip arthroplasty in place. CT/CT Abd/Pelvis W/WO Contrast IMPRESSION: Colonic diverticulosis. Prominent veins within the left adnexa which may reflect pelvic congestion syndrome. Atherosclerosis. Electronically Signed: Pily Aldana MD at 9:15 EDT ,
--- NOTE | 2024-07-07 13:17 | CT_ITS ---
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 The protocol utilizes one or more of the following dose reduction techniques: automated exposure control, adjustment of mA and/or kV according to patient size,and/or use of iterative reconstruction technique. IV Contrast dosage and agent: 100 cc of Isovue 370 RADIATION DOSAGE (If Supplied By Facility): CTDIvol = ( 12.16 ) mGy, DLP = ( 900.33 ) mGycm COMPARISON: PET/CT dated July 01, 2024 Please note this examination is dated July 07, 2024 and is being read on July 11, 2024 FINDINGS: LUNGS, PLEURA AND LARGE AIRWAYS: There are few right lower lobe granulomas. There is stable minimal bibasilar atelectasis and/or scarring within the lower lobes. No pleural effusion or thickening. No pneumothorax. THYROID: No thyroid lesions. HEART AND PERICARDIUM: Heart size is normal. No pericardial effusion. There are mitral annulus calcifications. No coronary artery calcifications are visualized. VESSELS: Thoracic aorta is not dilated. No aortic dissection. There are calcifications of the aortic valve. No obvious central pulmonary embolism although this study was not performed with the pulmonary embolism protocol. MEDIASTINUM AND RICARDO: There are calcified mediastinal and right hilar lymph nodes. Esophagus is unremarkable. No hiatal hernia. UPPER ABDOMEN: There is a separate dedicated CT report of the abdomen and pelvis. BONES: There are degenerative changes of the thoracic spine. No suspicious lytic or blastic abnormality. CT/Chest WITH Contrast IMPRESSION: No acute cardiopulmonary process. Atherosclerosis. Mitral annulus calcifications. Electronically Signed: Pily Aldana MD at 9:26 EDT ,
[2024-07-07 13:53] LABS: CREATININE FINGERSTICK < 1.0 mg/dL (0.55-1.02); EGFR FINGERSTICK > 60.0000 mL/min (>60)
== END | disposition home or self-care (01) ==
LOC: CT 13:14
PROVIDERS: Referring Provider Internal Medicine Hematology & Oncology; Visit Provider Internal Medicine Hematology & Oncology
DX: Z01.812 Encounter for preprocedural laboratory examination (principal); C77.9 Secondary and unspecified malignant neoplasm of lymph node, unspecified; C17.9 Malignant neoplasm of small intestine, unspecified; D3A.8 Other benign neuroendocrine tumors
CPT/HCPCS: 71260; 74178; Q9967

== ENCOUNTER → 2025-07-06 | Outpatient (CLI) | payer MEDICARE, SELFPAY ==
--- NOTE | 2025-07-06 12:46 | CT_ITS ---
PROCEDURE: CHEST WITH CONTRAST 07/06/2025 REASON FOR EXAM: NEUROENDROCRINE CA TECHNIQUE: Procedure Code: CTCHW Modality: CT Procedure: CHEST WITH CONTRAST Coronal and Sagittal reconstruction series were provided. CONTRAST: Isovue-300 VOLUME: 100 mL One or more dose reduction techniques were used (e.g., Automated exposure control, adjustment of the mA and/or kV according to patient size, use of iterative reconstruction technique). RADIATION DOSE SUMMARY: CTDlvol: 21.73 mGy DLP: 990.74 mGycm COMPARISON: None FINDINGS: Hardware: None Lymph nodes: Calcified subcarinal lymph node. No pathological lymph node seen. Heart and Vasculature: The heart is nonenlarged. Coronary artery calcification. Lungs and Airways: Hyperinflation. Linear scarring at the lung bases. There is a 6.1 mm ground-glass nodular density in the right upper lobe as seen on axial image number 65 and coronal image number 147. Three-month follow-up is recommended for further evaluation. Pleura: No pleural effusion. Upper Abdomen: Unremarkable Bones: Degenerative changes of the thoracic spine. Increased kyphosis. CT/Chest WITH Contrast IMPRESSION: Coronary artery calcification (CAC) is is present 6.1 mm ground-glass nodular density in the right upper lobe as described. Thre e-month follow-up recommended for further evaluation. Reading Location: [place] [id number]
--- NOTE | 2025-07-06 12:46 | CT_ITS ---
PROCEDURE: CT ABD/PELVIS W/WO CONTRAST 07/06/2025 REASON FOR EXAM: TRIPHASIC CT. Neuroendocrine tumor. No historical data was provided. TECHNIQUE: Procedure Code: [id number] Modality: CT Procedure: CT ABD/PELVIS W/WO CONTRAST Coronal and Sagittal reconstruction series were provided. CONTRAST: Isovue-300 VOLUME: 100 mL One or more dose reduction techniques were used (e.g., Automated exposure control, adjustment of the mA and/or kV according to patient size, use of iterative reconstruction technique. RADIATION DOSE SUMMARY: CTDlvol: 120 mGy DLP: 4402.07 mGycm COMPARISON: None FINDINGS: Lung bases: See CT chest report, same day. Liver: Normal size. No mass. Benign calcified granulomas. Gallbladder: Surgically absent. Spleen: Normal size. There are benign calcified splenic granulomas. Pancreas: Normal size without evidence of mass surrounding inflammation or ductal dilation. Adrenals: Normal. Kidneys: Normal renal sizes. No hydronephrosis. There is right nephrolithiasis. There are multiple peripelvic cysts in both kidneys. There is a cortical cyst in the upper pole of the left kidney. Bladder: The bladder appears unremarkable. Reproductive Organs: The pelvic organs are somewhat obscured by artifact from the patient's right total hip arthroplasty. The uterus and right ovary appear unremarkable. There are dilated serpiginous vessels surrounding the uterus consistent with pelvic congestion. There is ectasia of the left ovarian vein. There is no free fluid in the pelvis. There is no inguinal lymphadenopathy. Bowel: There is severe sigmoid diverticulosis without diverticulitis. There are scattered diverticuli throughout the remainder of the colon. Apparent partial small bowel resection. Appendix: The appendix is not identified. There is no inflammatory process identified in the right lower quadrant to suggest appendicitis. Lymph nodes: No suspicious lymph node enlargement. Vasculature: There is calcific vascular disease of the abdominal aorta. The inferior vena cava and portal venous system are normal. Peritoneum / Retroperitoneum: There is a midline suprapubic ventral hernia measuring 3.9 cm in diameter containing normal fat. Status post left lower quadrant ventral hernia repair. There are no abnormal intra or retroperitoneal masses or fluid collections. Bones: There is multilevel degenerative disc disease of the lower thoracic and lumbar spine. There is dextroscoliosis of the thoracolumbar spine. There is a right total hip arthroplasty. CT/CT Abd/Pelvis W/WO Contrast IMPRESSION: 1. Status post partial bowel resection. 2. No lymphadenopathy identified. 3. Pelvic congestion. 4. Colonic diverticulosis without diverticulitis. 5. Other findings as noted. No historical data was provided. Reading Location: [place] [address]
--- NOTE | 2025-07-06 13:07 | RAD.NOTE ---
Patient instructed to bring arms above head. Patient describes pain in shoulders, so we had her put her arms against the scanner with improvement of pain. Patient instructed that she would go into the scanner farther before coming out. During first line cook patient did not complain of pain. During second line cook the patient shouted and stated that we "broke her arm". Patient asked if she would like to bring arms down by her sides for remainder of exam. Patient had resolution of pain.
== END | disposition home or self-care (01) ==
LOC: CT 12:44
PROVIDERS: Referring Provider Internal Medicine Hematology & Oncology; Visit Provider Internal Medicine Hematology & Oncology
DX: C7A.8 Other malignant neuroendocrine tumors (principal)
CPT/HCPCS: 71260; 74178; Q9967

== ENCOUNTER → 2025-07-21 | Outpatient (CLI) | payer MEDICARE, SELFPAY ==
[2025-07-21 15:16] LABS: Hematocrit 38.3 % (37-47); Hemoglobin 11.9 g/dL (12.0-15.0); Immature Granulocytes Count 0.020 X10^3/uL (0.0-0.0); Mean Corp Hgb Conc 31.1 g/dL (32-36); Mean Corpuscular Volume 89.3 fL (81-99); Mean Platelet Vol. 8.6 fl (6.2-12.0); NRBC Flagged by Analyzer 0 % (0-5); Platelet Count 360 K/mm3 (150-450); RBC Distribution Width CV 14.4 % (11.6-14.6); RBC Distribution Width SD 47.2 fl (35.1-43.9); Red Blood Count 4.29 M/mm3 (4.2-5.4); White Blood Count 7.4 K/mm3 (4.4-11.0)
[2025-07-21 15:31] LABS: CRP < 3.00 mg/L (0.0-3.0)
== END | disposition home or self-care (01) ==
LOC: MTLAB 13:02
PROVIDERS: Referring Provider Ophthalmology; Visit Provider Ophthalmology
DX: G45.3 Amaurosis fugax (principal)
CPT/HCPCS: 36415; 85025; 85652; 86140

== ENCOUNTER → 2025-08-10 | Outpatient (CLI) | payer MEDICARE, SELFPAY ==
--- NOTE | 2025-08-10 09:54 | CDU_ITS ---
Reason For Study Reason For Study: Amaurosis fugax Rt. Velocities/BP Lt. Velocities/BP Prox CCA 52.2/11.6 cm/sec. Prox CCA 91.9/9.7 cm/sec. Mid CCA 48.5/9.7 cm/sec. Mid CCA 69.6/11.3 cm/sec. Dist CCA 44.7/11.6 cm/sec. Dist CCA 63/12.4 cm/sec. Prox ICA 126.6/29.8 cm/sec. Prox ICA 92.7/25.6 cm/sec. Mid ICA 88.3/28.9 cm/sec. Mid ICA 101.7/26.6 cm/sec. Dist ICA 100.3/27.8 cm/sec. Dist ICA 110.9/27.4 cm/sec. Rt. ICA/CCA = 2.61. Lt. ICA/CCA = 1.59. Prox ECA 81.5/4.1 cm/sec. Prox ECA 82.8/4.7 cm/sec. Rt. Vert. 46.5/10.7 cm/sec. Lt. Vert. 39.9/10.2 cm/sec. Right Extracranial There is homogeneous, smooth atherosclerotic plaque noted in the right common carotid artery. There is heterogeneous, irregular atherosclerotic plaque noted in the right internal carotid artery. There is intimal thickening but no significant atherosclerotic plaque noted in the right external carotid artery. Antegrade flow is noted in the right vertebral artery. Left Extracranial There is intimal thickening but no significant atherosclerotic plaque noted in the left common carotid artery. There is heterogeneous, irregular atherosclerotic plaque noted in the left internal carotid artery. There is intimal thickening but no significant atherosclerotic plaque noted in the left external carotid artery. Antegrade flow is noted in the left vertebral artery. Procedure Carotid Duplex [id number]. This is a Carotid Duplex examination using B-mode, color flow and specral Doppler. Exam performed in department. VL/Carotid Duplex Ultrasound Interpretation Summary Moderate (50-69%) stenosis right extracranial internal carotid. Mild (<50%) stenosis left extracranial internal carotid. Patent and antegrade vertebrals bilaterally. Ordering Physician: Gus Motta Referring Physician: Eva Grant Performed By: Mariah Evans RVT
--- NOTE | 2025-08-10 09:54 | ECHOD_ITS ---
Reason For Study Reason For Study: Amaurosis Fugax Procedure This was a 2D Doppler, Color Flow transthoracic echocardiogram. Technically difficult study. Patient had a hard time laying in position for test or tolerating probe pressure. Exam performed in department. Left Ventricle Normal LV size. Left ventricular systolic function is normal. The left ventricular ejection fraction is 60 %. No regional wall motion abnormalities noted. Right Ventricle Normal RV size. Normal systolic function. Atria Normal left atrium. Normal right atrium. Bubble contrast study negative for right to left interatrial shunt. Mitral Valve Normal mitral valve. Mild (1+) eccentric mitral valve insufficiency. Tricuspid Valve Normal tricuspid valve. Mild (1+) tricuspid valve insufficiency. Pulmonary artery systolic pressure is 25 mmHg. Aortic Valve Normal aortic valve. Trisinus/trileaflet aortic valve. Trivial aortic valve insufficiency. Pulmonic Valve Normal pulmonic valve. Great Vessels Normal aortic root. The pulmonary artery is normal size. Inferior vena cava collapse with respiration. Pericardium/Pleural No pericardial effusion. Medication 22 gauge I.V. with prn adaptor inserted into right arm. Performed a rapid injection of agitated mix of 9 cc saline and 1cc air to assess for atrial septal defect. MMode/2D Measurements & Calculations LVIDd: 4.3 cm IVSd: 1.0 cm LVOT diam: 2.0 cm LVIDs: 2.9 cm LVPWd: 0.97 cm RVDd: 3.2 cm FS: 31.7 % LVOT area: 3.1 cm2 Ao root diam: 3.1 cm LAV(MOD-bp): 57.8 ml LVAd ap4: 29.5 cm2 LAV(MOD-bp) Indexed: 32.5 ml/m2 LVLd ap4: 7.4 cm LAV(MOD-sp2): 55.8 ml EDV(MOD-sp4): 94.0 ml LAV(MOD-sp4): 56.7 ml EDV(sp4-el): 100.3 ml LVAs ap4: 16.3 cm2 LVLs ap4: 6.2 cm ESV(MOD-sp4): 36.7 ml ESV(sp4-el): 36.3 ml EF(MOD-sp4): 61.0 % EF(sp4-el): 63.8 % SV(MOD-sp4): 57.4 ml SV(sp4-el): 64.0 ml LA A4 area: 18.7 cm2 SI(MOD-sp4): 32.3 ml/m2 LA dimension(2D): 4.4 cm RA A4 area: 12.3 cm2 TAPSE: 1.7 cm Time Measurements MV dec time: 0.21 sec Doppler Measurements & Calculations MV E max hayes: 68.9 cm/sec Lat Peak E' Hayes: 9.0 cm/sec Med Peak E' Hayes: 6.7 cm/sec MV A max hayes: 119.1 cm/sec E/E' lat: 7.6 E/E' med: 10.3 MV E/A: 0.58 MV V2 max: 127.8 cm/sec MV P1/2t max hayes: 87.0 cm/sec Ao V2 max: 216.7 cm/sec MV max P.5 mmHg MV P1/2t: 73.8 msec Ao max P.8 mmHg MV V2 mean: 76.7 cm/sec MV dec slope: 345.3 cm/sec2 Ao V2 mean: 154.7 cm/sec MV mean P.8 mmHg MVA(P1/2t): 3.0 cm2 Ao mean P.9 mmHg MV V2 VTI: 30.2 cm Ao V2 VTI: 52.6 cm MVA(VTI): 2.0 cm2 AV (velocity ratio): 0.36 BRY(I,D): 1.1 cm2 BRY(V,D): 1.3 cm2 AI max hayes: 280.5 cm/sec LV V1 max: 90.9 cm/sec SV(LVOT): 59.0 ml AI max P.5 mmHg LV V1 max P.3 mmHg LV V1 mean P.8 mmHg AI dec slope: 205.6 cm/sec2 LV V1 mean: 64.0 cm/sec AI P1/2t: 399.5 msec LV V1 VTI: 19.0 cm TR max hayes: 222.1 cm/sec TR max P.7 mmHg ECHO/Echo Complete Interpretation Summary Normal LV size. Left ventricular systolic function is normal. The left ventricular ejection fraction is 60 %. Bubble contrast study negative for right to left interatrial shunt. Mild (1+) tricuspid valve insufficiency. Ordering Physician: Gus Motta Referring Physician: Gus Motta Performed By: Ash Conti RCS
== END | disposition home or self-care (01) ==
LOC: CVS 09:50
PROVIDERS: Referring Provider Ophthalmology; Visit Provider Ophthalmology
DX: G45.3 Amaurosis fugax (principal)
CPT/HCPCS: 93306; 93880; A4216